=== PATIENT | male | born 1935 | race Caucasian/White ===

== ENCOUNTER 2016-12-16 09:03 | Emergency (ER) | payer MEDICARE, OTHER ==
--- NOTE | 2016-12-16 09:23 | EDM.PDOC ---
ED HPI GENERAL MEDICAL PROBLEM - General Chief Complaint: Lower Extremity Injury/Pain Stated Complaint: IN BY AMBULANCE Time Seen by Provider: 12/16/16 09:10 Source of Information: Reports: Patient History Limitations: Reports: No Limitations - History of Present Illness INITIAL COMMENTS - FREE TEXT/NARRATIVE: This 81 yo male patient was brought to the ED by [facility] due to lower back, right hip, and right lateral thigh pain. The patient reports he has had some increased leg pain over the past 2 days, but his pain was much worse today than previous. Onset: Gradual Duration: Day(s): (2), Constant, Getting Worse Location: Reports: Back, Lower Extremity, Right Quality: Reports: Dull Severity: Moderate Improves with: Reports: None Worsens with: Reports: None Context: Reports: Other Associated Symptoms: Reports: No Other Symptoms Right Leg Pain Score (Numeric/FACES): 7 - Related Data Allergies Allergy/AdvReac Type Severity Reaction Status Date / Time Penicillins Allergy Rash Verified 12/16/16 09:03 Home Meds: Home Meds Diltiazem HCl [Diltiazem 24Hr Cd] 240 mg PO DAILY 10/20/13 [History] Hydrochlorothiazide 12.5 mg PO DAILY 10/20/13 [History] Insulin Aspart [NovoLOG] 1 unit SQ QID PRN 10/20/13 [History] Insulin Glarg,Human.Rec.Analog [Lantus] 30 units SQ BEDTIME 10/20/13 [History] Potassium Chloride [Klor-Con M20] 1 tab PO DAILY 10/20/13 [History] atorvaSTATin Calcium [Atorvastatin Calcium] 1 tab PO DAILY 10/20/13 [History] Aspirin 81 mg PO DAILY 11/03/15 [History] Lisinopril 20 mg PO DAILY 11/03/15 [History] Meclizine [Antivert] 12.5 mg PO Q6H PRN #30 tablet 11/05/15 [Rx] Past Medical History HEENT History: Reports: Cataract, Impaired Vision Cardiovascular History: Reports: High Cholesterol, Hypertension Gastrointestinal History: Reports: Chronic Constipation Genitourinary History: Reports: Prostate Disorder Musculoskeletal History: Reports: Other (See Below) Other Musculoskeletal History: left wrist drop Neurological History: Reports: Neuropathy, Diabetic, Seizure, Other (See Below) Other Neuro History: West Nile Virus Encephalitis Endocrine/Metabolic History: Reports: Diabetes, Type II, Obesity/BMI 30+ Oncologic (Cancer) History: Reports: Prostate 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 ED EXAM, GENERAL - Physical Exam Exam: See Below Exam Limited By: No Limitations General Appearance: Alert, WD/WN, Moderate Distress Eye Exam: Bilateral Eye: EOMI, Normal Inspection, PERRL Ears: Normal External Exam, Normal Canal, Hearing Grossly Normal, Normal TMs Nose: Normal Inspection, Normal Mucosa, No Blood Throat/Mouth: Normal Inspection, Normal Lips, Normal Teeth, Normal Gums, Normal Oropharynx, Normal Voice, No Airway Compromise Head: Atraumatic, Normocephalic Neck: Normal Inspection, Supple, Non-Tender, Full Range of Motion Respiratory/Chest: No Respiratory Distress, Lungs Clear, Normal Breath Sounds, No Accessory Muscle Use, Chest Non-Tender Cardiovascular: Normal Peripheral Pulses, Regular Rate, Rhythm, No Edema, No Gallop, No JVD, No Murmur, No Rub GI/Abdominal: Normal Bowel Sounds, Soft, Non-Tender, No Organomegaly, No Distention, No Abnormal Bruit, No Mass (Male) Exam: Deferred Rectal (Males) Exam: Deferred Back Exam: Normal Inspection, Full Range of Motion, NT Extremities: Normal Inspection, Normal Range of Motion, Non-Tender, Normal Capillary Refill, No Pedal Edema Neurological: Alert, Oriented, CN II-XII Intact, Normal Cognition, Normal Gait, Normal Reflexes, No Motor/Sensory Deficits Psychiatric: Normal Affect, Normal Mood Skin Exam: Warm, Dry, Intact, Normal Color, No Rash Lymphatic: No Adenopathy Course - Vital Signs Last Recorded V/S: Last Vital Signs Temp 36.4 C 12/16/16 10:00 Pulse 93 12/16/16 10:00 Resp 20 12/16/16 10:00 BP 168/75 H 12/16/16 10:00 Pulse Ox 98 12/16/16 10:00 - Orders/Labs/Meds Orders: Active Orders 24 hr Category Date Time Status Hip Min 2V or 3V w Pelvis Rt [CR] Stat Exams 12/16/16 09:03 Taken Lumbar Spine 2 or 3V [CR] Urgent Exams 12/16/16 09:03 Taken Ketorolac [Toradol] Med 12/16/16 10:41 Once 30 mg IVPUSH ONETIME ONE Orphenadrine [Norflex] Med 12/16/16 10:42 Once 30 mg IM ONETIME ONE Departure - Departure Time of Disposition: 10:44 Disposition: Home, Self-Care 01 Condition: Fair Clinical Impression: Right sided sciatica - Discharge Information Instructions: Sciatica, [id number] Forms: ED Department Discharge Care Plan Goals: The patient was advised of the examination and x-ray results during the visit. The patient was given an IV dose of Toradol (30 mg) and IM dose of Norflex (30 mg) while in the ED. The patient was discharged with a script for Toradol (10 mg ) #16 to take 1 by mouth every 6 hours and Flexeril (5 mg) #10 to take 1 by mouth at bedtime as needed. If the patient continues to have symptoms or concerns, the patient should follow-up with his primary care provider or return to the emergency department. - My Orders Last 24 Hours: My Active Orders 12/16/16 09:03 Hip Min 2V or 3V w Pelvis Rt [CR] Stat Lumbar Spine 2 or 3V [CR] Urgent 12/16/16 10:41 Ketorolac [Toradol] 30 mg IVPUSH ONETIME ONE 12/16/16 10:42 Orphenadrine [Norflex] 30 mg IM ONETIME ONE - Assessment/Plan Last 24 Hours: My Active Orders 12/16/16 09:03 Hip Min 2V or 3V w Pelvis Rt [CR] Stat Lumbar Spine 2 or 3V [CR] Urgent 12/16/16 10:41 Ketorolac [Toradol] 30 mg IVPUSH ONETIME ONE 12/16/16 10:42 Orphenadrine [Norflex] 30 mg IM ONETIME ONE
[2016-12-16 10:03] VITALS: BP 168/75
[2016-12-16] MEDS ORDERED: Ketorolac 30 MG/ML SDV IVPUSH ONE (10:41)
== END 2016-12-16 11:20 | disposition home or self-care (01) ==
LOC: DL.ED 09:03
DX: M54.41 Lumbago with sciatica, right side (principal); H54.7 Unspecified visual loss; E78.00 Pure hypercholesterolemia, unspecified; I10 Essential (primary) hypertension; E11.40 Type 2 diabetes mellitus with diabetic neuropathy, unspecified; E66.9 Obesity, unspecified; Z98.890 Other specified postprocedural states; Z98.49 Cataract extraction status, unspecified eye; Z88.0 Allergy status to penicillin; Z79.899 Other long term (current) drug therapy
CPT/HCPCS: 72100; 73502; 96372; 96374; 99284; J1885; J2360

== ENCOUNTER 2016-12-17 18:15 | Observation (INO) | payer MEDICARE, OTHER ==
[2016-12-17] MEDS ORDERED: HYDROmorphone 1 MG/ML Syringe IVPUSH ONE (19:40)
[2016-12-17] MEDS ORDERED: Ondansetron 4 MG/2 ML SDV IV ONE (19:40)
[2016-12-17 20:22] LABS: CHLORIDE,CL 101 mmol/L (101-111); SODIUM,NA 142 mmol/L (135-145)
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
[2016-12-17] MEDS ORDERED: Sodium Chloride 0.9% 10 ML Syringe FLUSH PRN (21:08)
[2016-12-17] MEDS ORDERED: Acetaminophen 325 MG Tab PO PRN (21:08)
[2016-12-17] MEDS ORDERED: Ondansetron 4 MG Tab.DIS PO PRN (21:08)
[2016-12-17] MEDS ORDERED: Ketorolac 30 MG/ML SDV IM PRN (21:08)
[2016-12-17] MEDS ORDERED: Meclizine 12.5 MG Tab PO PRN (21:13)
[2016-12-17] MEDS ORDERED: Insulin Aspart 100 Units/ML 3 ML Pen SUBCUT PRN (21:13)
[2016-12-17] MEDS: Heparin Sodium 5,000 Units/ML Vial SUBCUT SCH (22:04)
[2016-12-17] MEDS: Insulin Detemir 100 Units/ML 3 ML Pen SUBCUT SCH (23:06)
[2016-12-17] MEDS: HYDROmorphone 1 MG/ML Syringe IVPUSH PRN (23:21)
[2016-12-18] MEDS ORDERED: Ketorolac 30 MG/ML SDV IVPUSH PRN (01:07)
[2016-12-18] MEDS ORDERED: Insulin Aspart 100 Units/ML 3 ML Pen SUBCUT SCH (09:00)
--- NOTE | 2016-12-18 09:02 | HP ---
CHIEF COMPLAINT: Mr. Kishan Knowles is an 81-year-old male with medical history of diabetes mellitus, dyslipidemia, and hypertension. The patient began to experience pain in the right hip area about 1 week ago. Pain initially was constant but intermittently flared up. Intensity is up to 10 on a scale of 0 to 10. It radiates down to the right knee. It is worse when he tries to ambulate. He was seen in the emergency room yesterday, treated empirically with pain medications, and sent home. He did okay for a few hours but the pain got worse when he tried to take off his stockings. Did have associated nausea and vomited once today. No fever. No chills. No cough. No wheezing. No dysuria, frequency, or micturition. REVIEW OF SYSTEMS: A 10-point review of systems was performed including constitutional, cardiac, respiratory, gastrointestinal, and genitourinary. No other pertinent findings except as noted above. PAST MEDICAL HISTORY: Dyslipidemia, hypertension, diabetes mellitus, benign prostatic hypertrophy, impaired vision. FAMILY HISTORY: Reviewed and considered noncontributory. SOCIAL HISTORY: No tobacco use. No alcohol use. The patient is single. CURRENT MEDICATIONS: Reviewed. Includes: 1. Diltiazem. 2. Lipitor. 3. Insulin. 4. Hydrochlorothiazide. 5. Aspirin. 6. Lisinopril. 7. Meclizine. OBJECTIVE: General: The patient is alert and oriented to place, time, and person. Head: Atraumatic and normocephalic. Ears, Nose, and Throat: Unremarkable. Neck: Supple. Chest: Clear to auscultation. Cardiovascular System: Regular rate and rhythm. Abdomen: Soft and nontender. Musculoskeletal: Tenderness over the right hip area on palpation. No rebound tenderness. Extremities: No pedal edema. No finger clubbing. Skin: No rash. Vital Signs: Reviewed and considered noncontributory. Blood pressure is elevated at 168/72. LABORATORY DATA: Complete blood count is normal. Basic metabolic panel is unremarkable except for glucose of 230. Urinalysis shows 250 glucose with no white cells. ASSESSMENT: 1. Right hip pain. This is likely due to bursitis. Palpation of the left as well as the right hip worsens the pain. This suggests bursitis. 2. Possible osteoarthritis of the right hip. The patient does have increased pain when he moves his right lower extremity. Could still be due to bursitis. CT scan did show significant osteoarthritis. 3. Diabetes mellitus, type 2, on insulin therapy. 4. Hypertension. Blood pressure is suboptimally controlled. 5. Dyslipidemia. PLAN: 1. Admit the patient to medical floor. 2. Intravenous Toradol and intravenous Dilaudid for pain control. 3. Antiemetic protocol. 4. The patient may end up needing to have steroid injection to the right hip area. I suspect this might be trochanteric bursitis. Chart reviewed. Discussed with emergency room physician floor covering printer assistant. [facility] /[id number] FRANCIA
[2016-12-18] MEDS: atorvaSTATin 10 MG Tab PO SCH (09:09)
[2016-12-18] MEDS: Hydrochlorothiazide 25 MG Tab PO SCH (09:09)
[2016-12-18] MEDS: Diltiazem 240 MG Cap.CD PO SCH (09:09)
[2016-12-18] MEDS: Lisinopril 20 MG Tab PO SCH (09:09)
[2016-12-18] MEDS: Aspirin 81 MG Tab.Chew PO SCH (09:09)
[2016-12-18] MEDS: Potassium Chloride 10 MEQ Tab.ER PO SCH (09:09)
[2016-12-18] MEDS: HYDROmorphone 1 MG/ML Syringe IVPUSH PRN ×2 (09:32→20:19)
--- NOTE | 2016-12-18 09:35 | PCM.PN ---
- General Info Date of Service: 12/18/16 Admission Dx/Problem (Free Text): r. sided hip pain, knee pain Subjective Update: Presented with about a week history of right-sided hip pain The pain starts in the hip and radiates down associated with pain in the knee as well. There is no redness, no falling. Pain is sharp on and off, worse with activity. Better with rest Overnight was treated with Toradol, Dilaudid Functional Status: Reports: Tolerating Diet. Denies: Pain Controlled, Ambulating - Review of Systems General: Reports: Weakness. Denies: Fever Pulmonary: Denies: Shortness of Breath Cardiovascular: Denies: Chest Pain Gastrointestinal: Denies: Abdominal Pain Genitourinary: Denies: Dysuria - Patient Data Vitals - Most Recent: Last Vital Signs Temp 36.7 C 12/18/16 07:30 Pulse 50 L 12/18/16 07:30 Resp 20 12/18/16 07:30 BP 177/86 H 12/18/16 09:09 Pulse Ox 99 12/18/16 07:30 Weight - Most Recent: 80.104 kg I&O - Last 24 Hours: Intake & Output 12/17/16 12/18/16 12/18/16 22:59 06:59 14:59 Intake Total 240 150 120 Output Total 200 Balance 240 -50 120 Lab Results Last 24 Hours: Laboratory Results - last 24 hr 12/18/16 Range/Units 07:52 POC Glucose 149 H (83-110) mg/dl Med Orders - Current: Current Medications Acetaminophen (Tylenol) 650 mg PO Q4H PRN PRN Reason: Pain (Mild 1-3)/fever Aspirin (Aspirin) 81 mg PO DAILY [facility] Last Admin: 12/18/16 09:09 Dose: 81 mg Atorvastatin Calcium (Lipitor) 10 mg PO DAILY [facility] Last Admin: 12/18/16 09:09 Dose: 10 mg Dexamethasone (Dexamethasone) 4 mg PO BID [facility] Diltiazem HCl (Cardizem Cd) 240 mg PO DAILY [facility] Last Admin: 12/18/16 09:09 Dose: 240 mg Heparin Sodium (Porcine) (Heparin Sodium) 5,000 units SUBCUT Q8HR [facility] Last Admin: 12/17/16 22:04 Dose: 5,000 units Hydrochlorothiazide (Hydrochlorothiazide) 12.5 mg PO DAILY [facility] Last Admin: 12/18/16 09:09 Dose: 12.5 mg Hydromorphone HCl (Dilaudid) 0.25 mg IVPUSH Q2H PRN PRN Reason: Pain (severe 7-10) Last Admin: 12/17/16 23:21 Dose: 0.25 mg Insulin Aspart (Novolog) 1 unit SUBCUT QID [facility] Insulin Detemir (Levemir) 30 unit SUBCUT BEDTIME [facility] Last Admin: 12/17/16 23:06 Dose: 30 units Ketorolac Tromethamine (Toradol) 15 mg IVPUSH Q6H PRN PRN Reason: Pain (moderate 4-6) Stop: 12/23/16 01:07 Lisinopril (Prinivil) 20 mg PO DAILY [facility] Last Admin: 12/18/16 09:09 Dose: 20 mg Meclizine HCl (Antivert) 12.5 mg PO Q6H PRN PRN Reason: dizzyness Ondansetron HCl (Zofran Odt) 8 mg PO Q4H PRN PRN Reason: nausea, able to take PO Potassium Chloride (Klor-Con 10) 20 meq PO WITHBREAKFAST [facility] Last Admin: 12/18/16 09:09 Dose: 20 meq Sodium Chloride (Saline Flush) 10 ml FLUSH ASDIRECTED PRN PRN Reason: Keep Vein Open Discontinued Medications Hydromorphone HCl (Dilaudid) 0.5 mg IVPUSH ONETIME ONE Stop: 12/17/16 19:41 Last Admin: 12/17/16 19:47 Dose: 0.5 mg Insulin Aspart (Novolog) 1 unit SUBCUT QID PRN PRN Reason: Blood Glucose Ketorolac Tromethamine (Toradol) 30 mg IM Q6H PRN PRN Reason: Pain (moderate 4-6) Stop: 12/18/16 01:07 Ketorolac Tromethamine (Toradol) 30 mg IVPUSH Q6H PRN PRN Reason: Pain (moderate 4-6) Stop: 12/23/16 01:07 Last Admin: 12/18/16 01:34 Dose: 30 mg Ondansetron HCl (Zofran) 4 mg IV ONETIME ONE Stop: 12/17/16 19:41 Last Admin: 12/17/16 19:47 Dose: 4 mg - Exam Quality Assessment: No: Supplemental Oxygen General: Alert, Oriented Neck: Supple Lungs: Clear to Auscultation, Normal Respiratory Effort Cardiovascular: Regular Rate, Regular Rhythm GI/Abdominal Exam: Normal Bowel Sounds, Soft, Non-Tender Back Exam: Normal Inspection Extremities: Normal Inspection, No Pedal Edema, Other (No knee swelling) Skin: Warm, Dry Neurological: No New Focal Deficit Psy/Mental Status: Alert, Normal Affect - Problem List & Annotations (1) Diabetes SNOMED Code(s): 95410612 Code(s): E11.9 - TYPE 2 DIABETES MELLITUS WITHOUT COMPLICATIONS Status: Acute Current Visit: Yes Qualifiers: Diabetes mellitus type: type 2 Diabetes mellitus complication status: without complication Diabetes mellitus termite inspector insulin use: unspecified termite inspector insulin use status Qualified Code(s): E11.9 - Type 2 diabetes mellitus without complications (2) HTN (hypertension) SNOMED Code(s): 52608024 Code(s): I10 - ESSENTIAL (PRIMARY) HYPERTENSION Status: Acute Current Visit: Yes Qualifiers: Hypertension type: essential hypertension Qualified Code(s): I10 - Essential (primary) hypertension (3) Right sided sciatica SNOMED Code(s): 66611026 Code(s): M54.31 - SCIATICA, RIGHT SIDE Status: Acute Current Visit: No - Problem List Review Problem List Initiated/Reviewed/Updated: Yes - My Orders Last 24 Hours: My Active Orders 12/18/16 09:11 Ketorolac [Toradol] 15 mg IVPUSH Q6H PRN 12/18/16 09:30 Cooling Warming Measures [RC] ASDIRECTED K Pad [Heat Therapy] [OM.PC] Routine 12/18/16 21:00 Dexamethasone 4 mg PO BID 12/18/16 Lunch Consistent Carbohydrate Diet [DIET] - Assessment Assessment:: 1. Right-sided hip pain, radiating down to the knee This might represent osteoarthritis versus sciatica No apparent right hip fracture on x-ray Will treat with physical therapy, occupational therapy. Add dexamethasone, Neurontin. Will use heat and cold therapy. 2. Hypertension Treat with hydrochlorothiazide, lisinopril, Cardizem 3. Diabetes Treat with Levemir and short-acting insulin combination. Use supplemental insulin as needed Follow blood sugars 4 times a day Follow blood sugars with the systemic steroids, blood sugars might be elevated 4. DVT prophylaxis will be with subcutaneous heparin Discussed with Dr. Martin today
[2016-12-18] MEDS: Gabapentin 100 MG Cap PO SCH ×3 (10:25→20:57)
[2016-12-18] MEDS: Lactulose Soln 10 GM/15 ML 30 ML UD Cup PO SCH ×2 (10:25→14:17)
[2016-12-18] MEDS: Heparin Sodium 5,000 Units/ML Vial SUBCUT SCH ×3 (11:04→21:46)
[2016-12-18] MEDS: Ketorolac 30 MG/ML SDV IVPUSH PRN (11:16)
[2016-12-18] MEDS: Insulin Aspart 100 Units/ML 3 ML Pen SUBCUT SCH ×2 (12:40→17:33)
[2016-12-18] MEDS: Dexamethasone 4 MG Tab PO SCH (20:57)
[2016-12-18] MEDS ORDERED: INSULIN GLARG HUMAN REC ANALOG 30 UNIT SQ SCH (21:00)
[2016-12-18] MEDS: Insulin Detemir 100 Units/ML 3 ML Pen SUBCUT SCH (21:45)
[2016-12-19] MEDS: Ketorolac 30 MG/ML SDV IVPUSH PRN (05:38)
[2016-12-19] MEDS: Heparin Sodium 5,000 Units/ML Vial SUBCUT SCH ×3 (05:41→22:17)
[2016-12-19] MEDS: Insulin Aspart 100 Units/ML 3 ML Pen SUBCUT SCH ×3 (10:16→17:10)
[2016-12-19] MEDS: Potassium Chloride 10 MEQ Tab.ER PO SCH (10:17)
[2016-12-19] MEDS: Hydrochlorothiazide 25 MG Tab PO SCH (10:18)
[2016-12-19] MEDS: Aspirin 81 MG Tab.Chew PO SCH (10:19)
[2016-12-19] MEDS: Dexamethasone 4 MG Tab PO SCH ×2 (10:20→20:58)
[2016-12-19] MEDS: Lisinopril 20 MG Tab PO SCH (10:20)
[2016-12-19] MEDS: Diltiazem 240 MG Cap.CD PO SCH (10:20)
[2016-12-19] MEDS: Gabapentin 100 MG Cap PO SCH ×3 (10:21→20:58)
[2016-12-19] MEDS: atorvaSTATin 10 MG Tab PO SCH (10:21)
[2016-12-19] MEDS ORDERED: Ibuprofen 400 MG Tab PO SCH (10:45)
--- NOTE | 2016-12-19 10:55 | PCM.PN ---
- General Info Date of Service: 12/19/16 Admission Dx/Problem (Free Text): r. sided hip pain, knee pain Subjective Update: Presented with about a week history of right-sided hip pain The pain starts in the hip and radiates down associated with pain in the knee as well. There is no redness, no falling. Pain is sharp on and off, worse with activity. Better with rest. Has improved since admission. Was working with physical therapy but that made the pain worse. Reports improvement since starting Neurontin, dexamethasone. - Review of Systems General: Denies: Fever Pulmonary: Denies: Shortness of Breath Cardiovascular: Denies: Chest Pain Gastrointestinal: Denies: Abdominal Pain Musculoskeletal: Reports: Leg Pain (right). Denies: Neck Pain Neurological: Denies: Confusion - Patient Data Vitals - Most Recent: Last Vital Signs Temp 36.9 C 12/19/16 07:00 Pulse 78 12/19/16 07:00 Resp 20 12/19/16 07:00 BP 134/62 12/19/16 10:20 Pulse Ox 98 12/19/16 07:00 Weight - Most Recent: 80.104 kg I&O - Last 24 Hours: Intake & Output 12/18/16 12/19/16 12/19/16 22:59 06:59 14:59 Intake Total 120 150 Balance 120 150 Lab Results Last 24 Hours: Laboratory Results - last 24 hr 12/18/16 12/18/16 12/18/16 Range/Units 11:12 16:49 21:00 POC Glucose 213 H 235 H 202 H (83-110) mg/dl 12/19/16 Range/Units 07:51 POC Glucose 324 H (83-110) mg/dl Med Orders - Current: Current Medications Acetaminophen (Tylenol) 650 mg PO Q4H PRN PRN Reason: Pain (Mild 1-3)/fever Aspirin (Aspirin) 81 mg PO DAILY [facility] Last Admin: 12/19/16 10:19 Dose: 81 mg Atorvastatin Calcium (Lipitor) 10 mg PO DAILY [facility] Last Admin: 12/19/16 10:21 Dose: 10 mg Dexamethasone (Dexamethasone) 4 mg PO BID [facility] Last Admin: 12/19/16 10:20 Dose: 4 mg Diltiazem HCl (Cardizem Cd) 240 mg PO DAILY [facility] Last Admin: 12/19/16 10:20 Dose: 240 mg Gabapentin (Neurontin) 200 mg PO TID [facility] Heparin Sodium (Porcine) (Heparin Sodium) 5,000 units SUBCUT Q8HR [facility] Last Admin: 12/19/16 05:41 Dose: 5,000 units Hydrochlorothiazide (Hydrochlorothiazide) 25 mg PO DAILY [facility] Hydromorphone HCl (Dilaudid) 0.25 mg IVPUSH Q2H PRN PRN Reason: Pain (severe 7-10) Last Admin: 12/18/16 20:19 Dose: 0.25 mg Ibuprofen (Motrin) 400 mg PO Q8H [facility] Insulin Aspart (Novolog) 0 unit SUBCUT TIDAC [facility] PRN Reason: Protocol Last Admin: 12/19/16 10:16 Dose: 8 units Insulin Detemir (Levemir) 30 unit SUBCUT BEDTIME [facility] Last Admin: 12/18/16 21:45 Dose: 30 units Lisinopril (Prinivil) 20 mg PO DAILY [facility] Last Admin: 12/19/16 10:20 Dose: 20 mg Meclizine HCl (Antivert) 12.5 mg PO Q6H PRN PRN Reason: dizzyness Ondansetron HCl (Zofran Odt) 8 mg PO Q4H PRN PRN Reason: nausea, able to take PO Oxycodone/Acetaminophen (Percocet 325-5 Mg) 1 tab PO Q6H PRN PRN Reason: Pain Potassium Chloride (Klor-Con 10) 20 meq PO WITHBREAKFAST [facility] Last Admin: 12/19/16 10:17 Dose: 20 meq Senna/Docusate Sodium (Senna Plus) 1 tab PO BID [facility] Last Admin: 12/19/16 10:18 Dose: 1 tab Sodium Chloride (Saline Flush) 10 ml FLUSH ASDIRECTED PRN PRN Reason: Keep Vein Open Discontinued Medications Gabapentin (Neurontin) 100 mg PO TID [facility] Last Admin: 12/19/16 10:21 Dose: 100 mg Hydrochlorothiazide (Hydrochlorothiazide) 12.5 mg PO DAILY [facility] Last Admin: 12/19/16 10:18 Dose: 12.5 mg Hydromorphone HCl (Dilaudid) 0.5 mg IVPUSH ONETIME ONE Stop: 12/17/16 19:41 Last Admin: 12/17/16 19:47 Dose: 0.5 mg Insulin Aspart (Novolog) 1 unit SUBCUT QID PRN PRN Reason: Blood Glucose Insulin Aspart (Novolog) 1 unit SUBCUT QID [facility] Last Admin: 12/18/16 09:31 Dose: 1 unit Ketorolac Tromethamine (Toradol) 30 mg IM Q6H PRN PRN Reason: Pain (moderate 4-6) Stop: 12/18/16 01:07 Ketorolac Tromethamine (Toradol) 30 mg IVPUSH Q6H PRN PRN Reason: Pain (moderate 4-6) Stop: 12/23/16 01:07 Last Admin: 12/18/16 01:34 Dose: 30 mg Ketorolac Tromethamine (Toradol) 15 mg IVPUSH Q6H PRN PRN Reason: Pain (moderate 4-6) Stop: 12/23/16 01:07 Last Admin: 12/19/16 05:38 Dose: 15 mg Lactulose (Cephulac) 20 gm PO TID [facility] Stop: 12/18/16 14:01 Last Admin: 12/18/16 14:17 Dose: 20 gm Ondansetron HCl (Zofran) 4 mg IV ONETIME ONE Stop: 12/17/16 19:41 Last Admin: 12/17/16 19:47 Dose: 4 mg - Exam General: Alert, Oriented Neck: Supple Lungs: Clear to Auscultation, Normal Respiratory Effort GI/Abdominal Exam: Normal Bowel Sounds, Soft, Non-Tender Back Exam: Normal Inspection. No: Paraspinal Tenderness Extremities: No Pedal Edema, Leg Pain Skin: Warm, Dry Neurological: No New Focal Deficit Psy/Mental Status: Alert, Normal Affect, Normal Mood - Problem List & Annotations (1) Diabetes SNOMED Code(s): 65200346 Code(s): E11.9 - TYPE 2 DIABETES MELLITUS WITHOUT COMPLICATIONS Status: Acute Current Visit: Yes Qualifiers: Diabetes mellitus type: type 2 Diabetes mellitus complication status: without complication Diabetes mellitus fpc insulin use: unspecified fpc insulin use status Qualified Code(s): E11.9 - Type 2 diabetes mellitus without complications (2) HTN (hypertension) SNOMED Code(s): 17176175 Code(s): I10 - ESSENTIAL (PRIMARY) HYPERTENSION Status: Acute Current Visit: Yes Qualifiers: Hypertension type: essential hypertension Qualified Code(s): I10 - Essential (primary) hypertension (3) Right sided sciatica SNOMED Code(s): 38916706 Code(s): M54.31 - SCIATICA, RIGHT SIDE Status: Acute Current Visit: No - Problem List Review Problem List Initiated/Reviewed/Updated: Yes - My Orders Last 24 Hours: My Active Orders 12/18/16 12:45 Insulin Aspart [NovoLOG] See Protocol SUBCUT TIDAC 12/18/16 21:00 Dexamethasone 4 mg PO BID Docusate Sodium/Sennosides [Senna Plus] 1 tab PO BID 12/18/16 Lunch Consistent Carbohydrate Diet [DIET] 12/19/16 10:44 Gabapentin [Neurontin] 200 mg PO TID 12/19/16 10:45 Ibuprofen [Motrin] 400 mg PO Q8H 12/19/16 10:49 Acetaminophen/oxyCODONE [Percocet 325-5 MG] 1 tab PO Q6H PRN 12/20/16 09:00 Hydrochlorothiazide 25 mg PO DAILY - Assessment Assessment:: 1. Right-sided hip pain, radiating down to the knee This might represent hip osteoarthritis versus sciatica No apparent right hip fracture on x-ray Will treat with physical therapy, occupational therapy. contiue dexamethasone, increase Neurontin. add scheduled motrin use prn percocet Will use heat and cold therapy. 2. Hypertension uncontrolled Treat with lisinopril, Cardizem increase hydrochlorothiazide 3. Diabetes Treat with Levemir and short-acting insulin combination. Use supplemental insulin as needed Follow blood sugars 4 times a day Follow blood sugars with the systemic steroids, blood sugars might be elevated 4. DVT prophylaxis will be with subcutaneous heparin
[2016-12-19] MEDS ORDERED: Insulin Aspart 100 Units/ML 3 ML Pen SUBCUT ONE (11:25)
[2016-12-19] MEDS: HYDROmorphone 1 MG/ML Syringe IVPUSH PRN (12:12)
[2016-12-19] MEDS: Ibuprofen 400 MG Tab PO SCH ×2 (13:57→22:18)
[2016-12-19] MEDS: Acetaminophen/oxyCODONE 325-5 MG Tab PO PRN (17:16)
[2016-12-19] MEDS: Insulin Detemir 100 Units/ML 3 ML Pen SUBCUT SCH (21:16)
[2016-12-20] MEDS: Ibuprofen 400 MG Tab PO SCH ×2 (05:23→13:59)
[2016-12-20] MEDS: Heparin Sodium 5,000 Units/ML Vial SUBCUT SCH (05:24)
[2016-12-20] MEDS: Potassium Chloride 10 MEQ Tab.ER PO SCH (08:39)
[2016-12-20] MEDS: Insulin Aspart 100 Units/ML 3 ML Pen SUBCUT SCH ×2 (08:39→12:12)
[2016-12-20] MEDS: Dexamethasone 4 MG Tab PO SCH (08:40)
[2016-12-20] MEDS: Diltiazem 240 MG Cap.CD PO SCH (08:40)
[2016-12-20] MEDS: Aspirin 81 MG Tab.Chew PO SCH (08:40)
[2016-12-20] MEDS: atorvaSTATin 10 MG Tab PO SCH (08:41)
[2016-12-20] MEDS: Gabapentin 100 MG Cap PO SCH ×2 (08:41→13:59)
[2016-12-20] MEDS: Lisinopril 20 MG Tab PO SCH (08:41)
[2016-12-20] MEDS ORDERED: Hydrochlorothiazide 25 MG Tab PO SCH (09:00)
[2016-12-20 12:10] VITALS: BP 153/79
[2016-12-20] MEDS: Acetaminophen/oxyCODONE 325-5 MG Tab PO PRN (12:11)
--- NOTE | 2016-12-20 13:48 | PCM.DCSUM1 ---
Discharge Summary - Hospital Course Free Text/Narrative:: 1. Right-sided hip pain, radiating down to the knee likely due to sciatica No apparent right hip fracture on x-ray CT of the pelvis showed spinal stenosis at L3/L4 and L4/L5 levels, no acute fracture Treated with physical therapy, occupational therapy. contiue dexamethasone, Neurontin. add scheduled motrin use prn percocet use heat and cold therapy. 2. Hypertension was uncontrolled Treat with lisinopril, Cardizem increase hydrochlorothiazide 3. Diabetes Treat with Levemir and short-acting insulin combination. follow up with PMD and out pt PT also discussed suggestions to move into assisted living - Discharge Data Discharge Date: 12/20/16 Discharge Disposition: Home, Self-Care 01 Condition: Good - Discharge Diagnosis/Problem(s) (1) Diabetes SNOMED Code(s): 36288535 ICD Code: E11.9 - TYPE 2 DIABETES MELLITUS WITHOUT COMPLICATIONS Status: Acute Current Visit: Yes Qualifiers: Diabetes mellitus type: type 2 Diabetes mellitus complication status: without complication Diabetes mellitus alf insulin use: unspecified terminal carman insulin use status Qualified Code(s): E11.9 - Type 2 diabetes mellitus without complications (2) HTN (hypertension) SNOMED Code(s): 13041208 ICD Code: I10 - ESSENTIAL (PRIMARY) HYPERTENSION Status: Acute Current Visit: Yes Qualifiers: Hypertension type: essential hypertension Qualified Code(s): I10 - Essential (primary) hypertension (3) Right sided sciatica SNOMED Code(s): 70725835 ICD Code: M54.31 - SCIATICA, RIGHT SIDE Status: Acute Current Visit: No - Patient Instructions Diet: Diabetic Diet Activity: As Tolerated - Discharge Plan Prescriptions/Med Rec: Ibuprofen [Motrin] 400 mg PO Q8HR #30 tablet Acetaminophen/oxyCODONE [Percocet 325-5 MG] 1 tab PO Q6H PRN #12 tablet PRN Reason: Pain Cyclobenzaprine [Flexeril] 5 mg PO BEDTIME PRN #30 tablet PRN Reason: Pain Dexamethasone 4 mg PO DAILY #3 tablet Gabapentin [Neurontin] 200 mg PO TID #90 cap Hydrochlorothiazide 25 mg PO DAILY #30 tablet Home Medications: Home Meds Diltiazem HCl [Diltiazem 24Hr Cd] 240 mg PO DAILY 10/20/13 [History] Insulin Aspart [NovoLOG] 1 unit SQ QID PRN 10/20/13 [History] Insulin Glarg,Human.Rec.Analog [Lantus] 30 units SQ BEDTIME 10/20/13 [History] Potassium Chloride [Klor-Con M20] 1 tab PO DAILY 10/20/13 [History] atorvaSTATin Calcium [Atorvastatin Calcium] 1 tab PO DAILY 10/20/13 [History] Aspirin 81 mg PO DAILY 11/03/15 [History] Lisinopril 20 mg PO DAILY 11/03/15 [History] Meclizine [Antivert] 12.5 mg PO Q6H PRN #30 tablet 11/05/15 [Rx] Docusate Sodium/Sennosides [Senna Plus] 1 tab PO BEDTIME 12/17/16 [History] Sennosides [Laxative Maximum Strength] 25 mg PO BEDTIME 12/17/16 [History] Acetaminophen/oxyCODONE [Percocet 325-5 MG] 1 tab PO Q6H PRN #12 tablet [Rx] Cyclobenzaprine [Flexeril] 5 mg PO BEDTIME PRN #30 tablet 12/20/16 [Rx] Dexamethasone 4 mg PO DAILY #3 tablet 12/20/16 [Rx] Gabapentin [Neurontin] 200 mg PO TID #90 cap 12/20/16 [Rx] Hydrochlorothiazide 25 mg PO DAILY #30 tablet 12/20/16 [Rx] Ibuprofen [Motrin] 400 mg PO Q8HR #30 tablet 12/20/16 [Rx] Patient Handouts: Sciatica Referrals: PCP,Unobtain [Ordering Only Provider] - (dr. Pena in 2-3 days) - General Info Date of Service: 12/20/16 Functional Status: Reports: Pain Controlled - Review of Systems General: Denies: Fever, Weakness Pulmonary: Denies: Shortness of Breath Cardiovascular: Denies: Chest Pain Musculoskeletal: Reports: Leg Pain (episodes of r. hip, thigh, knee pain but able to ambulate with walker) Neurological: Denies: Confusion - Patient Data Vitals - Most Recent: Last Vital Signs Temp 37.1 C 12/20/16 11:00 Pulse 86 12/20/16 11:00 Resp 20 12/20/16 11:00 BP 153/79 H 12/20/16 11:00 Pulse Ox 97 12/20/16 11:00 Weight - Most Recent: 80.104 kg I&O - Last 24 hours: Intake & Output 12/19/16 12/20/16 12/20/16 22:59 06:59 14:59 Output Total 350 250 Balance -350 -250 Lab Results - Last 24 hrs: Laboratory Results - last 24 hr 12/19/16 12/19/16 12/20/16 Range/Units 16:47 21:14 07:36 POC Glucose 366 H 365 H 305 H (83-110) mg/dl 12/20/16 Range/Units 10:47 POC Glucose 344 H (83-110) mg/dl Med Orders - Current: Current Medications Acetaminophen (Tylenol) 650 mg PO Q4H PRN PRN Reason: Pain (Mild 1-3)/fever Aspirin (Aspirin) 81 mg PO DAILY [facility] Last Admin: 12/20/16 08:40 Dose: 81 mg Atorvastatin Calcium (Lipitor) 10 mg PO DAILY [facility] Last Admin: 12/20/16 08:41 Dose: 10 mg Dexamethasone (Dexamethasone) 4 mg PO DAILY [facility] Diltiazem HCl (Cardizem Cd) 240 mg PO DAILY [facility] Last Admin: 12/20/16 08:40 Dose: 240 mg Gabapentin (Neurontin) 200 mg PO TID [facility] Last Admin: 12/20/16 08:41 Dose: 200 mg Heparin Sodium (Porcine) (Heparin Sodium) 5,000 units SUBCUT Q8HR [facility] Last Admin: 12/20/16 05:24 Dose: 5,000 units Hydrochlorothiazide (Hydrochlorothiazide) 25 mg PO DAILY [facility] Last Admin: 12/20/16 08:41 Dose: 25 mg Hydromorphone HCl (Dilaudid) 0.25 mg IVPUSH Q2H PRN PRN Reason: Pain (severe 7-10) Last Admin: 12/19/16 12:12 Dose: 0.25 mg Ibuprofen (Motrin) 400 mg PO Q8HR [facility] Last Admin: 12/20/16 05:23 Dose: 400 mg Insulin Aspart (Novolog) 0 unit SUBCUT TIDAC [facility] PRN Reason: Protocol Last Admin: 12/20/16 12:12 Dose: 8 units Insulin Detemir (Levemir) 30 unit SUBCUT BEDTIME [facility] Last Admin: 12/19/16 21:16 Dose: 30 units Lisinopril (Prinivil) 20 mg PO DAILY [facility] Last Admin: 12/20/16 08:41 Dose: 20 mg Meclizine HCl (Antivert) 12.5 mg PO Q6H PRN PRN Reason: dizzyness Ondansetron HCl (Zofran Odt) 8 mg PO Q4H PRN PRN Reason: nausea, able to take PO Oxycodone/Acetaminophen (Percocet 325-5 Mg) 1 tab PO Q6H PRN PRN Reason: Pain Last Admin: 12/20/16 12:11 Dose: 1 tab Potassium Chloride (Klor-Con 10) 20 meq PO WITHBREAKFAST [facility] Last Admin: 12/20/16 08:39 Dose: 20 meq Senna/Docusate Sodium (Senna Plus) 1 tab PO BID [facility] Last Admin: 12/20/16 08:42 Dose: 1 tab Sodium Chloride (Saline Flush) 10 ml FLUSH ASDIRECTED PRN PRN Reason: Keep Vein Open Discontinued Medications Dexamethasone (Dexamethasone) 4 mg PO BID [facility] Last Admin: 12/20/16 08:40 Dose: 4 mg Gabapentin (Neurontin) 100 mg PO TID [facility] Last Admin: 12/19/16 10:21 Dose: 100 mg Hydrochlorothiazide (Hydrochlorothiazide) 12.5 mg PO DAILY [facility] Last Admin: 12/19/16 10:18 Dose: 12.5 mg Hydromorphone HCl (Dilaudid) 0.5 mg IVPUSH ONETIME ONE Stop: 12/17/16 19:41 Last Admin: 12/17/16 19:47 Dose: 0.5 mg Ibuprofen (Motrin) 400 mg PO Q8H [facility] Last Admin: 12/19/16 11:26 Dose: Not Given Insulin Aspart (Novolog) 1 unit SUBCUT QID PRN PRN Reason: Blood Glucose Insulin Aspart (Novolog) 1 unit SUBCUT QID [facility] Last Admin: 12/18/16 09:31 Dose: 1 unit Insulin Aspart (Novolog) 14 unit SUBCUT ONETIME ONE Stop: 12/19/16 11:26 Last Admin: 12/19/16 12:39 Dose: 14 units Ketorolac Tromethamine (Toradol) 30 mg IM Q6H PRN PRN Reason: Pain (moderate 4-6) Stop: 12/18/16 01:07 Ketorolac Tromethamine (Toradol) 30 mg IVPUSH Q6H PRN PRN Reason: Pain (moderate 4-6) Stop: 12/23/16 01:07 Last Admin: 12/18/16 01:34 Dose: 30 mg Ketorolac Tromethamine (Toradol) 15 mg IVPUSH Q6H PRN PRN Reason: Pain (moderate 4-6) Stop: 12/23/16 01:07 Last Admin: 12/19/16 05:38 Dose: 15 mg Lactulose (Cephulac) 20 gm PO TID [facility] Stop: 12/18/16 14:01 Last Admin: 12/18/16 14:17 Dose: 20 gm Ondansetron HCl (Zofran) 4 mg IV ONETIME ONE Stop: 12/17/16 19:41 Last Admin: 12/17/16 19:47 Dose: 4 mg - Exam General: Reports: Alert, Oriented Neck: Reports: Supple Lungs: Reports: Clear to Auscultation, Normal Respiratory Effort Cardiovascular: Reports: Regular Rate, Regular Rhythm Extremities: No Pedal Edema Neurological: Reports: No New Focal Deficit, Other (contracture left UE fingers) Psy/Mental Status: Reports: Alert, Normal Affect, Normal Mood *Q Meaningful Use (DIS) - VTE *Q VTE Criteria *Q: - Stroke *Q Stroke Criteria *Q: - AMI *Q AMI Criteria *Q:
[2016-12-21] MEDS ORDERED: Dexamethasone 4 MG Tab PO SCH (09:00)
== END 2016-12-20 15:00 | disposition home or self-care (01) ==
LOC: DL.ED 18:15 → DL.MS 21:08 → UNDOADMOB 21:10
PROVIDERS: ADMIT Hospitalist; ATTEND Hospitalist
DX: M25.551 Pain in right hip (principal); I10 Essential (primary) hypertension; E11.9 Type 2 diabetes mellitus without complications; E78.5 Hyperlipidemia, unspecified; N40.0 Benign prostatic hyperplasia without lower urinary tract symptoms; M54.31 Sciatica, right side; Z79.4 Long term (current) use of insulin; Z79.899 Other long term (current) drug therapy; Z98.890 Other specified postprocedural states
CPT/HCPCS: 36415; 73700; 80053; 81001; 82962; 85025; 96372; 96374; 96375; 96376; 97162; 97165; 99284; 99285; A9270; G0378; J1170; J1644; J1815; J1885; J2405; J8540; 99217; 99225

== ENCOUNTER 2016-12-23 10:56 | Observation (INO) | payer MEDICARE, OTHER ==
[2016-12-23] MEDS ORDERED: Acetaminophen/oxyCODONE 325-5 MG Tab PO PRN (12:43)
[2016-12-23] MEDS ORDERED: Cyclobenzaprine 10 MG Tab PO PRN (12:43)
[2016-12-23] MEDS ORDERED: Ketorolac 10 MG Tab PO PRN (12:43)
[2016-12-23] MEDS ORDERED: Zolpidem 5 MG Tab PO PRN (12:46)
[2016-12-23] MEDS ORDERED: Ondansetron 4 MG Tab.DIS PO PRN (12:46)
[2016-12-23] MEDS ORDERED: Morphine 2 MG/ML Syringe IVPUSH PRN (12:46)
[2016-12-23] MEDS: Lidocaine 5% 700 MG Patch TOP SCH (14:40)
[2016-12-23] MEDS: Gabapentin 100 MG Cap PO SCH ×2 (14:41→21:01)
[2016-12-23] MEDS: Ibuprofen 400 MG Tab PO SCH ×2 (14:41→21:02)
[2016-12-23] MEDS: Heparin Sodium 5,000 Units/ML Vial SUBCUT SCH ×2 (14:43→21:03)
--- NOTE | 2016-12-23 15:46 | PCM.HP ---
H&P History of Present Illness - General Date of Service: 12/23/16 Admit Problem/Dx: Admission Diagnosis/Problem Admission Diagnosis/Problem Weakness - History of Present Illness Initial Comments - Free Text/Narative: Mr. Knowles is an 81-year-old gentleman who has been living independently. It appears that he has been requiring more and more assistance. He has had episodes of falling. He was recently hospitalized and treated for right sided schiatica, with right lower extremity hip and knee pain. The patient was discharged with pain medication. He reported that the pain has improved but continue to follow. It appears that he is unable to do his activities of daily living without assistance. History of has mild to moderate right hip pain radiating down to the knee. This is only present with certain movements. Better with rest. Has improved in the past week. - Related Data Allergies/Adverse Reactions: Allergies Allergy/AdvReac Type Severity Reaction Status Date / Time Penicillins Allergy Rash Verified 12/23/16 12:24 Home Medications: Home Meds Diltiazem HCl [Diltiazem 24Hr Cd] 240 mg PO DAILY 10/20/13 [History] Insulin Aspart [NovoLOG] 1 unit SQ QID PRN 10/20/13 [History] Insulin Glarg,Human.Rec.Analog [Lantus] 30 units SQ BEDTIME 10/20/13 [History] Potassium Chloride [Klor-Con M20] 20 meq PO BEDTIME 10/20/13 [History] Aspirin 81 mg PO BEDTIME 11/03/15 [History] Lisinopril 20 mg PO BID 11/03/15 [History] Docusate Sodium/Sennosides [Senna Plus] 1 tab PO BEDTIME 12/17/16 [History] Sennosides [Laxative Maximum Strength] 25 mg PO BEDTIME 12/17/16 [History] Acetaminophen/oxyCODONE [Percocet 325-5 MG] 1 tab PO Q6H PRN #12 tablet [Rx] Cyclobenzaprine [Flexeril] 5 mg PO BEDTIME PRN #30 tablet 12/20/16 [Rx] Dexamethasone 4 mg PO DAILY #3 tablet 12/20/16 [Rx] Gabapentin [Neurontin] 200 mg PO TID #90 cap 12/20/16 [Rx] Hydrochlorothiazide 25 mg PO DAILY #30 tablet 12/20/16 [Rx] Ibuprofen [Motrin] 400 mg PO Q8HR #30 tablet 12/20/16 [Rx] Ketorolac [Toradol] 10 mg PO Q6H PRN 12/23/16 [History] Past Medical History HEENT History: Reports: Cataract, Hard of Hearing, Impaired Vision Cardiovascular History: Reports: High Cholesterol, Hypertension Gastrointestinal History: Reports: Chronic Constipation Genitourinary History: Reports: Prostate Disorder Musculoskeletal History: Reports: Other (See Below) Other Musculoskeletal History: left wrist drop Neurological History: Reports: Neuropathy, Diabetic, Seizure, Other (See Below) Other Neuro History: West Nile Virus Encephalitis Endocrine/Metabolic History: Reports: Diabetes, Type II Oncologic (Cancer) History: Reports: Prostate 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 Dermatologic History: Reports: Other (See Below) Other Dermatologic History: patchy skin dryness - Infectious Disease History Infectious Disease History: Reports: Chicken Pox, Measles - Past Surgical History HEENT Surgical History: Reports: Adenoidectomy, Cataract Surgery, Tonsillectomy Cardiovascular Surgical History: Reports: None GI Surgical History: Reports: Colonoscopy Male Surgical History: Reports: None Endocrine Surgical History: Reports: None Neurological Surgical History: Reports: None Dermatological Surgical History: Reports: None Social & Family History - Family History Family Medical History: Noncontributory - Tobacco Use Smoking Status *Q: Never Smoker Second Hand Smoke Exposure: No - Caffeine Use Caffeine Use: Reports: Coffee, Tea - Recreational Drug Use Recreational Drug Use: No - Living Situation & Occupation Living situation: Reports: Single H&P Review of Systems - Review of Systems: Review Of Systems: See Below General: Denies: Fever Pulmonary: Denies: Shortness of Breath Cardiovascular: Denies: Chest Pain Gastrointestinal: Denies: Abdominal Pain Genitourinary: Denies: Dysuria Exam - Exam Exam: See Below - Vital Signs Vital Signs: Last Vital Signs Temp 36.4 C 12/23/16 11:24 Pulse 98 12/23/16 11:24 Resp 20 12/23/16 11:24 BP 176/87 H 12/23/16 11:24 Pulse Ox 96 12/23/16 11:24 Weight: 83.007 kg - Exam General: Alert, Oriented Neck: Supple Lungs: Clear to Auscultation, Normal Respiratory Effort Cardiovascular: Regular Rate, Regular Rhythm GI/Abdominal Exam: Normal Bowel Sounds, Soft, Non-Tender Extremities: No Pedal Edema - Patient Data Lab Results Last 24 hrs: Laboratory Results - last 24 hr 12/23/16 Range/Units 12:17 POC Glucose 299 H (83-110) mg/dl *Q Meaningful Use (ADM) - VTE *Q VTE Criteria *Q: - Stroke *Q Stroke Criteria *Q: - AMI *Q AMI Criteria *Q: - Problem List (1) Diabetes SNOMED Code(s): 62857624 ICD Code: E11.9 - TYPE 2 DIABETES MELLITUS WITHOUT COMPLICATIONS Status: Acute Current Visit: No (2) HTN (hypertension) SNOMED Code(s): 16157443 ICD Code: I10 - ESSENTIAL (PRIMARY) HYPERTENSION Status: Acute Current Visit: No Qualifiers: (3) Sciatic nerve pain SNOMED Code(s): 23922244, 329838353 ICD Code: M54.30 - SCIATICA, UNSPECIFIED SIDE Status: Acute Current Visit : No Problem List Initiated/Reviewed/Updated: Yes Orders Last 24hrs: Active Orders 24 hr Category Date Time Status Patient Status [ADT] Routine ADT 12/23/16 12:48 Active Antiembolic Devices [RC] PER UNIT ROUTINE Care 12/23/16 12:49 Active Glucose [Blood Glucose Check, Bedside] [RC] QIDACANDBED Care 12/23/16 12:45 Active Oxygen Therapy [RC] PRN Care 12/23/16 12:48 Active Up With Assistance [RC] ASDIRECTED Care 12/23/16 12:46 Active VTE/DVT Education [RC] PER UNIT ROUTINE Care 12/23/16 12:48 Active Vital Signs [RC] Q4H Care 12/23/16 12:48 Active OT Evaluation and Treatment [CONS] Routine Cons 12/23/16 12:46 Active PT Evaluation and Treatment [CONS] Routine Cons 12/23/16 12:46 Active 2 Gram Sodium Diet [DIET] Diet 12/23/16 Dinner Active BASIC METABOLIC PANEL,BMP [CHEM] AM Lab 12/24/16 05:15 Ordered CBC WITH AUTO DIFF [HEME] AM Lab 12/24/16 05:15 Ordered Acetaminophen/oxyCODONE [Percocet 325-5 MG] Med 12/23/16 12:43 Active 1 tab PO Q6H PRN Aspirin Med 12/23/16 21:00 Active 81 mg PO BEDTIME Cyclobenzaprine [Flexeril] Med 12/23/16 12:43 Active 5 mg PO TID PRN Dexamethasone Med 12/24/16 09:00 Active 4 mg PO DAILY Diltiazem [Cardizem CD] Med 12/24/16 09:00 Active 240 mg PO DAILY Docusate Sodium/Sennosides [Senna Plus] Med 12/23/16 21:00 Active 1 tab PO BEDTIME Gabapentin [Neurontin] Med 12/23/16 14:00 Active 200 mg PO TID Heparin Sodium Med 12/23/16 14:00 Active 5,000 units SUBCUT Q8HR Hydrochlorothiazide Med 12/24/16 09:00 Active 25 mg PO DAILY Ibuprofen [Motrin] Med 12/23/16 14:00 Active 400 mg PO Q8HR Insulin Aspart [NovoLOG] Med 12/23/16 17:00 Active See Protocol SUBCUT TIDAC Insulin Detemir [Levemir] Med 12/23/16 21:00 Active 30 unit SUBCUT BEDTIME Lidocaine 5% [Lidoderm 5%] Med 12/23/16 13:15 Active 700 mg TOP DAILY Lisinopril [Prinivil] Med 12/23/16 21:00 Active 20 mg PO BID Morphine Med 12/23/16 12:46 Active 1 mg IVPUSH Q2H PRN Ondansetron [Zofran ODT] Med 12/23/16 12:46 Active 4 mg PO Q6H PRN Potassium Chloride [Klor-Con 10] Med 12/23/16 21:00 Active 20 meq PO BEDTIME Remove Patch Med 12/23/16 21:00 Active 1 ea TRDERM BEDTIME Sennosides [Laxative Maximum Strength] Med 12/23/16 21:00 Pending 25 mg PO BEDTIME Zolpidem [Ambien] Med 12/23/16 12:46 Active 5 mg PO BEDTIME PRN Antiembolic Hose [OM.PC] Per Unit Routine Oth 12/23/16 12:49 Ordered Resuscitation Status Routine Resus Stat 12/23/16 12:46 Ordered Medication Orders Aspirin (Aspirin) 81 mg PO BEDTIME [facility] Cyclobenzaprine HCl (Flexeril) 5 mg PO TID PRN PRN Reason: Pain Dexamethasone (Dexamethasone) 4 mg PO DAILY [facility] Diltiazem HCl (Cardizem Cd) 240 mg PO DAILY [facility] Gabapentin (Neurontin) 200 mg PO TID [facility] Last Admin: 12/23/16 14:41 Dose: 200 mg Heparin Sodium (Porcine) (Heparin Sodium) 5,000 units SUBCUT Q8HR [facility] Last Admin: 12/23/16 14:43 Dose: 5,000 units Hydrochlorothiazide (Hydrochlorothiazide) 25 mg PO DAILY [facility] Ibuprofen (Motrin) 400 mg PO Q8HR [facility] Last Admin: 12/23/16 14:41 Dose: 400 mg Insulin Aspart (Novolog) 0 unit SUBCUT TIDAC [facility] PRN Reason: Protocol Insulin Detemir (Levemir) 30 unit SUBCUT BEDTIME [facility] Lidocaine (Lidoderm 5%) 700 mg TOP DAILY [facility] Last Admin: 12/23/16 14:40 Dose: 700 mg Lisinopril (Prinivil) 20 mg PO BID [facility] Miscellaneous Information (Remove Patch) 1 ea TRDERM BEDTIME [facility] Morphine Sulfate (Morphine) 1 mg IVPUSH Q2H PRN PRN Reason: Pain (severe 7-10) Non-Formulary Medication (Sennosides [Laxative Maximum Strength]) 25 mg PO BEDTIME [facility] Ondansetron HCl (Zofran Odt) 4 mg PO Q6H PRN PRN Reason: nausea, able to take PO Oxycodone/Acetaminophen (Percocet 325-5 Mg) 1 tab PO Q6H PRN PRN Reason: Pain Potassium Chloride (Klor-Con 10) 20 meq PO BEDTIME [facility] Senna/Docusate Sodium (Senna Plus) 1 tab PO BEDTIME [facility] Zolpidem Tartrate (Ambien) 5 mg PO BEDTIME PRN PRN Reason: Sleep Assessment/Plan Comment:: 1. Right-sided hip pain, radiating down to the knee likely due to sciatica There was No apparent right hip fracture on x-ray CT of the pelvis showed spinal stenosis at L3/L4 and L4/L5 levels, no acute fracture Continue to treat with physical therapy, occupational therapy. contiue dexamethasone, Neurontin, motrin, Flexeril use prn percocet use heat and cold therapy. 2. Hypertension Treat with lisinopril, Cardizem, hydrochlorothiazide 3. Diabetes Treat with Levemir and short-acting insulin combination. 4. Consult social work to evaluate for discharge plan likely to a jail
[2016-12-23] MEDS: Insulin Aspart 100 Units/ML 3 ML Pen SUBCUT SCH (17:13)
[2016-12-23] MEDS ORDERED: Potassium Chloride 10 MEQ Tab.ER PO SCH (21:00)
[2016-12-23] MEDS: Lisinopril 20 MG Tab PO SCH (21:00)
[2016-12-23] MEDS ORDERED: SENNOSIDES 25 MG PO SCH (21:00)
[2016-12-23] MEDS ORDERED: Insulin Detemir 100 Units/ML 3 ML Pen SUBCUT SCH (21:00)
[2016-12-23] MEDS ORDERED: Aspirin 81 MG Tab.Chew PO SCH (21:00)
[2016-12-24] MEDS: Heparin Sodium 5,000 Units/ML Vial SUBCUT SCH (05:37)
[2016-12-24] MEDS: Ibuprofen 400 MG Tab PO SCH (05:37)
[2016-12-24 06:59] LABS: CHLORIDE,CL 101 mmol/L (101-111); SODIUM,NA 140 mmol/L (135-145)
[2016-12-24 07:10] VITALS: BP 149/76
[2016-12-24] MEDS: Insulin Aspart 100 Units/ML 3 ML Pen SUBCUT SCH (07:54)
[2016-12-24] MEDS ORDERED: Potassium Chloride 10 MEQ Tab.ER PO ONE (08:23)
[2016-12-24] MEDS: Lisinopril 20 MG Tab PO SCH (08:35)
[2016-12-24] MEDS: Lidocaine 5% 700 MG Patch TOP SCH (08:35)
[2016-12-24] MEDS: Gabapentin 100 MG Cap PO SCH (08:36)
[2016-12-24] MEDS ORDERED: Dexamethasone 4 MG Tab PO SCH (09:00)
[2016-12-24] MEDS ORDERED: Diltiazem 240 MG Cap.CD PO SCH (09:00)
[2016-12-24] MEDS ORDERED: Hydrochlorothiazide 25 MG Tab PO SCH (09:00)
--- NOTE | 2016-12-24 09:02 | PCM.DCSUM1 ---
Discharge Summary - Hospital Course Free Text/Narrative:: Mr. Knowles is an 81-year-old gentleman who has been living independently. It appears that he has been requiring more and more assistance. He has had episodes of falling. He was recently hospitalized and treated for right sided sciatica, with right lower extremity hip and knee pain. The patient was readmitted after he was noted that he can not do ADLS independently. 1. Right-sided hip pain, radiating down to the knee likely due to sciatica There was No apparent right hip fracture on x-ray CT of the pelvis showed spinal stenosis at L3/L4 and L4/L5 levels, no acute fracture Continue to treat with physical therapy, occupational therapy. continue Neurontin, motrin, Flexeril use prn percocet use heat and cold therapy. 2. Hypertension Treat with lisinopril, Cardizem, hydrochlorothiazide 3. Diabetes Treat with Levemir and short-acting insulin combination. - Discharge Data Discharge Date: 12/24/16 Discharge Disposition: Home, Self-Care 01 Condition: Good - Discharge Diagnosis/Problem(s) (1) Diabetes SNOMED Code(s): 19229069 ICD Code: E11.9 - TYPE 2 DIABETES MELLITUS WITHOUT COMPLICATIONS Status: Acute Current Visit: No (2) HTN (hypertension) SNOMED Code(s): 13867250 ICD Code: I10 - ESSENTIAL (PRIMARY) HYPERTENSION Status: Acute Current Visit: No Qualifiers: (3) Sciatic nerve pain SNOMED Code(s): 85282582, 852200425 ICD Code: M54.30 - SCIATICA, UNSPECIFIED SIDE Status: Acute Current Visit : No Qualifiers: Laterality: right Qualified Code(s): M54.31 - Sciatica, right side - Patient Summary/Data Consults: Consultations 12/23/16 12:46 OT Evaluation and Treatment [CONS] Routine PT Evaluation and Treatment [CONS] Routine - Patient Instructions Diet: Diabetic Diet Activity: As Tolerated - Discharge Plan Prescriptions/Med Rec: Acetaminophen/oxyCODONE [Percocet 325-5 MG] 1 tab PO Q6H PRN #12 tablet PRN Reason: Pain Cyclobenzaprine [Flexeril] 5 mg PO TID PRN #30 tablet PRN Reason: hip pain Insulin Aspart [NovoLOG] See Protocol SUBCUT TIDAC #1 pen Lidocaine 5% [Lidoderm 5%] 700 mg TOP DAILY #6 patch Home Medications: Home Meds Diltiazem HCl [Diltiazem 24Hr Cd] 240 mg PO DAILY 10/20/13 [History] Insulin Glarg,Human.Rec.Analog [Lantus] 30 units SQ BEDTIME 10/20/13 [History] Potassium Chloride [Klor-Con M20] 20 meq PO BEDTIME 10/20/13 [History] Aspirin 81 mg PO BEDTIME 11/03/15 [History] Lisinopril 20 mg PO BID 11/03/15 [History] Docusate Sodium/Sennosides [Senna Plus] 1 tab PO BEDTIME 12/17/16 [History] Sennosides [Laxative Maximum Strength] 25 mg PO BEDTIME 12/17/16 [History] Gabapentin [Neurontin] 200 mg PO TID #90 cap 12/20/16 [Rx] Hydrochlorothiazide 25 mg PO DAILY #30 tablet 12/20/16 [Rx] Ibuprofen [Motrin] 400 mg PO Q8HR #30 tablet 12/20/16 [Rx] Acetaminophen/oxyCODONE [Percocet 325-5 MG] 1 tab PO Q6H PRN #12 tablet [Rx] Cyclobenzaprine [Flexeril] 5 mg PO TID PRN #30 tablet 12/24/16 [Rx] Insulin Aspart [NovoLOG] See Protocol SUBCUT TIDAC #1 pen 12/24/16 [Rx] Lidocaine 5% [Lidoderm 5%] 700 mg TOP DAILY #6 patch 12/24/16 [Rx] Referrals: Jerrod Pena MD [Physician] - - Discharge Summary/Plan Comment DC Time >30 min.: Yes (doing referrals, [place] admissio forms) - General Info Date of Service: 12/24/16 Admission Dx/Problem (Free Text: Admission Diagnosis/Problem Admission Diagnosis/Problem Weakness Subjective Update: pain is controlled had low BS this morning no sob, no cp - Review of Systems General: Denies: Fever Pulmonary: Denies: Shortness of Breath Cardiovascular: Denies: Chest Pain Gastrointestinal: Denies: Abdominal Pain Genitourinary: Denies: Dysuria - Patient Data Vitals - Most Recent: Last Vital Signs Temp 36.6 C 12/24/16 07:00 Pulse 80 12/24/16 07:00 Resp 20 12/24/16 07:00 BP 149/76 H 12/24/16 08:35 Pulse Ox 99 12/24/16 07:00 Weight - Most Recent: 83.007 kg I&O - Last 24 hours: Intake & Output 12/23/16 12/24/16 12/24/16 22:59 06:59 14:59 Intake Total 380 200 Output Total 400 200 300 Balance -20 0 -300 Lab Results - Last 24 hrs: Laboratory Results - last 24 hr 12/23/16 12/23/16 12/23/16 Range/Units 12:17 17:04 20:59 WBC (5.0-10.0) 10^3/uL RBC (4.6-6.2) 10^6/uL Hgb (14.0-18.0) g/dL Hct (40.0-54.0) % MCV (80-100) fL MCH (27.0-34.0) pg MCHC (33.0-35.0) g/dL Plt Count (150-450) 10^3/uL Neut % (Auto) (42.2-75.2) % Lymph % (Auto) (20.5-50.1) % [place] % (Auto) (2-8) % Eos % (Auto) (1.0-3.0) % Baso % (Auto) (0.0-1.0) % Sodium (135-145) mmol/L Potassium (3.6-5.0) mmol/L Chloride (101-111) mmol/L Carbon Dioxide (21.0-31.0) mmol/L Anion Gap BUN (7-18) mg/dL Creatinine (0.6-1.3) mg/dL Est Cr Clr Drug Dosing mL/min Estimated GFR (MDRD) Glucose (74-105) mg/dL POC Glucose 299 H 357 H 314 H (83-110) mg/dl Calcium (8.4-10.2) mg/dl 12/24/16 12/24/16 12/24/16 Range/Units 06:09 06:09 07:35 WBC 8.2 (5.0-10.0) 10^3/uL RBC 5.22 (4.6-6.2) 10^6/uL Hgb 14.9 (14.0-18.0) g/dL Hct 43.8 (40.0-54.0) % MCV 83.9 (80-100) fL MCH 28.5 (27.0-34.0) pg MCHC 34.0 (33.0-35.0) g/dL Plt Count 175 (150-450) 10^3/uL Neut % (Auto) 60.6 (42.2-75.2) % Lymph % (Auto) 25.8 (20.5-50.1) % [place] % (Auto) 10.9 H (2-8) % Eos % (Auto) 2.7 (1.0-3.0) % Baso % (Auto) 0.0 (0.0-1.0) % Sodium 140 (135-145) mmol/L Potassium 3.3 L (3.6-5.0) mmol/L Chloride 101 (101-111) mmol/L Carbon Dioxide 31.0 (21.0-31.0) mmol/L Anion Gap 11.3 BUN 21 H (7-18) mg/dL Creatinine 0.7 (0.6-1.3) mg/dL Est Cr Clr Drug Dosing 77.36 mL/min Estimated GFR (MDRD) > 60 Glucose 65 L (74-105) mg/dL POC Glucose 47 L* (83-110) mg/dl Calcium 8.5 (8.4-10.2) mg/dl 12/24/17 Range/Units 08:31 WBC (5.0-10.0) 10^3/uL RBC (4.6-6.2) 10^6/uL Hgb (14.0-18.0) g/dL Hct (40.0-54.0) % MCV (80-100) fL MCH (27.0-34.0) pg MCHC (33.0-35.0) g/dL Plt Count (150-450) 10^3/uL Neut % (Auto) (42.2-75.2) % Lymph % (Auto) (20.5-50.1) % [place] % (Auto) (2-8) % Eos % (Auto) (1.0-3.0) % Baso % (Auto) (0.0-1.0) % Sodium (135-145) mmol/L Potassium (3.6-5.0) mmol/L Chloride (101-111) mmol/L Carbon Dioxide (21.0-31.0) mmol/L Anion Gap BUN (7-18) mg/dL Creatinine (0.6-1.3) mg/dL Est Cr Clr Drug Dosing mL/min Estimated GFR (MDRD) Glucose (74-105) mg/dL POC Glucose 149 H (83-110) mg/dl Calcium (8.4-10.2) mg/dl Med Orders - Current: Current Medications Aspirin (Aspirin) 81 mg PO BEDTIME [facility] Last Admin: 12/23/16 21:00 Dose: 81 mg Cyclobenzaprine HCl (Flexeril) 5 mg PO TID PRN PRN Reason: Pain Last Admin: 12/24/16 05:37 Dose: 5 mg Dexamethasone (Dexamethasone) 4 mg PO DAILY [facility] Last Admin: 12/24/16 08:36 Dose: 4 mg Diltiazem HCl (Cardizem Cd) 240 mg PO DAILY [facility] Last Admin: 12/24/16 08:36 Dose: 240 mg Gabapentin (Neurontin) 200 mg PO TID [facility] Last Admin: 12/24/16 08:36 Dose: 200 mg Heparin Sodium (Porcine) (Heparin Sodium) 5,000 units SUBCUT Q8HR [facility] Last Admin: 12/24/16 05:37 Dose: 5,000 units Hydrochlorothiazide (Hydrochlorothiazide) 25 mg PO DAILY [facility] Last Admin: 12/24/16 08:36 Dose: 25 mg Ibuprofen (Motrin) 400 mg PO Q8HR [facility] Last Admin: 12/24/16 05:37 Dose: 400 mg Insulin Aspart (Novolog) 0 unit SUBCUT TIDAC [facility] PRN Reason: Protocol Last Admin: 12/24/16 07:54 Dose: Not Given Insulin Detemir (Levemir) 30 unit SUBCUT BEDTIME [facility] Last Admin: 12/23/16 21:01 Dose: 30 units Lidocaine (Lidoderm 5%) 700 mg TOP DAILY [facility] Last Admin: 12/24/16 08:35 Dose: 700 mg Lisinopril (Prinivil) 20 mg PO BID [facility] Last Admin: 12/24/16 08:35 Dose: 20 mg Miscellaneous Information (Remove Patch) 1 ea TRDERM BEDTIME [facility] Last Admin: 12/23/16 21:02 Dose: Not Given Morphine Sulfate (Morphine) 1 mg IVPUSH Q2H PRN PRN Reason: Pain (severe 7-10) Non-Formulary Medication (Sennosides [Laxative Maximum Strength]) 25 mg PO BEDTIME [facility] Ondansetron HCl (Zofran Odt) 4 mg PO Q6H PRN PRN Reason: nausea, able to take PO Oxycodone/Acetaminophen (Percocet 325-5 Mg) 1 tab PO Q6H PRN PRN Reason: Pain Last Admin: 12/23/16 19:32 Dose: 1 tab Potassium Chloride (Klor-Con 10) 20 meq PO BEDTIME [facility] Last Admin: 12/23/16 21:00 Dose: 20 meq Senna/Docusate Sodium (Senna Plus) 1 tab PO BEDTIME [facility] Last Admin: 12/23/16 21:00 Dose: 1 tab Zolpidem Tartrate (Ambien) 5 mg PO BEDTIME PRN PRN Reason: Sleep Discontinued Medications Ketorolac Tromethamine (Toradol) 10 mg PO Q6H PRN PRN Reason: Pain Stop: 12/28/16 12:44 Potassium Chloride (Klor-Con 10) 40 meq PO ONETIME ONE Stop: 12/24/16 08:24 Last Admin: 12/24/16 08:35 Dose: 40 meq - Exam General: Reports: Alert, Oriented Neck: Reports: Supple Lungs: Reports: Clear to Auscultation Cardiovascular: Reports: Regular Rhythm GI/Abdominal Exam: Normal Bowel Sounds, Soft, Non-Tender Extremities: No Pedal Edema Skin: Reports: Warm, Dry, Intact Neurological: Reports: No New Focal Deficit Psy/Mental Status: Reports: Alert, Normal Affect, Normal Mood *Q Meaningful Use (DIS) - VTE *Q VTE Criteria *Q: - Stroke *Q Stroke Criteria *Q: - AMI *Q AMI Criteria *Q:
== END 2016-12-24 09:20 | disposition home or self-care (01) ==
LOC: DL.MS 11:05 → UNDOADMOB 11:05 → DL.MS 12:48
PROVIDERS: ADMIT Internal Medicine; ATTEND Internal Medicine
DX: M54.31 Sciatica, right side (principal); I10 Essential (primary) hypertension; E11.40 Type 2 diabetes mellitus with diabetic neuropathy, unspecified; E78.00 Pure hypercholesterolemia, unspecified; Z79.82 Long term (current) use of aspirin; Z79.4 Long term (current) use of insulin; Z79.899 Other long term (current) drug therapy; Z88.0 Allergy status to penicillin; Z98.890 Other specified postprocedural states
CPT/HCPCS: 36415; 80048; 82962; 85025; A9270; J1644; J1815; J8540; 96372; 99217; 99220; G0378; G0379

== ENCOUNTER 2017-03-17 01:38 | Emergency (ER) | payer MEDICARE, OTHER ==
[2017-03-17] MEDS ORDERED: 50% Dextrose in Water 50 ML Syringe IVPUSH ONE (01:40)
[2017-03-17] MEDS ORDERED: Diltiazem 25 MG/5 ML SDV IVPUSH ONE (01:58)
[2017-03-17] MEDS ORDERED: Ondansetron 4 MG/2 ML SDV ONE (02:06)
[2017-03-17 02:15] LABS: CHLORIDE,CL 104 mmol/L (101-111); SODIUM,NA 143 mmol/L (135-145)
[2017-03-17] MEDS ORDERED: Potassium Chloride 10 MEQ in Premix Bag 1 BAG IV ONE (02:19)
[2017-03-17] MEDS ORDERED: Sodium Chloride 0.9% 1,000 ML IV ONE (02:19)
[2017-03-17] MEDS ORDERED: Diltiazem 100 MG in Sodium Chloride 0.9% 100 ML IV SCH (03:00)
[2017-03-17 03:17] VITALS: BP 132/84
--- NOTE | 2017-03-17 03:23 | EDM.PDOC ---
ED HPI GENERAL MEDICAL PROBLEM - General Chief Complaint: Diabetic Complaint Stated Complaint: AMBULANCE Time Seen by Provider: 03/17/17 01:40 Source of Information: Reports: EMS, RN (Sudheer Fay) History Limitations: Reports: No Limitations - History of Present Illness INITIAL COMMENTS - FREE TEXT/NARRATIVE: ED via [facility] , patient is resident at [facility]. Found lying facedown on floor very sweaty, Glucose checked and 37, Glucagon given and EMS called. On arrival to ED glucose 45. Snoring respirations awakens to verbal acknowledges then drifts back to sleep. D50 with improvement. - Related Data Allergies Allergy/AdvReac Type Severity Reaction Status Date / Time Penicillins Allergy Rash Verified 03/17/17 02:57 Home Meds: Home Meds Diltiazem HCl [Diltiazem 24Hr Cd] 240 mg PO DAILY 10/20/13 [History] Insulin Glarg,Human.Rec.Analog [Lantus] 30 units SQ BEDTIME 10/20/13 [History] Potassium Chloride [Klor-Con M20] 20 meq PO BEDTIME 10/20/13 [History] Aspirin 81 mg PO BEDTIME 11/03/15 [History] Lisinopril 20 mg PO BID 11/03/15 [History] Docusate Sodium/Sennosides [Senna Plus] 1 tab PO BEDTIME 12/17/16 [History] Sennosides [Laxative Maximum Strength] 25 mg PO BEDTIME 12/17/16 [History] Gabapentin [Neurontin] 200 mg PO TID #90 cap 12/20/16 [Rx] Hydrochlorothiazide 25 mg PO DAILY #30 tablet 12/20/16 [Rx] Ibuprofen [Motrin] 400 mg PO Q8HR #30 tablet 12/20/16 [Rx] Acetaminophen/oxyCODONE [Percocet 325-5 MG] 1 tab PO Q6H PRN #12 tablet [Rx] Cyclobenzaprine [Flexeril] 5 mg PO TID PRN #30 tablet 12/24/16 [Rx] Insulin Aspart [NovoLOG] See Protocol SUBCUT TIDAC #1 pen 12/24/16 [Rx] Lidocaine 5% [Lidoderm 5%] 700 mg TOP DAILY #6 patch 12/24/16 [Rx] Past Medical History HEENT History: Reports: Cataract, Hard of Hearing, Impaired Vision Cardiovascular History: Reports: High Cholesterol, Hypertension Gastrointestinal History: Reports: Chronic Constipation Genitourinary History: Reports: Prostate Disorder Musculoskeletal History: Reports: Other (See Below) Other Musculoskeletal History: left wrist drop Neurological History: Reports: Neuropathy, Diabetic, Seizure, Other (See Below) Other Neuro History: West Nile Virus Encephalitis Psychiatric History: Reports: Other (See Below) Other Psychiatric History: dementia Endocrine/Metabolic History: Reports: Diabetes, Type II Oncologic (Cancer) History: Reports: Prostate 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 Dermatologic History: Reports: Other (See Below) Other Dermatologic History: patchy skin dryness - Infectious Disease History Infectious Disease History: Reports: Chicken Pox, Measles - Past Surgical History HEENT Surgical History: Reports: Adenoidectomy, Cataract Surgery, Tonsillectomy Cardiovascular Surgical History: Reports: None GI Surgical History: Reports: Colonoscopy Male Surgical History: Reports: None Endocrine Surgical History: Reports: None Neurological Surgical History: Reports: None Dermatological Surgical History: Reports: None Social & Family History - Family History Family Medical History: Noncontributory - Tobacco Use Smoking Status *Q: Never Smoker Second Hand Smoke Exposure: No - Caffeine Use Caffeine Use: Reports: None - Recreational Drug Use Recreational Drug Use: No - Living Situation & Occupation Living situation: Reports: Single ED ROS GENERAL - Review of Systems Review Of Systems: Unable To Obtain ED EXAM GENERAL NO PERIP PULSE - Physical Exam Exam: See Below Exam Limited By: No Limitations General Appearance: Obtunded Eye Exam: Bilateral Eye: EOMI, PERRL (2mm) Ears: Normal External Exam, Normal TMs Nose: Normal Inspection Throat/Mouth: Normal Inspection Head: Normocephalic, Other (abrasion to right cheek) Neck: Normal Inspection, Full Range of Motion Respiratory/Chest: No Respiratory Distress, Lungs Clear Cardiovascular: Tachycardia, Irregularly Irregular. No: Regular Rate, Rhythm, No Edema (1+) GI/Abdominal: Normal Bowel Sounds, Soft Back Exam: Normal Inspection Extremities: Normal Inspection, Normal Range of Motion Neurological: Disoriented, Slow to Respond, Memory Loss Recent Events Skin Exam: Warm, Dry, Wound/Incision (abrasions to bilateral knees and left cheek) EKG INTERPRETATION Rhythm: A-Fib Course - Vital Signs Last Recorded V/S: Last Vital Signs Temp 95.6 F 03/17/17 03:20 Pulse 127 H 03/17/17 03:20 Resp 18 11/21/17 03:20 BP 132/84 03/17/17 03:20 Pulse Ox 98 03/17/17 03:20 - Orders/Labs/Meds Orders: Active Orders 24 hr Category Date Time Status EKG 12 Lead [EKG Documentation Completion] [] URGENT Care 03/17/17 01:49 Active Glucose [Blood Glucose Check, Bedside] [] ONETIME Care 03/17/17 01:48 Active Glucose [Blood Glucose Check, Bedside] [] ONETIME Care 03/17/17 03:29 Active Labs: Laboratory Tests 03/17/17 03/17/17 03/17/17 Range/Units 01:42 01:43 01:43 WBC 12.6 H (5.0-10.0) 10^3/uL RBC 4.84 (4.6-6.2) 10^6/uL Hgb 14.1 (14.0-18.0) g/dL Hct 41.7 (40.0-54.0) % MCV 86.2 (80-100) fL MCH 29.1 (27.0-34.0) pg MCHC 33.8 (33.0-35.0) g/dL Plt Count 279 D (150-450) 10^3/uL Neut % (Auto) 53.9 (42.2-75.2) % Lymph % (Auto) 33.1 (20.5-50.1) % Faulk % (Auto) 9.7 H (2-8) % Eos % (Auto) 3.1 H (1.0-3.0) % Baso % (Auto) 0.2 (0.0-1.0) % PT 10.3 (9.0-12.0) SEC INR 1.0 (0.9-1.2) Sodium (135-145) mmol/L Potassium (3.6-5.0) mmol/L Chloride (101-111) mmol/L Carbon Dioxide (21.0-31.0) mmol/L Anion Gap BUN (7-18) mg/dL Creatinine (0.6-1.3) mg/dL Est Cr Clr Drug Dosing Estimated GFR (MDRD) BUN/Creatinine Ratio Glucose (74-105) mg/dL POC Glucose 45 L* (83-110) mg/dl Calcium (8.4-10.2) mg/dl Total Bilirubin (0.2-1.0) mg/dL AST (10-42) IU/L ALT (10-60) IU/L Alkaline Phosphatase (42-121) IU/L Troponin I (0.00-0.02) ng/ml Total Protein (6.7-8.2) g/dl Albumin (3.2-5.5) g/dl Globulin Albumin/Globulin Ratio 03/17/17 03/17/17 03/17/17 Range/Units 01:43 01:43 02:16 WBC (5.0-10.0) 10^3/uL RBC (4.6-6.2) 10^6/uL Hgb (14.0-18.0) g/dL Hct (40.0-54.0) % MCV (80-100) fL MCH (27.0-34.0) pg MCHC (33.0-35.0) g/dL Plt Count (150-450) 10^3/uL Neut % (Auto) (42.2-75.2) % Lymph % (Auto) (20.5-50.1) % Faulk % (Auto) (2-8) % Eos % (Auto) (1.0-3.0) % Baso % (Auto) (0.0-1.0) % PT (9.0-12.0) SEC INR (0.9-1.2) Sodium 143 (135-145) mmol/L Potassium 2.9 L (3.6-5.0) mmol/L Chloride 104 (101-111) mmol/L Carbon Dioxide 28.0 (21.0-31.0) mmol/L Anion Gap 13.9 BUN 20 H (7-18) mg/dL Creatinine 0.8 (0.6-1.3) mg/dL Est Cr Clr Drug Dosing TNP Estimated GFR (MDRD) > 60 BUN/Creatinine Ratio 25.00 Glucose 50 L (74-105) mg/dL POC Glucose 171 H (83-110) mg/dl Calcium 9.1 (8.4-10.2) mg/dl Total Bilirubin 0.3 (0.2-1.0) mg/dL AST 23 (10-42) IU/L ALT 16 (10-60) IU/L Alkaline Phosphatase 105 (42-121) IU/L Troponin I < 0.02 (0.00-0.02) ng/ml Total Protein 7.5 (6.7-8.2) g/dl Albumin 4.1 (3.2-5.5) g/dl Globulin 3.4 Albumin/Globulin Ratio 1.21 11//17 Range/Units 03:31 WBC (5.0-10.0) 10^3/uL RBC (4.6-6.2) 10^6/uL Hgb (14.0-18.0) g/dL Hct (40.0-54.0) % MCV (80-100) fL MCH (27.0-34.0) pg MCHC (33.0-35.0) g/dL Plt Count (150-450) 10^3/uL Neut % (Auto) (42.2-75.2) % Lymph % (Auto) (20.5-50.1) % Faulk % (Auto) (2-8) % Eos % (Auto) (1.0-3.0) % Baso % (Auto) (0.0-1.0) % PT (9.0-12.0) SEC INR (0.9-1.2) Sodium (135-145) mmol/L Potassium (3.6-5.0) mmol/L Chloride (101-111) mmol/L Carbon Dioxide (21.0-31.0) mmol/L Anion Gap BUN (7-18) mg/dL Creatinine (0.6-1.3) mg/dL Est Cr Clr Drug Dosing Estimated GFR (MDRD) BUN/Creatinine Ratio Glucose (74-105) mg/dL POC Glucose 155 H (83-110) mg/dl Calcium (8.4-10.2) mg/dl Total Bilirubin (0.2-1.0) mg/dL AST (10-42) IU/L ALT (10-60) IU/L Alkaline Phosphatase (42-121) IU/L Troponin I (0.00-0.02) ng/ml Total Protein (6.7-8.2) g/dl Albumin (3.2-5.5) g/dl Globulin Albumin/Globulin Ratio Meds: Medications Discontinued Medications Generic Name Dose Route Start Last Admin Trade Name Freq PRN Reason Stop Dose Admin Dextrose/Water 50 ml 03/17/17 01:40 03/17/17 01:45 Dextrose 50% In Water IVPUSH 03/17/17 01:41 50 ml ONETIME ONE Administration Diltiazem HCl 10 mg 03/17/17 01:58 03/17/17 02:20 Diltiazem IVPUSH 03/17/17 01:59 10 mg ONETIME ONE Administration Potassium Chloride 10 meq/ 100 mls @ 100 mls/hr 03/17/17 02:19 03/17/17 02:32 Premix IV 03/17/17 03:18 100 mls/hr ONETIME ONE Administration Sodium Chloride 1,000 mls @ 250 mls/hr 03/17/17 02:19 03/17/17 01:47 Normal Saline IV 03/17/17 06:18 250 mls/hr .BOLUS ONE Administration Diltiazem HCl 100 mg/ Sodium 100 mls @ 5 mls/hr 03/17/17 03:00 03/17/17 03:27 Chloride IV 10 mg/hr TITRATE JAVON 10 mls/hr Protocol Titration 5 MG/HR Ondansetron HCl Confirm 03/17/17 02:06 03/17/17 02:05 Zofran Administered 03/17/17 02:07 4 mg Dose Administration 4 mg .ROUTE .[facility] - Radiology Interpretation Free Text/Narrative:: Head CT no acute change. - Re-Assessments/Exams Free Text/Narrative Re-Assessment/Exam: 03/17/17 03:23 Patient more alert, taking with staff, able to recognize where he is at, No recall to events after eating evening snack. Monitor A-fib, improved rate control. Attempted to contact roger Hoffman. No answer. TC consult Dr. Ariela Curtis , accepting of patient for further evaluation. 03/17/17 03:28 Pt expresses desire for full code status. No prior advance directive on file. Departure - Departure Time of Disposition: 03:26 Disposition: DC/Tfer to Acute Hospital 02 Condition: Undetermined Clinical Impression: Hypoglycemia, History of West Nile virus infection, Right sided sciatica, Hypokalemia, Atrial fibrillation with RVR Diabetes Qualifiers: Diabetes mellitus type: type 2 Diabetes mellitus complication status: with unspecified complications Diabetes mellitus exterminator helper termite insulin use: without mcfp use Qualified Code(s): E11.8 - Type 2 diabetes mellitus with unspecified complications - Discharge Information Referrals: PCP,Unobtain [Primary Care Provider] - Forms: ED Department Discharge - My Orders Last 24 Hours: My Active Orders 03/17/17 01:48 Glucose [Blood Glucose Check, Bedside] [] ONETIME 03/17/17 01:49 EKG 12 Lead [EKG Documentation Completion] [RC] URGENT 03/17/17 03:29 Glucose [Blood Glucose Check, Bedside] [RC] ONETIME - Assessment/Plan Last 24 Hours: My Active Orders 03/17/17 01:48 Glucose [Blood Glucose Check, Bedside] [RC] ONETIME 03/17/17 01:49 EKG 12 Lead [EKG Documentation Completion] [RC] URGENT 03/17/17 03:29 Glucose [Blood Glucose Check, Bedside] [] ONETIME
--- NOTE | 2017-03-18 10:08 | EKG ---
03/17/2017- MARKOS GUTIÉRREZ - EKG, per my reading, shows atrial fibrillation with rapid ventricular rate at around 110. [facility] /[id number]
== END 2017-03-17 03:50 ==
LOC: DL.ED 01:38
DX: E11.649 Type 2 diabetes mellitus with hypoglycemia without coma (principal); S80.211A Abrasion, right knee, initial encounter; S00.81XA Abrasion of other part of head, initial encounter; S80.212A Abrasion, left knee, initial encounter; I48.91 Unspecified atrial fibrillation; M54.31 Sciatica, right side; E87.6 Hypokalemia; I10 Essential (primary) hypertension; E78.00 Pure hypercholesterolemia, unspecified; E11.40 Type 2 diabetes mellitus with diabetic neuropathy, unspecified; Z79.4 Long term (current) use of insulin; Z79.82 Long term (current) use of aspirin; Z79.899 Other long term (current) drug therapy; Z88.0 Allergy status to penicillin; X58.XXXA Exposure to other specified factors, initial encounter
CPT/HCPCS: 36415; 70450; 80053; 82962; 84484; 85025; 85610; 93005; 93010; 96361; 96365; 96375; 99285; J2405; J3480; J3490; J7030; J7050; J7060

== ENCOUNTER 2018-09-02 20:03 | Inpatient (IN) | payer MEDICARE, OTHER ==
[~2018-09-02 20:03] MED LIST: Ondansetron 4 MG/2 ML SDV IV ONE
--- NOTE | 2018-09-02 20:04 | EDM.PDOC ---
ED HPI GENERAL MEDICAL PROBLEM - General Chief Complaint: Neuro Symptoms/Deficits Stated Complaint: CALL IN Time Seen by Provider: 09/02/18 19:52 Source of Information: Reports: Patient History Limitations: Reports: No Limitations - History of Present Illness INITIAL COMMENTS - FREE TEXT/NARRATIVE: This 82 yo male patient reports to the ED with several episodes of syncope and near syncope. The patient reports his symptoms started yesterday with difficulties getting out of his chair due to "going out". The patient reports he started to feel nauseated yesterday. The nausea and fainting spells have continued throughout today. The patient reports that he did pass out prior to coming to the ED. The patient reports he pushed his life alert button and the neighbor came to get him up. The neighbor brought him to the ED. The patient reports his daughter is on her way to [facility]. Onset Date: 09/01/18 Duration: Constant, Getting Worse Location: Reports: Generalized Quality: Reports: Other Severity: Moderate Improves with: Reports: Rest Worsens with: Reports: Movement Context: Reports: Other Associated Symptoms: Reports: Nausea/Vomiting, Syncope - Related Data Allergies Allergy/AdvReac Type Severity Reaction Status Date / Time Penicillins Allergy Rash Verified 03/17/17 02:57 Home Meds: Home Meds Diltiazem HCl [Diltiazem 24Hr Cd] 240 mg PO DAILY 10/20/13 [History] Insulin Glarg,Human.Rec.Analog [Lantus] 30 units SQ BEDTIME 10/20/13 [History] Potassium Chloride [Klor-Con M20] 20 meq PO BEDTIME 10/20/13 [History] Aspirin 81 mg PO BEDTIME 11/03/15 [History] Lisinopril 20 mg PO BID 11/03/15 [History] Docusate Sodium/Sennosides [Senna Plus] 1 tab PO BEDTIME 12/17/16 [History] Sennosides [Laxative Maximum Strength] 25 mg PO BEDTIME 12/17/16 [History] Gabapentin [Neurontin] 200 mg PO TID #90 cap 12/20/16 [Rx] Hydrochlorothiazide 25 mg PO DAILY #30 tablet 12/20/16 [Rx] Ibuprofen [Motrin] 400 mg PO Q8HR #30 tablet 12/20/16 [Rx] Acetaminophen/oxyCODONE [Percocet 325-5 MG] 1 tab PO Q6H PRN #12 tablet [Rx] Cyclobenzaprine [Flexeril] 5 mg PO TID PRN #30 tablet 12/24/16 [Rx] Insulin Aspart [NovoLOG] See Protocol SUBCUT TIDAC #1 pen 12/24/16 [Rx] Lidocaine 5% [Lidoderm 5%] 700 mg TOP DAILY #6 patch 12/24/16 [Rx] Past Medical History HEENT History: Reports: Cataract, Hard of Hearing, Impaired Vision Cardiovascular History: Reports: High Cholesterol, Hypertension Gastrointestinal History: Reports: Chronic Constipation Genitourinary History: Reports: Prostate Disorder Musculoskeletal History: Reports: Other (See Below) Other Musculoskeletal History: left wrist drop Neurological History: Reports: Neuropathy, Diabetic, Seizure, Other (See Below) Other Neuro History: West Nile Virus Encephalitis Endocrine/Metabolic History: Reports: Diabetes, Type II Oncologic (Cancer) History: Reports: Prostate 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 Dermatologic History: Reports: Other (See Below) Other Dermatologic History: patchy skin dryness - Infectious Disease History Infectious Disease History: Reports: Chicken Pox, Measles - Past Surgical History HEENT Surgical History: Reports: Adenoidectomy, Cataract Surgery, Tonsillectomy Cardiovascular Surgical History: Reports: None GI Surgical History: Reports: Colonoscopy Male Surgical History: Reports: None Endocrine Surgical History: Reports: None Neurological Surgical History: Reports: None Dermatological Surgical History: Reports: None Social & Family History - Family History Family Medical History: Noncontributory - Caffeine Use Caffeine Use: Reports: Coffee, Tea - Living Situation & Occupation Living situation: Reports: Single ED ROS GENERAL - Review of Systems Review Of Systems: ROS reveals no pertinent complaints other than HPI. ED EXAM, GENERAL - Physical Exam Exam: See Below Exam Limited By: No Limitations General Appearance: Alert, WD/WN, Moderate Distress Eye Exam: Bilateral Eye: EOMI, Normal Inspection, PERRL Ears: Normal External Exam, Normal Canal, Hearing Grossly Normal, Normal TMs Nose: Normal Inspection, Normal Mucosa, No Blood Throat/Mouth: Normal Inspection, Normal Lips, Normal Teeth, Normal Gums, Normal Oropharynx, Normal Voice, No Airway Compromise Head: Atraumatic, Normocephalic Neck: Normal Inspection, Supple, Non-Tender, Full Range of Motion Respiratory/Chest: No Respiratory Distress, Lungs Clear, Normal Breath Sounds, No Accessory Muscle Use, Chest Non-Tender Cardiovascular: Normal Peripheral Pulses, Regular Rate, Rhythm, No Gallop, No JVD, No Murmur, No Rub GI/Abdominal: Normal Bowel Sounds, Soft, Non-Tender, No Organomegaly, No Distention, No Abnormal Bruit, No Mass (Male) Exam: Deferred Rectal (Males) Exam: Deferred Back Exam: Normal Inspection, Full Range of Motion, NT Extremities: Normal Range of Motion, Normal Capillary Refill, Pedal Edema ( bilateral (patient reports this is normal for him)) Neurological: Alert, Oriented, CN II-XII Intact, Normal Cognition, Normal Gait, Normal Reflexes, No Motor/Sensory Deficits Psychiatric: Normal Affect, Normal Mood Skin Exam: Warm, Dry, Intact, Normal Color, No Rash Lymphatic: No Adenopathy Course - Vital Signs Last Recorded V/S: Last Vital Signs Temp 37.2 C 09/02/18 19:56 Pulse 70 09/02/18 21:33 Resp 14 09/02/18 21:33 BP 152/68 H 09/02/18 21:33 Pulse Ox 97 09/02/18 21:33 - Orders/Labs/Meds Orders: Active Orders 24 hr Category Date Time Status EKG Documentation Completion [RC] URGENT Care 09/02/18 19:48 Ordered Glucose [Blood Glucose Check, Bedside] [RC] ONETIME Care 09/02/18 19:48 Ordered Labs: Laboratory Tests 09/02/18 09/02/18 09/02/18 Range/Units 19:49 19:53 19:53 WBC (5.0-10.0) 10^3/uL RBC (4.6-6.2) 10^6/uL Hgb (14.0-18.0) g/dL Hct (40.0-54.0) % MCV (80-100) fL MCH (27.0-34.0) pg MCHC (33.0-35.0) g/dL Plt Count (150-450) 10^3/uL Neut % (Auto) (42.2-75.2) % Lymph % (Auto) (20.5-50.1) % Mclennan % (Auto) (2-8) % Eos % (Auto) (1.0-3.0) % Baso % (Auto) (0.0-1.0) % Sodium 138 (135-145) mmol/L Potassium 3.4 L (3.6-5.0) mmol/L Chloride 102 (101-111) mmol/L Carbon Dioxide 25.0 (21.0-31.0) mmol/L Anion Gap 14.4 BUN 18 (7-18) mg/dL Creatinine 0.8 (0.6-1.3) mg/dL Est Cr Clr Drug Dosing TNP Estimated GFR (MDRD) > 60 BUN/Creatinine Ratio 22.50 Glucose 193 H (74-105) mg/dL POC Glucose 178 H (83-110) mg/dl Calcium 8.9 (8.4-10.2) mg/dl Total Bilirubin 0.7 (0.2-1.0) mg/dL AST 25 (10-42) IU/L ALT 16 (10-60) IU/L Alkaline Phosphatase 109 (42-121) IU/L Troponin I 0.01 (0.00-0.08) ng/mL B-Natriuretic Peptide 88 (0-100) pg/ml Total Protein 7.4 (6.7-8.2) g/dl Albumin 4.2 (3.2-5.5) g/dl Globulin 3.2 Albumin/Globulin Ratio 1.31 Urine Color (YELLOW) Urine Appearance (CLEAR) Urine pH (5.0-9.0) Ur Specific [place] (1.005-1.030) Urine Protein (NEGATIVE) Urine Glucose (UA) (NEGATIVE) Urine Ketones (NEGATIVE) Urine Occult Blood (NEGATIVE) Urine Nitrite (NEGATIVE) Urine Bilirubin (NEGATIVE) Urine Urobilinogen (0.2-1.0) mg/dL Ur Leukocyte Esterase (NEGATIVE) Urine RBC /HPF Urine WBC (0-5/HPF) /HPF Ur Epithelial Cells /HPF Amorphous Sediment (0/HPF) /HPF Urine Bacteria (0-FEW/HPF) /HPF Urine Mucus /LPF 09/02/18 09/02/18 Range/Units 19:53 20:19 WBC 8.8 (5.0-10.0) 10^3/uL RBC 5.27 (4.6-6.2) 10^6/uL Hgb 15.3 (14.0-18.0) g/dL Hct 44.6 (40.0-54.0) % MCV 84.6 (80-100) fL MCH 29.0 (27.0-34.0) pg MCHC 34.3 (33.0-35.0) g/dL Plt Count 281 (150-450) 10^3/uL Neut % (Auto) 63.3 (42.2-75.2) % Lymph % (Auto) 26.1 (20.5-50.1) % Mclennan % (Auto) 9.3 H (2-8) % Eos % (Auto) 1.1 (1.0-3.0) % Baso % (Auto) 0.2 (0.0-1.0) % Sodium (135-145) mmol/L Potassium (3.6-5.0) mmol/L Chloride (101-111) mmol/L Carbon Dioxide (21.0-31.0) mmol/L Anion Gap BUN (7-18) mg/dL Creatinine (0.6-1.3) mg/dL Est Cr Clr Drug Dosing Estimated GFR (MDRD) BUN/Creatinine Ratio Glucose (74-105) mg/dL POC Glucose (83-110) mg/dl Calcium (8.4-10.2) mg/dl Total Bilirubin (0.2-1.0) mg/dL AST (10-42) IU/L ALT (10-60) IU/L Alkaline Phosphatase (42-121) IU/L Troponin I (0.00-0.08) ng/mL B-Natriuretic Peptide (0-100) pg/ml Total Protein (6.7-8.2) g/dl Albumin (3.2-5.5) g/dl Globulin Albumin/Globulin Ratio Urine Color Yellow (YELLOW) Urine Appearance Clear (CLEAR) Urine pH 6.5 (5.0-9.0) Ur Specific [place] 1.020 (1.005-1.030) Urine Protein 30 H (NEGATIVE) Urine Glucose (UA) 500 H (NEGATIVE) Urine Ketones Negative (NEGATIVE) Urine Occult Blood Negative (NEGATIVE) Urine Nitrite Negative (NEGATIVE) Urine Bilirubin Negative (NEGATIVE) Urine Urobilinogen 0.2 (0.2-1.0) mg/dL Ur Leukocyte Esterase Negative (NEGATIVE) Urine RBC 0-5 /HPF Urine WBC 0-5 (0-5/HPF) /HPF Ur Epithelial Cells Rare /HPF Amorphous Sediment Rare (0/HPF) /HPF Urine Bacteria Rare (0-FEW/HPF) /HPF Urine Mucus Moderate H /LPF Meds: Medications Discontinued Medications Generic Name Dose Route Start Last Admin Trade Name Ralph PRN Reason Stop Dose Admin Meclizine HCl 12.5 mg 09/02/18 20:47 09/02/18 20:57 Antivert PO 09/02/18 20:48 12.5 mg ONETIME ONE Administration Ondansetron HCl 4 mg 09/02/18 20:00 09/02/18 20:10 Zofran IV 09/02/18 20:01 4 mg ONETIME ONE Administration Departure - Departure Time of Disposition: 21:41 Disposition: Admitted As Inpatient 64 Condition: Fair Clinical Impression: Vertigo - Discharge Information *PRESCRIPTION DRUG MONITORING PROGRAM REVIEWED*: Not Applicable *COPY OF PRESCRIPTION DRUG MONITORING REPORT IN PATIENT FABIOLA: Not Applicable Care Plan Goals: Discussed the history, examination, CT, x-ray, EKG and lab results with Dr. Juarez. Dr. Juarez accepted the patient for continued evaluation and further management as an inpatient at [facility]. - My Orders Last 24 Hours: My Active Orders 09/02/18 19:48 EKG Documentation Completion [RC] URGENT Glucose [Blood Glucose Check, Bedside] [RC] ONETIME - Assessment/Plan Last 24 Hours: My Active Orders 09/02/18 19:48 EKG Documentation Completion [RC] URGENT Glucose [Blood Glucose Check, Bedside] [RC] ONETIME
[2018-09-02 20:19] LABS: ANION GAP 14.4; CHLORIDE,CL 102 mmol/L (101-111); SODIUM,NA 138 mmol/L (135-145)
[2018-09-02] MEDS ORDERED: Meclizine 12.5 MG Tab PO ONE (20:47)
[2018-09-02] MEDS ORDERED: Sodium Chloride 0.9% 10 ML Syringe FLUSH PRN (21:56)
[2018-09-02] MEDS ORDERED: Acetaminophen 325 MG Tab PO PRN (21:56)
[2018-09-02] MEDS ORDERED: Zolpidem 5 MG Tab PO PRN (21:56)
[2018-09-02] MEDS ORDERED: Docusate Sodium 100 MG Cap PO SCH (22:00)
--- NOTE | 2018-09-02 22:05 | PCM.HP ---
H&P History of Present Illness - General Date of Service: 09/02/18 Admit Problem/Dx: Admission Diagnosis/Problem Admission Diagnosis/Problem Unsteady gait Source of Information: Patient - History of Present Illness Initial Comments - Free Text/Narative: 82-year-old gentleman who has been living independently. The patient has a history of paroxysmal atrial fibrillation, prior stroke with left-sided weakness, West Nile encephalitis, diabetes. The patient is not on anticoagulation for paroxysmal atrial fibrillation because of the frequent falling. The patient normally has a left hemiplegia. The patient has been experiencing increased episode of unsteadiness for about 2 days prior to this admission. His balance is worse with activity, had multiple episodes when he almost fell. It appears that there is no syncopal episode but more unsteadiness and fall. He denies associated chest pain, no palpitation, no headache. No fever. He has been experiencing increased leg swelling. He had associated nausea. No vomiting. - Related Data Allergies/Adverse Reactions: Allergies Allergy/AdvReac Type Severity Reaction Status Date / Time Penicillins Allergy Rash Verified 03/17/17 02:57 Home Medications: Home Meds Diltiazem HCl [Diltiazem 24Hr Cd] 240 mg PO DAILY 10/20/13 [History] Insulin Glarg,Human.Rec.Analog [Lantus] 30 units SQ BEDTIME 10/20/13 [History] Potassium Chloride [Klor-Con M20] 20 meq PO BEDTIME 10/20/13 [History] Aspirin 81 mg PO BEDTIME 11/03/15 [History] Lisinopril 20 mg PO BID 11/03/15 [History] Docusate Sodium/Sennosides [Senna Plus] 1 tab PO BEDTIME 12/17/16 [History] Sennosides [Laxative Maximum Strength] 25 mg PO BEDTIME 12/17/16 [History] Gabapentin [Neurontin] 200 mg PO TID #90 cap 12/20/16 [Rx] Hydrochlorothiazide 25 mg PO DAILY #30 tablet 12/20/16 [Rx] Ibuprofen [Motrin] 400 mg PO Q8HR #30 tablet 12/20/16 [Rx] Acetaminophen/oxyCODONE [Percocet 325-5 MG] 1 tab PO Q6H PRN #12 tablet [Rx] Cyclobenzaprine [Flexeril] 5 mg PO TID PRN #30 tablet 12/24/16 [Rx] Insulin Aspart [NovoLOG] See Protocol SUBCUT TIDAC #1 pen 12/24/16 [Rx] Lidocaine 5% [Lidoderm 5%] 700 mg TOP DAILY #6 patch 12/24/16 [Rx] Past Medical History HEENT History: Reports: Cataract, Hard of Hearing, Impaired Vision Cardiovascular History: Reports: High Cholesterol, Hypertension Gastrointestinal History: Reports: Chronic Constipation Genitourinary History: Reports: Prostate Disorder Musculoskeletal History: Reports: Other (See Below) Other Musculoskeletal History: left wrist drop Neurological History: Reports: Neuropathy, Diabetic, Seizure, Other (See Below) Other Neuro History: West Nile Virus Encephalitis Endocrine/Metabolic History: Reports: Diabetes, Type II Oncologic (Cancer) History: Reports: Prostate 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 Dermatologic History: Reports: Other (See Below) Other Dermatologic History: patchy skin dryness - Infectious Disease History Infectious Disease History: Reports: Chicken Pox, Measles - Past Surgical History HEENT Surgical History: Reports: Adenoidectomy, Cataract Surgery, Tonsillectomy Cardiovascular Surgical History: Reports: None GI Surgical History: Reports: Colonoscopy Male Surgical History: Reports: None Endocrine Surgical History: Reports: None Neurological Surgical History: Reports: None Dermatological Surgical History: Reports: None Social & Family History - Family History Family Medical History: Noncontributory - Tobacco Use Smoking Status *Q: Never Smoker - Caffeine Use Caffeine Use: Reports: Coffee, Tea - Recreational Drug Use Recreational Drug Use: No - Living Situation & Occupation Living situation: Reports: Single H&P Review of Systems - Review of Systems: Review Of Systems: See Below General: Denies: Fever, Chills Pulmonary: Denies: Shortness of Breath, Cough Cardiovascular: Reports: Edema. Denies: Chest Pain Gastrointestinal: Denies: Abdominal Pain Genitourinary: Denies: Dysuria Psychiatric: Denies: Confusion Neurological: Reports: Change in Speech (More slurred speech than usual according to family member.), Gait Disturbance Exam - Exam Exam: See Below - Vital Signs Vital Signs: Last Vital Signs Temp 37.2 C 09/02/18 19:56 Pulse 70 09/02/18 21:33 Resp 14 09/02/18 21:33 BP 152/68 H 09/02/18 21:33 Pulse Ox 97 09/02/18 21:33 - Exam General: Alert, Oriented Neck: Supple Lungs: Clear to Auscultation, Normal Respiratory Effort Cardiovascular: Regular Rate, Regular Rhythm GI/Abdominal Exam: Normal Bowel Sounds, Soft, Non-Tender Extremities: Pedal Edema (Bilateral 2+) Skin: Warm, Dry Neuro Extensive - Mental Status: Alert, Oriented x3, Normal Mood/Affect, Normal Cognition Neuro Extensive - Motor, Sensory, Reflexes: Abnormal Gait, Facial palsy (L), Hemeplagia (L) Psychiatric: Alert, Normal Affect, Normal Mood - Patient Data Lab Results Last 24 hrs: Laboratory Results - last 24 hr 09/02/18 09/02/18 09/02/18 Range/Units 19:49 19:53 19:53 WBC (5.0-10.0) 10^3/uL RBC (4.6-6.2) 10^6/uL Hgb (14.0-18.0) g/dL Hct (40.0-54.0) % MCV (80-100) fL MCH (27.0-34.0) pg MCHC (33.0-35.0) g/dL Plt Count (150-450) 10^3/uL Neut % (Auto) (42.2-75.2) % Lymph % (Auto) (20.5-50.1) % [place] % (Auto) (2-8) % Eos % (Auto) (1.0-3.0) % Baso % (Auto) (0.0-1.0) % Sodium 138 (135-145) mmol/L Potassium 3.4 L (3.6-5.0) mmol/L Chloride 102 (101-111) mmol/L Carbon Dioxide 25.0 (21.0-31.0) mmol/L Anion Gap 14.4 BUN 18 (7-18) mg/dL Creatinine 0.8 (0.6-1.3) mg/dL Est Cr Clr Drug Dosing TNP Estimated GFR (MDRD) > 60 BUN/Creatinine Ratio 22.50 Glucose 193 H (74-105) mg/dL POC Glucose 178 H (83-110) mg/dl Calcium 8.9 (8.4-10.2) mg/dl Total Bilirubin 0.7 (0.2-1.0) mg/dL AST 25 (10-42) IU/L ALT 16 (10-60) IU/L Alkaline Phosphatase 109 (42-121) IU/L Troponin I 0.01 (0.00-0.08) ng/mL B-Natriuretic Peptide 88 (0-100) pg/ml Total Protein 7.4 (6.7-8.2) g/dl Albumin 4.2 (3.2-5.5) g/dl Globulin 3.2 Albumin/Globulin Ratio 1.31 Urine Color (YELLOW) Urine Appearance (CLEAR) Urine pH (5.0-9.0) Ur Specific Romeo (1.005-1.030) Urine Protein (NEGATIVE) Urine Glucose (UA) (NEGATIVE) Urine Ketones (NEGATIVE) Urine Occult Blood (NEGATIVE) Urine Nitrite (NEGATIVE) Urine Bilirubin (NEGATIVE) Urine Urobilinogen (0.2-1.0) mg/dL Ur Leukocyte Esterase (NEGATIVE) Urine RBC /HPF Urine WBC (0-5/HPF) /HPF Ur Epithelial Cells /HPF Amorphous Sediment (0/HPF) /HPF Urine Bacteria (0-FEW/HPF) /HPF Urine Mucus /LPF 09/02/18 09/02/18 Range/Units 19:53 20:19 WBC 8.8 (5.0-10.0) 10^3/uL RBC 5.27 (4.6-6.2) 10^6/uL Hgb 15.3 (14.0-18.0) g/dL Hct 44.6 (40.0-54.0) % MCV 84.6 (80-100) fL MCH 29.0 (27.0-34.0) pg MCHC 34.3 (33.0-35.0) g/dL Plt Count 281 (150-450) 10^3/uL Neut % (Auto) 63.3 (42.2-75.2) % Lymph % (Auto) 26.1 (20.5-50.1) % [place] % (Auto) 9.3 H (2-8) % Eos % (Auto) 1.1 (1.0-3.0) % Baso % (Auto) 0.2 (0.0-1.0) % Sodium (135-145) mmol/L Potassium (3.6-5.0) mmol/L Chloride (101-111) mmol/L Carbon Dioxide (21.0-31.0) mmol/L Anion Gap BUN (7-18) mg/dL Creatinine (0.6-1.3) mg/dL Est Cr Clr Drug Dosing Estimated GFR (MDRD) BUN/Creatinine Ratio Glucose (74-105) mg/dL POC Glucose (83-110) mg/dl Calcium (8.4-10.2) mg/dl Total Bilirubin (0.2-1.0) mg/dL AST (10-42) IU/L ALT (10-60) IU/L Alkaline Phosphatase (42-121) IU/L Troponin I (0.00-0.08) ng/mL B-Natriuretic Peptide (0-100) pg/ml Total Protein (6.7-8.2) g/dl Albumin (3.2-5.5) g/dl Globulin Albumin/Globulin Ratio Urine Color Yellow (YELLOW) Urine Appearance Clear (CLEAR) Urine pH 6.5 (5.0-9.0) Ur Specific Romeo 1.020 (1.005-1.030) Urine Protein 30 H (NEGATIVE) Urine Glucose (UA) 500 H (NEGATIVE) Urine Ketones Negative (NEGATIVE) Urine Occult Blood Negative (NEGATIVE) Urine Nitrite Negative (NEGATIVE) Urine Bilirubin Negative (NEGATIVE) Urine Urobilinogen 0.2 (0.2-1.0) mg/dL Ur Leukocyte Esterase Negative (NEGATIVE) Urine RBC 0-5 /HPF Urine WBC 0-5 (0-5/HPF) /HPF Ur Epithelial Cells Rare /HPF Amorphous Sediment Rare (0/HPF) /HPF Urine Bacteria Rare (0-FEW/HPF) /HPF Urine Mucus Moderate H /LPF Result Diagrams: 09/02/18 19:53 09/02/18 19:53 Imaging Impressions Last 24 hrs: CT head negative per reading Chest x-ray negative per reading EKG per my reading shows sinus rhythm - Problem List (1) Diabetes SNOMED Code(s): 08582798 ICD Code: E11.9 - TYPE 2 DIABETES MELLITUS WITHOUT COMPLICATIONS Status: Acute Current Visit: No Qualifiers: Diabetes mellitus type: type 2 Diabetes mellitus termite control service representative insulin use: without termite control service representative use Diabetes mellitus complication status: with unspecified complications Qualified Code(s): E11.8 - Type 2 diabetes mellitus with unspecified complications (2) Dizziness SNOMED Code(s): 585920248, 580434660 ICD Code: R42 - DIZZINESS AND GIDDINESS Status: Acute Current Visit: No (3) HTN (hypertension) SNOMED Code(s): 25769422 ICD Code: I10 - ESSENTIAL (PRIMARY) HYPERTENSION Status: Acute Current Visit: No Qualifiers: (4) Vertigo SNOMED Code(s): 219483521 ICD Code: R42 - DIZZINESS AND GIDDINESS Status: Acute Priority: Medium Current Visit: No Problem List Initiated/Reviewed/Updated: Yes Orders Last 24hrs: Active Orders 24 hr Category Date Time Status Patient Status [ADT] Routine ADT 09/02/18 21:56 Ordered Antiembolic Devices [RC] PER UNIT ROUTINE Care 09/02/18 21:58 Ordered Blood Glucose Check, Bedside [RC] QIDACANDBED Care 09/02/18 21:56 Ordered EKG Documentation Completion [RC] URGENT Care 09/02/18 19:48 Active Glucose [Blood Glucose Check, Bedside] [RC] ONETIME Care 09/02/18 19:48 Active Oxygen Therapy [RC] PRN Care 09/02/18 21:56 Ordered Peripheral IV Care [RC] . DIRECTED Care 09/02/18 21:58 Ordered Telemetry Monitoring [Cardiac Monitoring] [RC] . Care 09/02/18 21:47 Ordered DIRECTED Up With Assistance [RC] ASDIRECTED Care 09/02/18 21:56 Ordered VTE/DVT Education [RC] PER UNIT ROUTINE Care 09/02/18 21:56 Ordered Vital Signs [RC] Q4H Care 09/02/18 21:56 Ordered OT Evaluation and Treatment [CONS] Routine Cons 09/02/18 21:48 Ordered PT Evaluation and Treatment [CONS] Routine Cons 09/02/18 21:48 Ordered Consistent Carbohydrate Diet [DIET] Diet 09/02/18 Breakfast Ordered Brain w wo Cont [MR] Routine Exams 09/02/18 21:46 Ordered BASIC METABOLIC PANEL,BMP [CHEM] AM Lab 09/03/18 05:15 Ordered CBC WITH AUTO DIFF [HEME] AM Lab 09/03/18 05:15 Ordered Acetaminophen [Tylenol] Med 09/02/18 21:56 Ordered 650 mg PO Q4H PRN Diltiazem HCl [Diltiazem 24Hr Cd] Med 09/03/18 09:00 Ordered 240 mg PO DAILY Docusate Sodium [Colace] Med 09/02/18 22:00 Ordered 100 mg PO .EVENING Furosemide [Lasix] Med 09/03/18 09:00 Ordered 20 mg PO DAILY Heparin Sodium Med 09/02/18 22:00 Ordered 5,000 units SUBCUT Q8HR Insulin Aspart [NovoLOG] Med 09/03/18 08:00 Ordered 4 unit SUBCUT TIDAC Insulin Glarg,Human.Rec.Analog [LantUS] Med 09/03/18 21:00 Ordered 30 unit SUBCUT BEDTIME Insulin Lispro [HumaLOG] Med 09/03/18 07:00 Ordered See Protocol SUBCUT ACBED Lisinopril [Prinivil] Med 09/03/18 09:00 Ordered 20 mg PO BID Meclizine [Antivert] Med 09/03/18 09:00 Ordered 12.5 mg PO TID Potassium Chloride [Klor-Con M20] Med 09/03/18 21:00 Ordered 20 meq PO BEDTIME Sodium Chloride 0.9% [Saline Flush] Med 09/02/18 21:56 Ordered 10 ml FLUSH ASDIRECTED PRN Zolpidem [Ambien] Med 09/02/18 21:56 Ordered 5 mg PO BEDTIME PRN Antiembolic Hose [OM.PC] Per Unit Routine Oth 09/02/18 21:57 Ordered Peripheral IV Insertion Adult [OM.PC] Routine Oth 09/02/18 21:56 Ordered Saline Lock Insert [OM.PC] Routine Oth 09/02/18 21:56 Ordered Resuscitation Status Routine Resus Stat 09/02/18 21:56 Ordered Medication Orders Acetaminophen (Tylenol) 650 mg PO Q4H PRN PRN Reason: Pain (Mild 1-3)/fever Docusate Sodium (Colace) 100 mg PO .EVENING JAVON Furosemide (Lasix) 20 mg PO DAILY JAVON Heparin Sodium (Porcine) (Heparin Sodium) 5,000 units SUBCUT Q8HR JAVON Insulin Glargine (Lantus) 30 unit SUBCUT BEDTIME JAVON Insulin Human Lispro (Humalog) 0 unit SUBCUT ACBED JAVON; Protocol Lisinopril (Prinivil) 20 mg PO BID JAVON Meclizine HCl (Antivert) 12.5 mg PO TID JAVON Non-Formulary Medication (Diltiazem Hcl [Diltiazem 24hr Cd]) 240 mg PO DAILY JAVON Non-Formulary Medication (Insulin Aspart [Novolog]) 4 unit SUBCUT TIDAC JAVON Non-Formulary Medication (Potassium Chloride [Klor-Con M20]) 20 meq PO BEDTIME JAVON Sodium Chloride (Saline Flush) 10 ml FLUSH ASDIRECTED PRN PRN Reason: Keep Vein Open Zolpidem Tartrate (Ambien) 5 mg PO BEDTIME PRN PRN Reason: Sleep Assessment/Plan Comment:: 82-year-old with a history of diabetes, hypertension, dyslipidemia, paroxysmal atrial fibrillation not on anticoagulation due to problem with balance. 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 Has a history of frequent episodes of imbalance and falling. The current episode might represent an acute stroke. Earlier significant nystagmus was described by the ER nursing staff that I could not reproduce now. This might represent a peripheral vertigo. Will obtain MRI of the brain. For the history of prior stroke and possible acute stroke I will increase the patient's aspirin from baby aspirin to full dose. Add Lipitor Given the frequent falling episodes and trauma risk I will not anticoagulate the patient with a history of A. fib. Unless a new stroke is proven on MRI and telemetry monitoring shows A. fib episode. We'll start meclizine Physical and occupational therapy Control diabetes, hypertension Hypertension, atrial fibrillation, paroxysmal Continue Cardizem Continue lisinopril With the significant swelling I will change the hydrochlorothiazide to Lasix Follow electrolytes and replace them as needed Will need follow-up echocardiogram Diabetes Treat with Lantus, meal time Humalog Use supplemental insulin as needed DVT prophylaxis with subcutaneous heparin
[2018-09-02] MEDS ORDERED: Potassium Chloride 10 MEQ Tab.ER PO SCH (22:15)
[2018-09-02] MEDS: Heparin Sodium 5,000 Units/ML Vial SUBCUT SCH (22:41)
[2018-09-03] MEDS: Heparin Sodium 5,000 Units/ML Vial SUBCUT SCH ×3 (05:32→21:05)
[2018-09-03 06:44] LABS: ANION GAP 14.4; CHLORIDE,CL 102 mmol/L (101-111); SODIUM,NA 138 mmol/L (135-145)
[2018-09-03] MEDS ORDERED: Aspirin 325 MG Tab PO SCH (08:00)
[2018-09-03] MEDS ORDERED: Diltiazem 120 MG Cap.CD PO SCH (09:00)
[2018-09-03] MEDS ORDERED: Lisinopril 20 MG Tab PO SCH (09:00)
[2018-09-03] MEDS: Insulin Lispro 100 Units/ML 3 ML Vial SUBCUT SCH ×7 (09:58→21:08)
[2018-09-03] MEDS: Meclizine 12.5 MG Tab PO SCH ×3 (10:00→21:06)
[2018-09-03] MEDS: Furosemide 20 MG Tab PO SCH (10:02)
[2018-09-03] MEDS ORDERED: DILTIAZEM PO SCH (10:44)
[2018-09-03] MEDS ORDERED: DILTIAZEM 240 MG PO SCH (10:46)
[2018-09-03] MEDS ORDERED: Docusate Sodium 100 MG Cap **OWN MED PO SCH (10:52)
--- NOTE | 2018-09-03 11:10 | PCM.PN ---
- General Info Date of Service: 09/03/18 Admission Dx/Problem (Free Text): Admission Diagnosis/Problem Admission Diagnosis/Problem Unsteady gait Subjective Update: Remained stable overnight. Episodes of confusion. Still unsteady gait with complains of vertigo. Remained in normal sinus rhythm overnight No associated headache. No complains of chest pain, palpitation, shortness of breath. Functional Status: Reports: Pain Controlled, Tolerating Diet - Review of Systems General: Reports: Weakness. Denies: Fever Pulmonary: Denies: Shortness of Breath Cardiovascular: Denies: Chest Pain Gastrointestinal: Denies: Abdominal Pain Neurological: Reports: Confusion, Dizziness, Difficulty Walking, Gait Disturbance Psychiatric: Reports: Confusion - Patient Data Vitals - Most Recent: Last Vital Signs Temp 36.6 C 09/03/18 08:21 Pulse 79 09/03/18 10:00 Resp 20 09/03/18 08:21 BP 161/83 H 09/03/18 10:01 Pulse Ox 98 09/03/18 08:21 Weight - Most Recent: 87.09 kg Lab Results Last 24 Hours: Laboratory Results - last 24 hr 09/02/18 09/02/18 09/02/18 Range/Units 19:49 19:53 19:53 WBC (5.0-10.0) 10^3/uL RBC (4.6-6.2) 10^6/uL Hgb (14.0-18.0) g/dL Hct (40.0-54.0) % MCV (80-100) fL MCH (27.0-34.0) pg MCHC (33.0-35.0) g/dL Plt Count (150-450) 10^3/uL Neut % (Auto) (42.2-75.2) % Lymph % (Auto) (20.5-50.1) % Carson % (Auto) (2-8) % Eos % (Auto) (1.0-3.0) % Baso % (Auto) (0.0-1.0) % Sodium 138 (135-145) mmol/L Potassium 3.4 L (3.6-5.0) mmol/L Chloride 102 (101-111) mmol/L Carbon Dioxide 25.0 (21.0-31.0) mmol/L Anion Gap 14.4 BUN 18 (7-18) mg/dL Creatinine 0.8 (0.6-1.3) mg/dL Est Cr Clr Drug Dosing TNP Estimated GFR (MDRD) > 60 BUN/Creatinine Ratio 22.50 Glucose 193 H (74-105) mg/dL POC Glucose 178 H (83-110) mg/dl Calcium 8.9 (8.4-10.2) mg/dl Total Bilirubin 0.7 (0.2-1.0) mg/dL AST 25 (10-42) IU/L ALT 16 (10-60) IU/L Alkaline Phosphatase 109 (42-121) IU/L Troponin I 0.01 (0.00-0.08) ng/mL B-Natriuretic Peptide 88 (0-100) pg/ml Total Protein 7.4 (6.7-8.2) g/dl Albumin 4.2 (3.2-5.5) g/dl Globulin 3.2 Albumin/Globulin Ratio 1.31 Urine Color (YELLOW) Urine Appearance (CLEAR) Urine pH (5.0-9.0) Ur Specific [place] (1.005-1.030) Urine Protein (NEGATIVE) Urine Glucose (UA) (NEGATIVE) Urine Ketones (NEGATIVE) Urine Occult Blood (NEGATIVE) Urine Nitrite (NEGATIVE) Urine Bilirubin (NEGATIVE) Urine Urobilinogen (0.2-1.0) mg/dL Ur Leukocyte Esterase (NEGATIVE) Urine RBC /HPF Urine WBC (0-5/HPF) /HPF Ur Epithelial Cells /HPF Amorphous Sediment (0/HPF) /HPF Urine Bacteria (0-FEW/HPF) /HPF Urine Mucus /LPF 09/02/18 09/02/18 09/02/18 Range/Units 19:53 20:19 22:50 WBC 8.8 (5.0-10.0) 10^3/uL RBC 5.27 (4.6-6.2) 10^6/uL Hgb 15.3 (14.0-18.0) g/dL Hct 44.6 (40.0-54.0) % MCV 84.6 (80-100) fL MCH 29.0 (27.0-34.0) pg MCHC 34.3 (33.0-35.0) g/dL Plt Count 281 (150-450) 10^3/uL Neut % (Auto) 63.3 (42.2-75.2) % Lymph % (Auto) 26.1 (20.5-50.1) % Carson % (Auto) 9.3 H (2-8) % Eos % (Auto) 1.1 (1.0-3.0) % Baso % (Auto) 0.2 (0.0-1.0) % Sodium (135-145) mmol/L Potassium (3.6-5.0) mmol/L Chloride (101-111) mmol/L Carbon Dioxide (21.0-31.0) mmol/L Anion Gap BUN (7-18) mg/dL Creatinine (0.6-1.3) mg/dL Est Cr Clr Drug Dosing Estimated GFR (MDRD) BUN/Creatinine Ratio Glucose (74-105) mg/dL POC Glucose 144 H (83-110) mg/dl Calcium (8.4-10.2) mg/dl Total Bilirubin (0.2-1.0) mg/dL AST (10-42) IU/L ALT (10-60) IU/L Alkaline Phosphatase (42-121) IU/L Troponin I (0.00-0.08) ng/mL B-Natriuretic Peptide (0-100) pg/ml Total Protein (6.7-8.2) g/dl Albumin (3.2-5.5) g/dl Globulin Albumin/Globulin Ratio Urine Color Yellow (YELLOW) Urine Appearance Clear (CLEAR) Urine pH 6.5 (5.0-9.0) Ur Specific [place] 1.020 (1.005-1.030) Urine Protein 30 H (NEGATIVE) Urine Glucose (UA) 500 H (NEGATIVE) Urine Ketones Negative (NEGATIVE) Urine Occult Blood Negative (NEGATIVE) Urine Nitrite Negative (NEGATIVE) Urine Bilirubin Negative (NEGATIVE) Urine Urobilinogen 0.2 (0.2-1.0) mg/dL Ur Leukocyte Esterase Negative (NEGATIVE) Urine RBC 0-5 /HPF Urine WBC 0-5 (0-5/HPF) /HPF Ur Epithelial Cells Rare /HPF Amorphous Sediment Rare (0/HPF) /HPF Urine Bacteria Rare (0-FEW/HPF) /HPF Urine Mucus Moderate H /LPF 09/03/18 09/03/18 09/03/18 Range/Units 05:30 05:30 07:50 WBC 7.7 (5.0-10.0) 10^3/uL RBC 4.69 (4.6-6.2) 10^6/uL Hgb 13.4 L D (14.0-18.0) g/dL Hct 39.5 L (40.0-54.0) % MCV 84.2 (80-100) fL MCH 28.6 (27.0-34.0) pg MCHC 33.9 (33.0-35.0) g/dL Plt Count 236 (150-450) 10^3/uL Neut % (Auto) 71.8 (42.2-75.2) % Lymph % (Auto) 18.9 L (20.5-50.1) % Carson % (Auto) 8.3 H (2-8) % Eos % (Auto) 0.7 L (1.0-3.0) % Baso % (Auto) 0.3 (0.0-1.0) % Sodium 138 (135-145) mmol/L Potassium 3.4 L (3.6-5.0) mmol/L Chloride 102 (101-111) mmol/L Carbon Dioxide 25.0 (21.0-31.0) mmol/L Anion Gap 14.4 BUN 17 (7-18) mg/dL Creatinine 0.7 (0.6-1.3) mg/dL Est Cr Clr Drug Dosing 73.44 Estimated GFR (MDRD) > 60 BUN/Creatinine Ratio Glucose 273 H (74-105) mg/dL POC Glucose 203 H (83-110) mg/dl Calcium 8.3 L (8.4-10.2) mg/dl Total Bilirubin (0.2-1.0) mg/dL AST (10-42) IU/L ALT (10-60) IU/L Alkaline Phosphatase (42-121) IU/L Troponin I (0.00-0.08) ng/mL B-Natriuretic Peptide (0-100) pg/ml Total Protein (6.7-8.2) g/dl Albumin (3.2-5.5) g/dl Globulin Albumin/Globulin Ratio Urine Color (YELLOW) Urine Appearance (CLEAR) Urine pH (5.0-9.0) Ur Specific [place] (1.005-1.030) Urine Protein (NEGATIVE) Urine Glucose (UA) (NEGATIVE) Urine Ketones (NEGATIVE) Urine Occult Blood (NEGATIVE) Urine Nitrite (NEGATIVE) Urine Bilirubin (NEGATIVE) Urine Urobilinogen (0.2-1.0) mg/dL Ur Leukocyte Esterase (NEGATIVE) Urine RBC /HPF Urine WBC (0-5/HPF) /HPF Ur Epithelial Cells /HPF Amorphous Sediment (0/HPF) /HPF Urine Bacteria (0-FEW/HPF) /HPF Urine Mucus /LPF Med Orders - Current: Current Medications Acetaminophen (Tylenol) 650 mg PO Q4H PRN PRN Reason: Pain (Mild 1-3)/fever Atorvastatin Calcium (Lipitor) 20 mg PO BEDTIME [facility] Clopidogrel Bisulfate (Plavix) 75 mg PO DAILY [facility] Furosemide (Lasix) 20 mg PO DAILY [facility] Last Admin: 09/03/18 10:02 Dose: 20 mg Heparin Sodium (Porcine) (Heparin Sodium) 5,000 units SUBCUT Q8HR [facility] Last Admin: 09/03/18 05:32 Dose: 5,000 units Insulin Glargine (Lantus) 30 unit SUBCUT BEDTIME [facility] Insulin Human Lispro (Humalog) 4 unit SUBCUT TIDAC [facility] Last Admin: 09/03/18 09:59 Dose: 4 units Insulin Human Lispro (Humalog) 0 unit SUBCUT ACBED [facility]; Protocol Last Admin: 09/03/18 09:58 Dose: 2 units Meclizine HCl (Antivert) 12.5 mg PO TID [facility] Last Admin: 09/03/18 10:00 Dose: 12.5 mg Diltiazem 240 Mg Cap (.Er Own Med) 1 each PO DAILY [facility] Potassium Chloride 20 Meq Tab.Er Own Med 1 each PO BEDTIME [facility] Lisinopril 20 Mg Tab (Own Med) 1 each PO BID [facility] Docusate Sodium 100 (Mg Cap Own Med) 1 each PO BEDTIME [facility] Potassium Chloride (Klor-Con 10) 40 meq PO ONETIME ONE Stop: 09/03/18 10:54 Sodium Chloride (Saline Flush) 10 ml FLUSH ASDIRECTED PRN PRN Reason: Keep Vein Open Zolpidem Tartrate (Ambien) 5 mg PO BEDTIME PRN PRN Reason: Sleep Discontinued Medications Aspirin (Aspirin) 325 mg PO WITHBREAKFAST [facility] Last Admin: 09/03/18 10:00 Dose: 325 mg Diltiazem HCl (Cardizem Cd) 240 mg PO DAILY [facility] Last Admin: 09/03/18 10:00 Dose: 240 mg Docusate Sodium (Colace) 100 mg PO BEDTIME [facility] Last Admin: 09/02/18 22:41 Dose: Not Given Lisinopril (Prinivil) 20 mg PO BID [facility] Last Admin: 09/03/18 10:01 Dose: 20 mg Meclizine HCl (Antivert) 12.5 mg PO ONETIME ONE Stop: 09/02/18 20:48 Last Admin: 09/02/18 20:57 Dose: 12.5 mg Ondansetron HCl (Zofran) 4 mg IV ONETIME ONE Stop: 09/02/18 20:01 Last Admin: 09/02/18 20:10 Dose: 4 mg Diltiazem 1240 Mg (Cap.Cd) 240 each PO DAILY [facility] Potassium Chloride (Klor-Con 10) 20 meq PO BEDTIME [facility] Last Admin: 09/02/18 22:41 Dose: Not Given - Exam General: Alert, Oriented Neck: Supple Lungs: Clear to Auscultation, Normal Respiratory Effort Cardiovascular: Regular Rate, Regular Rhythm GI/Abdominal Exam: Normal Bowel Sounds, Soft, Non-Tender Extremities: Pedal Edema (2+ b/l) Neurological: Other (Left facial droop, chronic left upper extremity weakness and spasticity) - Problem List & Annotations (1) Diabetes SNOMED Code(s): 50736854 Code(s): E11.9 - TYPE 2 DIABETES MELLITUS WITHOUT COMPLICATIONS Status: Acute Current Visit: No Qualifiers: Diabetes mellitus type: type 2 Diabetes mellitus half-way insulin use: without oil heaterman use Diabetes mellitus complication status: with unspecified complications Qualified Code(s): E11.8 - Type 2 diabetes mellitus with unspecified complications (2) Dizziness SNOMED Code(s): 402191655, 096391607 Code(s): R42 - DIZZINESS AND GIDDINESS Status: Acute Current Visit: No (3) HTN (hypertension) SNOMED Code(s): 16702816 Code(s): I10 - ESSENTIAL (PRIMARY) HYPERTENSION Status: Acute Current Visit: No Qualifiers: (4) Vertigo SNOMED Code(s): 674386471 Code(s): R42 - DIZZINESS AND GIDDINESS Status: Acute Priority: Medium Current Visit: No (5) Acute ischemic stroke SNOMED Code(s): 485492916, 160276079 Code(s): I63.9 - CEREBRAL INFARCTION, UNSPECIFIED Status: Acute Current Visit: Yes - Problem List Review Problem List Initiated/Reviewed/Updated: Yes - My Orders Last 24 Hours: My Active Orders 09/02/18 21:47 Telemetry Monitoring [Cardiac Monitoring] [RC] 08,20 09/02/18 21:48 OT Evaluation and Treatment [CONS] Routine PT Evaluation and Treatment [CONS] Routine 09/02/18 21:56 Patient Status [ADT] Routine Blood Glucose Check, Bedside [RC] QIDACANDBED Oxygen Therapy [RC] PRN Up With Assistance [RC] ASDIRECTED VTE/DVT Education [RC] PER UNIT ROUTINE Vital Signs [RC] Q4H Acetaminophen [Tylenol] 650 mg PO Q4H PRN Sodium Chloride 0.9% [Saline Flush] 10 ml FLUSH ASDIRECTED PRN Zolpidem [Ambien] 5 mg PO BEDTIME PRN Peripheral IV Insertion Adult [OM.PC] Routine Saline Lock Insert [OM.PC] Routine Resuscitation Status Routine 09/02/18 21:57 Antiembolic Hose [OM.PC] Per Unit Routine 09/02/18 21:58 Antiembolic Devices [RC] PER UNIT ROUTINE Peripheral IV Care [RC] . DIRECTED 09/02/18 22:00 Heparin Sodium 5,000 units SUBCUT Q8HR 09/03/18 07:00 Insulin Lispro [HumaLOG] See Protocol SUBCUT ACBED 09/03/18 08:00 Insulin Lispro [HumaLOG] 4 unit SUBCUT TIDAC 09/03/18 08:20 Brain wo Cont [MR] Routine 09/03/18 09:00 Furosemide [Lasix] 20 mg PO DAILY Meclizine [Antivert] 12.5 mg PO TID 09/03/18 10:46 Patient's Own Medication [Ptom] 1 each PO DAILY 09/03/18 10:52 Patient's Own Medication [Ptom] 1 each PO BEDTIME 09/03/18 10:53 Potassium Chloride [Klor-Con 10] 40 meq PO ONETIME ONE 09/03/18 11:00 Clopidogrel [Plavix] 75 mg PO DAILY 09/03/18 21:00 Insulin Glarg,Human.Rec.Analog [LantUS] 30 unit SUBCUT BEDTIME Patient's Own Medication [Ptom] 1 each PO BEDTIME Patient's Own Medication [Ptom] 1 each PO BID atorvaSTATin [Lipitor] 20 mg PO BEDTIME 09/04/18 05:15 BASIC METABOLIC PANEL,BMP [CHEM] AM - Plan Plan:: 82-year-old with a history of diabetes, hypertension, dyslipidemia, paroxysmal atrial fibrillation not on anticoagulation due to problem with balance. 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 Has a history of frequent episodes of imbalance and falling. Acute ischemic stroke Presented with unsteadiness, vertigo. Noted left facial droop. Was not TPA candidate due to onset, severity MRI confirmed acute right pontine lacunar infarction 4 mm The patient has a history of atrial fibrillation but remained in sinus rhythm overnight. I agreed that due to frequent falling he is not a candidate for full dose anticoagulation. I will switch from aspirin to Plavix Started Lipitor Physical and occupational therapy Control diabetes, hypertension Will need follow-up echocardiogram and neurology follow-up Hypertension, atrial fibrillation, paroxysmal Continue Cardizem Continue lisinopril With the significant swelling I have changed the hydrochlorothiazide to Lasix Replace hypokalemia Diabetes Treat with Lantus, meal time Humalog Use supplemental insulin as needed Episodes of confusion, likely dementia The patient has previously been in a fci but left against advice DVT prophylaxis with subcutaneous heparin Discussed with closest relative Yasmin [phone]
[2018-09-03] MEDS ORDERED: Potassium Chloride 20 MEQ Tab.ER **OWN MED PO ONE (11:15)
[2018-09-03] MEDS: Clopidogrel 75 MG Tab PO SCH (12:19)
[2018-09-03] MEDS ORDERED: Lisinopril 20 MG Tab **OWN MED PO SCH (21:00)
[2018-09-03] MEDS ORDERED: Potassium Chloride 20 MEQ Tab.ER **OWN MED PO SCH (21:00)
[2018-09-03] MEDS: Docusate Sodium 100 MG Cap PO SCH (21:06)
[2018-09-03] MEDS: Potassium Chloride 10 MEQ Tab.ER PO SCH (21:06)
[2018-09-03] MEDS: atorvaSTATin 20 MG Tab PO SCH (21:07)
[2018-09-03] MEDS: Insulin Glarg,Human.Rec.Analog 100 UNIT/ML ML SUBCUT SCH (21:07)
[2018-09-03] MEDS: Lisinopril 20 MG Tab PO SCH (21:07)
[2018-09-04] MEDS: Heparin Sodium 5,000 Units/ML Vial SUBCUT SCH ×3 (05:37→21:12)
[2018-09-04 07:09] LABS: ANION GAP 13.4; CHLORIDE,CL 107 mmol/L (101-111); SODIUM,NA 141 mmol/L (135-145)
[2018-09-04] MEDS: Insulin Lispro 100 Units/ML 3 ML Vial SUBCUT SCH ×7 (08:39→20:00)
[2018-09-04] MEDS: Furosemide 20 MG Tab PO SCH (08:46)
[2018-09-04] MEDS: Clopidogrel 75 MG Tab PO SCH (08:46)
[2018-09-04] MEDS: Diltiazem 240 MG Cap.ER PO SCH (08:46)
[2018-09-04] MEDS: Lisinopril 20 MG Tab PO SCH ×2 (08:47→20:01)
[2018-09-04] MEDS: Meclizine 12.5 MG Tab PO SCH ×3 (08:47→20:03)
[2018-09-04] MEDS ORDERED: Potassium Chloride 10 MEQ Tab.ER PO ONE (11:04)
--- NOTE | 2018-09-04 11:09 | PCM.PN ---
- General Info Date of Service: 09/04/18 Admission Dx/Problem (Free Text): Admission Diagnosis/Problem Admission Diagnosis/Problem Unsteady gait Subjective Update: Remained stable overnight. Episodes of confusion. Still unsteady gait but has less complains of vertigo. No associated headache. No complains of chest pain, palpitation, shortness of breath. He does not want to consider going to assisted living or fci. Functional Status: Reports: Tolerating Diet - Review of Systems General: Denies: Fever Pulmonary: Denies: Shortness of Breath Cardiovascular: Denies: Chest Pain Gastrointestinal: Denies: Abdominal Pain - Patient Data Vitals - Most Recent: Last Vital Signs Temp 37.1 C 09/04/18 08:13 Pulse 84 09/04/18 08:13 Resp 20 09/04/18 08:13 BP 129/92 H 09/04/18 08:47 Pulse Ox 98 09/04/18 08:13 Weight - Most Recent: 87.09 kg I&O - Last 24 Hours: Intake & Output 09/03/18 09/04/18 09/04/18 22:59 06:59 14:59 Intake Total 30 Output Total 265 Balance 30 -265 Lab Results Last 24 Hours: Laboratory Results - last 24 hr 09/03/18 09/03/18 09/03/18 Range/Units 11:53 16:57 20:11 Sodium (135-145) mmol/L Potassium (3.6-5.0) mmol/L Chloride (101-111) mmol/L Carbon Dioxide (21.0-31.0) mmol/L Anion Gap BUN (7-18) mg/dL Creatinine (0.6-1.3) mg/dL Est Cr Clr Drug Dosing mL/min Estimated GFR (MDRD) Glucose (74-105) mg/dL POC Glucose 255 H 227 H 329 H (83-110) mg/dl Calcium (8.4-10.2) mg/dl 09/04/18 09/04/18 Range/Units 06:08 07:37 Sodium 141 (135-145) mmol/L Potassium 3.4 L (3.6-5.0) mmol/L Chloride 107 (101-111) mmol/L Carbon Dioxide 24.0 (21.0-31.0) mmol/L Anion Gap 13.4 BUN 19 H (7-18) mg/dL Creatinine 0.7 (0.6-1.3) mg/dL Est Cr Clr Drug Dosing 73.44 mL/min Estimated GFR (MDRD) > 60 Glucose 191 H (74-105) mg/dL POC Glucose 162 H (83-110) mg/dl Calcium 8.1 L (8.4-10.2) mg/dl Med Orders - Current: Current Medications Acetaminophen (Tylenol) 650 mg PO Q4H PRN PRN Reason: Pain (Mild 1-3)/fever Atorvastatin Calcium (Lipitor) 20 mg PO BEDTIME [facility] Last Admin: 09/03/18 21:07 Dose: 20 mg Clopidogrel Bisulfate (Plavix) 75 mg PO DAILY [facility] Last Admin: 09/04/18 08:46 Dose: 75 mg Diltiazem HCl (Dilacor Xr) 240 mg PO DAILY [facility] Last Admin: 09/04/18 08:46 Dose: 240 mg Docusate Sodium (Colace) 100 mg PO BEDTIME [facility] Last Admin: 09/03/18 21:06 Dose: 100 mg Furosemide (Lasix) 20 mg PO DAILY [facility] Last Admin: 09/04/18 08:46 Dose: 20 mg Heparin Sodium (Porcine) (Heparin Sodium) 5,000 units SUBCUT Q8HR [facility] Last Admin: 09/04/18 05:37 Dose: 5,000 units Insulin Glargine (Lantus) 30 unit SUBCUT BEDTIME [facility] Last Admin: 09/03/18 21:07 Dose: 30 units Insulin Human Lispro (Humalog) 4 unit SUBCUT TIDAC [facility] Last Admin: 09/04/18 08:39 Dose: 4 units Insulin Human Lispro (Humalog) 0 unit SUBCUT ACBED [facility]; Protocol Last Admin: 09/04/18 08:39 Dose: 1 units Lisinopril (Prinivil) 20 mg PO BID [facility] Last Admin: 09/04/18 08:47 Dose: 20 mg Meclizine HCl (Antivert) 12.5 mg PO TID [facility] Last Admin: 09/04/18 08:47 Dose: 12.5 mg Potassium Chloride (Klor-Con 10) 20 meq PO BEDTIME [facility] Last Admin: 09/03/18 21:06 Dose: 20 meq Potassium Chloride (Klor-Con 10) 40 meq PO ONETIME ONE Stop: 09/04/18 11:05 Sodium Chloride (Saline Flush) 10 ml FLUSH ASDIRECTED PRN PRN Reason: Keep Vein Open Zolpidem Tartrate (Ambien) 5 mg PO BEDTIME PRN PRN Reason: Sleep Discontinued Medications Aspirin (Aspirin) 325 mg PO WITHBREAKFAST [facility] Last Admin: 09/03/18 10:00 Dose: 325 mg Diltiazem HCl (Cardizem Cd) 240 mg PO DAILY [facility] Last Admin: 09/03/18 10:00 Dose: 240 mg Docusate Sodium (Colace) 100 mg PO BEDTIME [facility] Last Admin: 09/02/18 22:41 Dose: Not Given Lisinopril (Prinivil) 20 mg PO BID [facility] Last Admin: 09/03/18 10:01 Dose: 20 mg Meclizine HCl (Antivert) 12.5 mg PO ONETIME ONE Stop: 09/02/18 20:48 Last Admin: 09/02/18 20:57 Dose: 12.5 mg Ondansetron HCl (Zofran) 4 mg IV ONETIME ONE Stop: 09/02/18 20:01 Last Admin: 09/02/18 20:10 Dose: 4 mg Diltiazem 1240 Mg (Cap.Cd) 240 each PO DAILY [facility] Diltiazem 240 Mg Cap (.Er Own Med) 1 each PO DAILY [facility] Potassium Chloride 20 Meq Tab.Er Own Med 1 each PO BEDTIME [facility] Lisinopril 20 Mg Tab (Own Med) 1 each PO BID [facility] Docusate Sodium 100 (Mg Cap Own Med) 1 each PO BEDTIME [facility] Potassium Chloride 20 Meq Tab.Er Own Med 2 each PO ONETIME ONE Stop: 09/03/18 11:16 Last Admin: 09/03/18 11:14 Dose: 2 each Potassium Chloride (Klor-Con 10) 20 meq PO BEDTIME [facility] Last Admin: 09/02/18 22:41 Dose: Not Given - Exam General: Alert, Oriented (With episodic confusion) Lungs: Clear to Auscultation, Normal Respiratory Effort Cardiovascular: Regular Rate, Regular Rhythm GI/Abdominal Exam: Normal Bowel Sounds, Soft, Non-Tender Extremities: No Pedal Edema Skin: Warm, Dry Neurological: Other (Left facial droop, left upper extremity spastic paresis) Psy/Mental Status: Alert, Normal Affect, Normal Mood - Problem List & Annotations (1) Diabetes SNOMED Code(s): 13556396 Code(s): E11.9 - TYPE 2 DIABETES MELLITUS WITHOUT COMPLICATIONS Status: Acute Current Visit: No Qualifiers: Diabetes mellitus type: type 2 Diabetes mellitus bed bug exterminator insulin use: without nursing home use Diabetes mellitus complication status: with unspecified complications Qualified Code(s): E11.8 - Type 2 diabetes mellitus with unspecified complications (2) Dizziness SNOMED Code(s): 854793910, 592234098 Code(s): R42 - DIZZINESS AND GIDDINESS Status: Acute Current Visit: No (3) HTN (hypertension) SNOMED Code(s): 68762897 Code(s): I10 - ESSENTIAL (PRIMARY) HYPERTENSION Status: Acute Current Visit: No Qualifiers: (4) Vertigo SNOMED Code(s): 754419876 Code(s): R42 - DIZZINESS AND GIDDINESS Status: Acute Priority: Medium Current Visit: No (5) Acute ischemic stroke SNOMED Code(s): 112225869, 773526871 Code(s): I63.9 - CEREBRAL INFARCTION, UNSPECIFIED Status: Acute Current Visit: Yes - Problem List Review Problem List Initiated/Reviewed/Updated: Yes - My Orders Last 24 Hours: My Active Orders 09/03/18 11:00 Clopidogrel [Plavix] 75 mg PO DAILY 09/03/18 11:20 Admission Status [Patient Status] [ADT] Routine 09/03/18 21:00 Docusate Sodium [Colace] 100 mg PO BEDTIME Insulin Glarg,Human.Rec.Analog [LantUS] 30 unit SUBCUT BEDTIME Lisinopril [Prinivil] 20 mg PO BID Potassium Chloride [Klor-Con 10] 20 meq PO BEDTIME atorvaSTATin [Lipitor] 20 mg PO BEDTIME 09/04/18 09:00 Diltiazem [Dilacor XR] 240 mg PO DAILY 09/04/18 11:04 Potassium Chloride [Klor-Con 10] 40 meq PO ONETIME ONE 09/05/18 05:15 BASIC METABOLIC PANEL,BMP [CHEM] AM - Plan Plan:: 82-year-old with a history of diabetes, hypertension, dyslipidemia, paroxysmal atrial fibrillation not on anticoagulation due to problem with balance. 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 Has a history of frequent episodes of imbalance and falling. Acute ischemic stroke Presented with unsteadiness, vertigo. Noted left facial droop. Was not TPA candidate due to onset, severity MRI confirmed acute right pontine lacunar infarction 4 mm The patient has a history of atrial fibrillation but remained in sinus rhythm overnight. I agree that due to frequent falling he is not a candidate for full dose anticoagulation. I have switched from aspirin to Plavix Started Lipitor cont Physical and occupational therapy Control diabetes, hypertension Will need follow-up echocardiogram and neurology follow-up Hypertension, atrial fibrillation, paroxysmal Continue Cardizem Continue lisinopril With the significant swelling I have changed the hydrochlorothiazide to Lasix Replace hypokalemia and recheck in the morning Diabetes Treat with Lantus, meal time Humalog Use supplemental insulin as needed Episodes of confusion, likely dementia The patient has previously been in a fci but left against advice Concern for appropriate decision making. Recommended to memory and decision making capability evaluation. DVT prophylaxis with subcutaneous heparin Discussed with closest relative Yasmin
[2018-09-04] MEDS: Docusate Sodium 100 MG Cap PO SCH (20:00)
[2018-09-04] MEDS: Insulin Glarg,Human.Rec.Analog 100 UNIT/ML ML SUBCUT SCH (20:00)
[2018-09-04] MEDS: Potassium Chloride 10 MEQ Tab.ER PO SCH (20:00)
[2018-09-04] MEDS: atorvaSTATin 20 MG Tab PO SCH (20:01)
[2018-09-04] MEDS: Polyethylene Glycol 3350 Powder 17 GM Packet PO SCH (20:03)
[2018-09-05] MEDS: Heparin Sodium 5,000 Units/ML Vial SUBCUT SCH ×3 (06:02→23:00)
[2018-09-05 07:06] LABS: ANION GAP 12.7; CHLORIDE,CL 108 mmol/L (101-111); SODIUM,NA 142 mmol/L (135-145)
[2018-09-05] MEDS: Insulin Lispro 100 Units/ML 3 ML Vial SUBCUT SCH ×7 (09:15→22:28)
[2018-09-05] MEDS: Furosemide 20 MG Tab PO SCH (09:18)
[2018-09-05] MEDS: Clopidogrel 75 MG Tab PO SCH (09:18)
[2018-09-05] MEDS: Lisinopril 20 MG Tab PO SCH ×2 (09:18→22:38)
[2018-09-05] MEDS: Meclizine 12.5 MG Tab PO SCH ×3 (09:18→22:40)
[2018-09-05] MEDS: Diltiazem 240 MG Cap.ER PO SCH (09:18)
--- NOTE | 2018-09-05 12:28 | PCM.PN ---
- General Info Date of Service: 09/05/18 Admission Dx/Problem (Free Text): Admission Diagnosis/Problem Admission Diagnosis/Problem Unsteady gait Subjective Update: Remained stable overnight. Still unsteady gait but has no complains of vertigo. No associated headache. No complains of chest pain, palpitation, shortness of breath. - Review of Systems General: Reports: Weakness. Denies: Fever Pulmonary: Denies: Shortness of Breath Cardiovascular: Denies: Chest Pain Gastrointestinal: Denies: Abdominal Pain Genitourinary: Denies: Dysuria - Patient Data Vitals - Most Recent: Last Vital Signs Temp 36.9 C 09/05/18 07:55 Pulse 69 09/05/18 07:55 Resp 20 09/05/18 07:55 BP 164/80 H 09/05/18 09:18 Pulse Ox 99 09/05/18 07:55 Weight - Most Recent: 87.09 kg I&O - Last 24 Hours: Intake & Output 09/04/18 09/05/18 09/05/18 22:59 06:59 14:59 Intake Total 300 200 Output Total 245 200 Balance 300 -245 0 Lab Results Last 24 Hours: Laboratory Results - last 24 hr 09/04/18 09/04/18 09/05/18 Range/Units 16:51 19:57 06:06 Sodium 142 (135-145) mmol/L Potassium 3.7 (3.6-5.0) mmol/L Chloride 108 (101-111) mmol/L Carbon Dioxide 25.0 (21.0-31.0) mmol/L Anion Gap 12.7 BUN 18 (7-18) mg/dL Creatinine 0.6 (0.6-1.3) mg/dL Est Cr Clr Drug Dosing 85.69 mL/min Estimated GFR (MDRD) > 60 Glucose 123 H (74-105) mg/dL POC Glucose 312 H 331 H (83-110) mg/dl Calcium 8.2 L (8.4-10.2) mg/dl 09/05/18 09/05/18 Range/Units 07:48 11:21 Sodium (135-145) mmol/L Potassium (3.6-5.0) mmol/L Chloride (101-111) mmol/L Carbon Dioxide (21.0-31.0) mmol/L Anion Gap BUN (7-18) mg/dL Creatinine (0.6-1.3) mg/dL Est Cr Clr Drug Dosing mL/min Estimated GFR (MDRD) Glucose (74-105) mg/dL POC Glucose 79 L 211 H (83-110) mg/dl Calcium (8.4-10.2) mg/dl Med Orders - Current: Current Medications Acetaminophen (Tylenol) 650 mg PO Q4H PRN PRN Reason: Pain (Mild 1-3)/fever Last Admin: 09/04/18 20:03 Dose: 650 mg Atorvastatin Calcium (Lipitor) 20 mg PO BEDTIME [facility] Last Admin: 09/04/18 20:01 Dose: 20 mg Clopidogrel Bisulfate (Plavix) 75 mg PO DAILY [facility] Last Admin: 09/05/18 09:18 Dose: 75 mg Diltiazem HCl (Dilacor Xr) 240 mg PO DAILY [facility] Last Admin: 09/05/18 09:18 Dose: 240 mg Docusate Sodium (Colace) 100 mg PO BEDTIME [facility] Last Admin: 09/04/18 20:00 Dose: 100 mg Furosemide (Lasix) 20 mg PO DAILY [facility] Last Admin: 09/05/18 09:18 Dose: 20 mg Heparin Sodium (Porcine) (Heparin Sodium) 5,000 units SUBCUT Q8HR [facility] Last Admin: 09/05/18 06:02 Dose: 5,000 units Insulin Glargine (Lantus) 30 unit SUBCUT BEDTIME [facility] Last Admin: 09/04/18 20:00 Dose: 30 units Insulin Human Lispro (Humalog) 4 unit SUBCUT TIDAC [facility] Last Admin: 09/05/18 09:16 Dose: 4 units Insulin Human Lispro (Humalog) 0 unit SUBCUT ACBED [facility]; Protocol Last Admin: 09/05/18 09:15 Dose: Not Given Labetalol HCl (Normodyne) 100 mg PO BID [facility] Lisinopril (Prinivil) 20 mg PO BID [facility] Last Admin: 09/05/18 09:18 Dose: 20 mg Meclizine HCl (Antivert) 12.5 mg PO TID [facility] Last Admin: 09/05/18 09:18 Dose: 12.5 mg Polyethylene Glycol (Miralax) 17 gm PO BEDTIME [facility] Last Admin: 09/04/18 20:03 Dose: 17 gm Potassium Chloride (Klor-Con 10) 20 meq PO BEDTIME [facility] Last Admin: 09/04/18 20:00 Dose: 20 meq Sodium Chloride (Saline Flush) 10 ml FLUSH ASDIRECTED PRN PRN Reason: Keep Vein Open Zolpidem Tartrate (Ambien) 5 mg PO BEDTIME PRN PRN Reason: Sleep Last Admin: 09/04/18 20:01 Dose: 5 mg Discontinued Medications Aspirin (Aspirin) 325 mg PO WITHBREAKFAST [facility] Last Admin: 09/03/18 10:00 Dose: 325 mg Diltiazem HCl (Cardizem Cd) 240 mg PO DAILY [facility] Last Admin: 09/03/18 10:00 Dose: 240 mg Docusate Sodium (Colace) 100 mg PO BEDTIME [facility] Last Admin: 09/02/18 22:41 Dose: Not Given Lisinopril (Prinivil) 20 mg PO BID [facility] Last Admin: 09/03/18 10:01 Dose: 20 mg Meclizine HCl (Antivert) 12.5 mg PO ONETIME ONE Stop: 09/02/18 20:48 Last Admin: 09/02/18 20:57 Dose: 12.5 mg Ondansetron HCl (Zofran) 4 mg IV ONETIME ONE Stop: 09/02/18 20:01 Last Admin: 09/02/18 20:10 Dose: 4 mg Diltiazem 1240 Mg (Cap.Cd) 240 each PO DAILY [facility] Diltiazem 240 Mg Cap (.Er Own Med) 1 each PO DAILY [facility] Potassium Chloride 20 Meq Tab.Er Own Med 1 each PO BEDTIME [facility] Lisinopril 20 Mg Tab (Own Med) 1 each PO BID [facility] Docusate Sodium 100 (Mg Cap Own Med) 1 each PO BEDTIME [facility] Potassium Chloride 20 Meq Tab.Er Own Med 2 each PO ONETIME ONE Stop: 09/03/18 11:16 Last Admin: 09/03/18 11:14 Dose: 2 each Potassium Chloride (Klor-Con 10) 20 meq PO BEDTIME [facility] Last Admin: 09/02/18 22:41 Dose: Not Given Potassium Chloride (Klor-Con 10) 40 meq PO ONETIME ONE Stop: 09/04/18 11:05 Last Admin: 09/04/18 12:16 Dose: 40 meq - Exam General: Alert, Oriented Neck: Supple Lungs: Clear to Auscultation, Normal Respiratory Effort Cardiovascular: Regular Rate, Regular Rhythm GI/Abdominal Exam: Normal Bowel Sounds, Soft, Non-Tender Extremities: Pedal Edema Neurological: Other (Left facial droop, left upper extremity spasticity) - Problem List & Annotations (1) Diabetes SNOMED Code(s): 57229377 Code(s): E11.9 - TYPE 2 DIABETES MELLITUS WITHOUT COMPLICATIONS Status: Acute Current Visit: No Qualifiers: Diabetes mellitus type: type 2 Diabetes mellitus fci insulin use: without joint terminal attack controller use Diabetes mellitus complication status: with unspecified complications Qualified Code(s): E11.8 - Type 2 diabetes mellitus with unspecified complications (2) Dizziness SNOMED Code(s): 450211023, 001769235 Code(s): R42 - DIZZINESS AND GIDDINESS Status: Acute Current Visit: No (3) HTN (hypertension) SNOMED Code(s): 84704492 Code(s): I10 - ESSENTIAL (PRIMARY) HYPERTENSION Status: Acute Current Visit: No Qualifiers: (4) Vertigo SNOMED Code(s): 964871107 Code(s): R42 - DIZZINESS AND GIDDINESS Status: Acute Priority: Medium Current Visit: No (5) Acute ischemic stroke SNOMED Code(s): 347549683, 556828066 Code(s): I63.9 - CEREBRAL INFARCTION, UNSPECIFIED Status: Acute Current Visit: Yes - Problem List Review Problem List Initiated/Reviewed/Updated: Yes - My Orders Last 24 Hours: My Active Orders 09/04/18 21:00 Polyethylene Glycol 3350 [MiraLAX] 17 gm PO BEDTIME 09/05/18 12:30 Labetalol [Normodyne] 100 mg PO BID - Plan Plan:: 82-year-old with a history of diabetes, hypertension, dyslipidemia, paroxysmal atrial fibrillation not on anticoagulation due to problem with balance. 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 Has a history of frequent episodes of imbalance and falling. Acute ischemic stroke Presented with unsteadiness, vertigo. Noted left facial droop. Was not TPA candidate due to time of onset, severity MRI confirmed acute right pontine lacunar infarction 4 mm The patient has a history of atrial fibrillation but remained in sinus rhythm overnight. I agree that due to frequent falling he is not a candidate for full dose anticoagulation. I have switched from aspirin to Plavix Started Lipitor cont Physical and occupational therapy Control diabetes, hypertension Will need follow-up echocardiogram and neurology follow-up Hypertension, history of paroxysmal atrial fibrillation now appears in sinus rhythm Blood pressure is uncontrolled Continue Cardizem Continue lisinopril Add labetalol With the significant swelling I have changed the hydrochlorothiazide to Lasix Replace hypokalemia and recheck in the morning Diabetes Treat with Lantus, meal time Humalog Use supplemental insulin as needed Episodes of confusion, likely dementia The patient has previously been in a correction but left against advice Concern for appropriate decision making. Recommended to memory and decision making capability evaluation. DVT prophylaxis with subcutaneous heparin
[2018-09-05] MEDS: Labetalol 100 MG Tab PO SCH ×2 (12:41→22:39)
[2018-09-05] MEDS: Insulin Glarg,Human.Rec.Analog 100 UNIT/ML ML SUBCUT SCH (22:31)
[2018-09-05] MEDS: Polyethylene Glycol 3350 Powder 17 GM Packet PO SCH (22:35)
[2018-09-05] MEDS: Potassium Chloride 10 MEQ Tab.ER PO SCH (22:35)
[2018-09-05] MEDS: Docusate Sodium 100 MG Cap PO SCH (22:35)
[2018-09-05] MEDS: atorvaSTATin 20 MG Tab PO SCH (22:36)
[2018-09-06] MEDS: Heparin Sodium 5,000 Units/ML Vial SUBCUT SCH ×4 (06:16→21:30)
[2018-09-06] MEDS: Insulin Lispro 100 Units/ML 3 ML Vial SUBCUT SCH ×7 (08:29→20:56)
[2018-09-06] MEDS: Meclizine 12.5 MG Tab PO SCH ×3 (08:30→20:43)
[2018-09-06] MEDS: Clopidogrel 75 MG Tab PO SCH (08:30)
[2018-09-06] MEDS: Lisinopril 20 MG Tab PO SCH ×2 (08:31→20:43)
[2018-09-06] MEDS: Labetalol 100 MG Tab PO SCH ×2 (08:31→20:42)
[2018-09-06] MEDS: Diltiazem 240 MG Cap.ER PO SCH (08:31)
[2018-09-06] MEDS: Furosemide 20 MG Tab PO SCH (08:32)
--- NOTE | 2018-09-06 10:17 | PCM.PN ---
- General Info Date of Service: 09/06/18 Subjective Update: Remained stable. continued to have unsteady gait with weakness. No associated headache. No complains of chest pain, palpitation, shortness of breath. no swallowing difficulties - Review of Systems General: Reports: Weakness. Denies: Fever Pulmonary: Denies: Shortness of Breath Cardiovascular: Denies: Chest Pain Neurological: Reports: Confusion - Patient Data Vitals - Most Recent: Last Vital Signs Temp 36.9 C 09/06/18 08:20 Pulse 71 09/06/18 08:31 Resp 20 09/06/18 08:20 BP 154/70 H 09/06/18 08:31 Pulse Ox 99 09/06/18 08:20 Weight - Most Recent: 87.09 kg I&O - Last 24 Hours: Intake & Output 09/05/18 09/06/18 09/06/18 22:59 06:59 14:59 Intake Total 590 600 Output Total 200 75 Balance 390 525 Lab Results Last 24 Hours: Laboratory Results - last 24 hr 09/05/18 09/05/18 09/05/18 Range/Units 11:21 16:43 21:37 POC Glucose 211 H 256 H 275 H (83-110) mg/dl 09/06/18 Range/Units 08:00 POC Glucose 225 H (83-110) mg/dl Med Orders - Current: Current Medications Acetaminophen (Tylenol) 650 mg PO Q4H PRN PRN Reason: Pain (Mild 1-3)/fever Last Admin: 09/04/18 20:03 Dose: 650 mg Atorvastatin Calcium (Lipitor) 20 mg PO BEDTIME [facility] Last Admin: 09/05/18 22:36 Dose: 20 mg Clopidogrel Bisulfate (Plavix) 75 mg PO DAILY [facility] Last Admin: 09/06/18 08:30 Dose: 75 mg Diltiazem HCl (Dilacor Xr) 240 mg PO DAILY [facility] Last Admin: 09/06/18 08:31 Dose: 240 mg Docusate Sodium (Colace) 100 mg PO BEDTIME [facility] Last Admin: 09/05/18 22:35 Dose: 100 mg Furosemide (Lasix) 20 mg PO DAILY [facility] Last Admin: 09/06/18 08:32 Dose: 20 mg Heparin Sodium (Porcine) (Heparin Sodium) 5,000 units SUBCUT Q8HR [facility] Last Admin: 09/06/18 06:16 Dose: 5,000 units Insulin Glargine (Lantus) 30 unit SUBCUT BEDTIME [facility] Last Admin: 09/05/18 22:31 Dose: 30 units Insulin Human Lispro (Humalog) 4 unit SUBCUT TIDAC [facility] Last Admin: 09/06/18 08:29 Dose: 4 units Insulin Human Lispro (Humalog) 0 unit SUBCUT ACBED [facility]; Protocol Last Admin: 09/06/18 08:29 Dose: 2 units Labetalol HCl (Normodyne) 100 mg PO BID [facility] Last Admin: 09/06/18 08:31 Dose: 100 mg Lisinopril (Prinivil) 20 mg PO BID [facility] Last Admin: 09/06/18 08:31 Dose: 20 mg Meclizine HCl (Antivert) 12.5 mg PO TID [facility] Last Admin: 09/06/18 08:30 Dose: 12.5 mg Polyethylene Glycol (Miralax) 17 gm PO BEDTIME [facility] Last Admin: 09/05/18 22:35 Dose: 17 gm Potassium Chloride (Klor-Con 10) 20 meq PO BEDTIME [facility] Last Admin: 09/05/18 22:35 Dose: 20 meq Sodium Chloride (Saline Flush) 10 ml FLUSH ASDIRECTED PRN PRN Reason: Keep Vein Open Last Admin: 09/05/18 22:10 Dose: 10 ml Discontinued Medications Aspirin (Aspirin) 325 mg PO WITHBREAKFAST [facility] Last Admin: 09/03/18 10:00 Dose: 325 mg Diltiazem HCl (Cardizem Cd) 240 mg PO DAILY [facility] Last Admin: 09/03/18 10:00 Dose: 240 mg Docusate Sodium (Colace) 100 mg PO BEDTIME [facility] Last Admin: 09/02/18 22:41 Dose: Not Given Lisinopril (Prinivil) 20 mg PO BID [facility] Last Admin: 09/03/18 10:01 Dose: 20 mg Meclizine HCl (Antivert) 12.5 mg PO ONETIME ONE Stop: 09/02/18 20:48 Last Admin: 09/02/18 20:57 Dose: 12.5 mg Ondansetron HCl (Zofran) 4 mg IV ONETIME ONE Stop: 09/02/18 20:01 Last Admin: 09/02/18 20:10 Dose: 4 mg Diltiazem 1240 Mg (Cap.Cd) 240 each PO DAILY [facility] Diltiazem 240 Mg Cap (.Er Own Med) 1 each PO DAILY [facility] Potassium Chloride 20 Meq Tab.Er Own Med 1 each PO BEDTIME [facility] Lisinopril 20 Mg Tab (Own Med) 1 each PO BID [facility] Docusate Sodium 100 (Mg Cap Own Med) 1 each PO BEDTIME [facility] Potassium Chloride 20 Meq Tab.Er Own Med 2 each PO ONETIME ONE Stop: 09/03/18 11:16 Last Admin: 09/03/18 11:14 Dose: 2 each Potassium Chloride (Klor-Con 10) 20 meq PO BEDTIME [facility] Last Admin: 09/02/18 22:41 Dose: Not Given Potassium Chloride (Klor-Con 10) 40 meq PO ONETIME ONE Stop: 09/04/18 11:05 Last Admin: 09/04/18 12:16 Dose: 40 meq Zolpidem Tartrate (Ambien) 5 mg PO BEDTIME PRN PRN Reason: Sleep Last Admin: 09/04/18 20:01 Dose: 5 mg - Exam General: Alert, Oriented Neck: Supple Lungs: Clear to Auscultation, Normal Respiratory Effort Cardiovascular: Regular Rate, Regular Rhythm GI/Abdominal Exam: Normal Bowel Sounds, Soft, Non-Tender Extremities: Pedal Edema (trace) Neurological: Other (left facial droop, left UE stiffness) Psy/Mental Status: Alert, Normal Affect - Problem List & Annotations (1) Diabetes SNOMED Code(s): 84192115 Code(s): E11.9 - TYPE 2 DIABETES MELLITUS WITHOUT COMPLICATIONS Status: Acute Current Visit: No Qualifiers: Diabetes mellitus type: type 2 Diabetes mellitus longterm insulin use: without exterminator termite use Diabetes mellitus complication status: with unspecified complications Qualified Code(s): E11.8 - Type 2 diabetes mellitus with unspecified complications (2) Dizziness SNOMED Code(s): 958552049, 175886500 Code(s): R42 - DIZZINESS AND GIDDINESS Status: Acute Current Visit: No (3) HTN (hypertension) SNOMED Code(s): 51759813 Code(s): I10 - ESSENTIAL (PRIMARY) HYPERTENSION Status: Acute Current Visit: No Qualifiers: (4) Vertigo SNOMED Code(s): 409524079 Code(s): R42 - DIZZINESS AND GIDDINESS Status: Acute Priority: Medium Current Visit: No (5) Acute ischemic stroke SNOMED Code(s): 262644167, 725172104 Code(s): I63.9 - CEREBRAL INFARCTION, UNSPECIFIED Status: Acute Current Visit: Yes - Problem List Review Problem List Initiated/Reviewed/Updated: Yes - My Orders Last 24 Hours: My Active Orders 09/05/18 12:30 Labetalol [Normodyne] 100 mg PO BID - Plan Plan:: 82-year-old with a history of diabetes, hypertension, dyslipidemia, paroxysmal atrial fibrillation not on anticoagulation due to problem with balance. 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 Has a history of frequent episodes of imbalance and falling. Acute ischemic stroke Presented with unsteadiness, vertigo. Noted left facial droop. Was not TPA candidate due to time of onset, severity MRI confirmed acute right pontine lacunar infarction 4 mm The patient has a history of atrial fibrillation but remained in sinus rhythm overnight. I agree that due to frequent falling he is not a candidate for full dose anticoagulation. I have switched from aspirin to Plavix Started Lipitor cont Physical and occupational therapy Control diabetes, hypertension Will need follow-up echocardiogram and neurology follow-up discussed discharge plans - possible to [place] Hypertension, history of paroxysmal atrial fibrillation now appears in sinus rhythm Blood pressure is uncontrolled Continue Cardizem Continue lisinopril increase labetalol With the swelling I have changed the hydrochlorothiazide to Lasix swelling improved Diabetes Treat with Lantus, meal time Humalog Use supplemental insulin as needed Episodes of confusion, likely dementia The patient has previously been in a longterm but left against advice Concern for appropriate decision making. Recommended to memory and decision making capability evaluation. DVT prophylaxis with subcutaneous heparin
[2018-09-06] MEDS: Polyethylene Glycol 3350 Powder 17 GM Packet PO SCH (20:40)
[2018-09-06] MEDS: Potassium Chloride 10 MEQ Tab.ER PO SCH (20:42)
[2018-09-06] MEDS: atorvaSTATin 20 MG Tab PO SCH (20:43)
[2018-09-06] MEDS: Docusate Sodium 100 MG Cap PO SCH (20:43)
[2018-09-06] MEDS: Insulin Glarg,Human.Rec.Analog 100 UNIT/ML ML SUBCUT SCH (20:54)
[2018-09-07] MEDS: Heparin Sodium 5,000 Units/ML Vial SUBCUT SCH ×3 (05:59→23:42)
[2018-09-07 07:06] LABS: ANION GAP 13.9; CHLORIDE,CL 108 mmol/L (101-111); SODIUM,NA 141 mmol/L (135-145)
[2018-09-07] MEDS: Labetalol 100 MG Tab PO SCH ×2 (08:55→21:35)
[2018-09-07] MEDS: Meclizine 12.5 MG Tab PO SCH (08:56)
[2018-09-07] MEDS: Furosemide 20 MG Tab PO SCH (08:57)
[2018-09-07] MEDS: Diltiazem 240 MG Cap.ER PO SCH (08:57)
[2018-09-07] MEDS: Clopidogrel 75 MG Tab PO SCH (08:57)
[2018-09-07] MEDS: Lisinopril 20 MG Tab PO SCH ×2 (08:57→21:35)
[2018-09-07] MEDS: Insulin Lispro 100 Units/ML 3 ML Vial SUBCUT SCH ×7 (08:59→21:30)
--- NOTE | 2018-09-07 13:33 | PCM.PN ---
- General Info Date of Service: 09/07/18 Admission Dx/Problem (Free Text): Admission Diagnosis/Problem Admission Diagnosis/Problem Unsteady gait Subjective Update: continued to have unsteady gait with weakness. needs 1-2 person assistance to get up No associated headache. No complains of chest pain, palpitation, shortness of breath. no swallowing difficulties - Review of Systems General: Reports: Weakness. Denies: Fever Pulmonary: Denies: Shortness of Breath Cardiovascular: Denies: Chest Pain, Edema Genitourinary: Denies: Dysuria Neurological: Reports: Confusion - Patient Data Vitals - Most Recent: Last Vital Signs Temp 36.8 C 09/07/18 12:00 Pulse 78 09/07/18 12:00 Resp 20 09/07/18 12:00 BP 148/71 H 09/07/18 12:00 Pulse Ox 98 09/07/18 12:00 Weight - Most Recent: 87.09 kg I&O - Last 24 Hours: Intake & Output 09/06/18 09/07/18 09/07/18 22:59 06:59 14:59 Intake Total 220 350 Output Total 500 Balance 220 -150 Lab Results Last 24 Hours: Laboratory Results - last 24 hr 09/06/18 09/06/18 09/07/18 Range/Units 16:13 20:52 06:05 Sodium 141 (135-145) mmol/L Potassium 3.9 (3.6-5.0) mmol/L Chloride 108 (101-111) mmol/L Carbon Dioxide 23.0 (21.0-31.0) mmol/L Anion Gap 13.9 BUN 22 H (7-18) mg/dL Creatinine 0.7 (0.6-1.3) mg/dL Est Cr Clr Drug Dosing 73.44 mL/min Estimated GFR (MDRD) > 60 Glucose 265 H (74-105) mg/dL POC Glucose 301 H 293 H (83-110) mg/dl Calcium 8.3 L (8.4-10.2) mg/dl 09/07/18 09/07/18 Range/Units 07:51 11:20 Sodium (135-145) mmol/L Potassium (3.6-5.0) mmol/L Chloride (101-111) mmol/L Carbon Dioxide (21.0-31.0) mmol/L Anion Gap BUN (7-18) mg/dL Creatinine (0.6-1.3) mg/dL Est Cr Clr Drug Dosing mL/min Estimated GFR (MDRD) Glucose (74-105) mg/dL POC Glucose 223 H 276 H (83-110) mg/dl Calcium (8.4-10.2) mg/dl Med Orders - Current: Current Medications Acetaminophen (Tylenol) 650 mg PO Q4H PRN PRN Reason: Pain (Mild 1-3)/fever Last Admin: 09/04/18 20:03 Dose: 650 mg Atorvastatin Calcium (Lipitor) 20 mg PO BEDTIME [facility] Last Admin: 09/06/18 20:43 Dose: 20 mg Clopidogrel Bisulfate (Plavix) 75 mg PO DAILY [facility] Last Admin: 09/07/18 08:57 Dose: 75 mg Diltiazem HCl (Dilacor Xr) 240 mg PO DAILY [facility] Last Admin: 09/07/18 08:57 Dose: 240 mg Docusate Sodium (Colace) 100 mg PO BEDTIME [facility] Last Admin: 09/06/18 20:43 Dose: 100 mg Furosemide (Lasix) 20 mg PO DAILY [facility] Last Admin: 09/07/18 08:57 Dose: 20 mg Heparin Sodium (Porcine) (Heparin Sodium) 5,000 units SUBCUT Q8HR [facility] Last Admin: 09/07/18 05:59 Dose: 5,000 units Insulin Human Lispro (Humalog) 4 unit SUBCUT TIDAC [facility] Last Admin: 09/07/18 12:35 Dose: 4 units Insulin Human Lispro (Humalog) 0 unit SUBCUT ACBED [facility]; Protocol Last Admin: 09/07/18 12:36 Dose: 3 units Labetalol HCl (Normodyne) 200 mg PO BID [facility] Last Admin: 09/07/18 08:55 Dose: 200 mg Lisinopril (Prinivil) 20 mg PO BID [facility] Last Admin: 09/07/18 08:57 Dose: 20 mg Polyethylene Glycol (Miralax) 17 gm PO BEDTIME [facility] Last Admin: 09/06/18 20:40 Dose: 17 gm Potassium Chloride (Klor-Con 10) 20 meq PO BEDTIME [facility] Last Admin: 09/06/18 20:42 Dose: 20 meq Sodium Chloride (Saline Flush) 10 ml FLUSH ASDIRECTED PRN PRN Reason: Keep Vein Open Last Admin: 09/05/18 22:10 Dose: 10 ml Discontinued Medications Aspirin (Aspirin) 325 mg PO WITHBREAKFAST [facility] Last Admin: 09/03/18 10:00 Dose: 325 mg Diltiazem HCl (Cardizem Cd) 240 mg PO DAILY [facility] Last Admin: 09/03/18 10:00 Dose: 240 mg Docusate Sodium (Colace) 100 mg PO BEDTIME [facility] Last Admin: 09/02/18 22:41 Dose: Not Given Insulin Glargine (Lantus) 30 unit SUBCUT BEDTIME [facility] Last Admin: 09/06/18 20:54 Dose: 30 units Labetalol HCl (Normodyne) 100 mg PO BID [facility] Last Admin: 09/06/18 08:31 Dose: 100 mg Lisinopril (Prinivil) 20 mg PO BID [facility] Last Admin: 09/03/18 10:01 Dose: 20 mg Meclizine HCl (Antivert) 12.5 mg PO ONETIME ONE Stop: 09/02/18 20:48 Last Admin: 09/02/18 20:57 Dose: 12.5 mg Meclizine HCl (Antivert) 12.5 mg PO TID [facility] Last Admin: 09/07/18 08:56 Dose: 12.5 mg Ondansetron HCl (Zofran) 4 mg IV ONETIME ONE Stop: 09/02/18 20:01 Last Admin: 09/02/18 20:10 Dose: 4 mg Diltiazem 1240 Mg (Cap.Cd) 240 each PO DAILY [facility] Diltiazem 240 Mg Cap (.Er Own Med) 1 each PO DAILY [facility] Potassium Chloride 20 Meq Tab.Er Own Med 1 each PO BEDTIME [facility] Lisinopril 20 Mg Tab (Own Med) 1 each PO BID [facility] Docusate Sodium 100 (Mg Cap Own Med) 1 each PO BEDTIME [facility] Potassium Chloride 20 Meq Tab.Er Own Med 2 each PO ONETIME ONE Stop: 09/03/18 11:16 Last Admin: 09/03/18 11:14 Dose: 2 each Potassium Chloride (Klor-Con 10) 20 meq PO BEDTIME [facility] Last Admin: 09/02/18 22:41 Dose: Not Given Potassium Chloride (Klor-Con 10) 40 meq PO ONETIME ONE Stop: 09/04/18 11:05 Last Admin: 09/04/18 12:16 Dose: 40 meq Zolpidem Tartrate (Ambien) 5 mg PO BEDTIME PRN PRN Reason: Sleep Last Admin: 09/04/18 20:01 Dose: 5 mg - Exam General: Alert, Oriented Neck: Supple Lungs: Clear to Auscultation, Normal Respiratory Effort Cardiovascular: Regular Rate, Regular Rhythm Extremities: No Pedal Edema Skin: Warm, Dry Neurological: Other (left facial droop, left UE weakness,) Psy/Mental Status: Alert - Problem List & Annotations (1) Diabetes SNOMED Code(s): 47374596 Code(s): E11.9 - TYPE 2 DIABETES MELLITUS WITHOUT COMPLICATIONS Status: Acute Current Visit: No Qualifiers: Diabetes mellitus type: type 2 Diabetes mellitus terminal carman insulin use: without usp use Diabetes mellitus complication status: with unspecified complications Qualified Code(s): E11.8 - Type 2 diabetes mellitus with unspecified complications (2) Dizziness SNOMED Code(s): 102674411, 034456753 Code(s): R42 - DIZZINESS AND GIDDINESS Status: Acute Current Visit: No (3) HTN (hypertension) SNOMED Code(s): 40319782 Code(s): I10 - ESSENTIAL (PRIMARY) HYPERTENSION Status: Acute Current Visit: No Qualifiers: (4) Vertigo SNOMED Code(s): 341203939 Code(s): R42 - DIZZINESS AND GIDDINESS Status: Acute Priority: Medium Current Visit: No (5) Acute ischemic stroke SNOMED Code(s): 200189971, 857027877 Code(s): I63.9 - CEREBRAL INFARCTION, UNSPECIFIED Status: Acute Current Visit: Yes - Problem List Review Problem List Initiated/Reviewed/Updated: Yes - My Orders Last 24 Hours: My Active Orders 09/06/18 21:00 Labetalol [Normodyne] 200 mg PO BID 09/07/18 21:00 Insulin Glarg,Human.Rec.Analog [LantUS] 35 unit SUBCUT BEDTIME - Plan Plan:: 82-year-old with a history of diabetes, hypertension, dyslipidemia, paroxysmal atrial fibrillation not on anticoagulation due to problem with balance. 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 Has a history of frequent episodes of imbalance and falling. Acute ischemic stroke Presented with unsteadiness, vertigo. Noted left facial droop. Was not TPA candidate due to time of onset, severity MRI confirmed acute right pontine lacunar infarction 4 mm The patient has a history of atrial fibrillation but remained in sinus rhythm overnight. I agree that due to frequent falling he is not a candidate for full dose anticoagulation. I have switched from aspirin to Plavix Started Lipitor cont Physical and occupational therapy stop meclizine Control diabetes, hypertension Will need follow-up echocardiogram and neurology follow-up plan for discharge to [place] Hypertension, history of paroxysmal atrial fibrillation now appears in sinus rhythm Blood pressure is uncontrolled Continue Cardizem Continue lisinopril increased labetalol With the swelling I have changed the hydrochlorothiazide to Lasix swelling improved renal fx. remained stable Diabetes uncontrolled increase Lantus, cont meal time Humalog Use supplemental insulin as needed Episodes of confusion, likely dementia The patient has previously been in a long-term but left against advice Concern for appropriate decision making. Recommended to memory and decision making capability evaluation. DVT prophylaxis with subcutaneous heparin
--- NOTE | 2018-09-07 14:07 | PCM.DCSUM1 ---
Discharge Summary - Hospital Course Free Text/Narrative:: 82-year-old with a history of diabetes, hypertension, dyslipidemia, paroxysmal atrial fibrillation not on anticoagulation due to problem with balance. 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 Has a history of frequent episodes of imbalance and falling. Acute ischemic stroke Presented with unsteadiness, vertigo. Noted left facial droop. Was not TPA candidate due to time of onset, severity MRI confirmed acute right pontine lacunar infarction 4 mm The patient has a history of atrial fibrillation but remained in sinus rhythm. has not been on anticoagulation in the past. I agree that due to frequent falling he is not a candidate for full dose anticoagulation. - This can be reevaluated if he remains in [place] supervised. I have switched from aspirin to Plavix Started Lipitor cont Physical and occupational therapy in [place] Control diabetes, hypertension consider echocardiogram, carotid us and neurology follow-up as out pt Hypertension, history of paroxysmal atrial fibrillation now appears in sinus rhythm Blood pressure is uncontrolled Continue Cardizem Continue lisinopril started labetalol With the LE swelling I have changed the hydrochlorothiazide to Lasix swelling improved renal fx. remained stable Diabetes treat with Lantus, cont meal time Humalog Use supplemental insulin as needed Episodes of confusion, likely dementia Concern for appropriate decision making. Recommended to memory and decision making capability evaluation as out pt. Diagnosis: Stroke: Yes Modified Eddy Scale: Mod.Sev.Disability ;Unable to Walk/Attend Bodily Needs W/ O Assistance Modified Eddy Scale Score: 4 - Discharge Data Discharge Date: 09/08/18 Discharge Disposition: DC/Tfer to SNF 03 Condition: Good - Discharge Diagnosis/Problem(s) (1) Diabetes SNOMED Code(s): 00463950 ICD Code: E11.9 - TYPE 2 DIABETES MELLITUS WITHOUT COMPLICATIONS Status: Acute Current Visit: No Qualifiers: Diabetes mellitus type: type 2 Diabetes mellitus residential insulin use: without residential use Diabetes mellitus complication status: with unspecified complications Qualified Code(s): E11.8 - Type 2 diabetes mellitus with unspecified complications (2) Dizziness SNOMED Code(s): 321350226, 052834078 ICD Code: R42 - DIZZINESS AND GIDDINESS Status: Acute Current Visit: No (3) HTN (hypertension) SNOMED Code(s): 26135705 ICD Code: I10 - ESSENTIAL (PRIMARY) HYPERTENSION Status: Acute Current Visit: No Qualifiers: (4) Vertigo SNOMED Code(s): 724710113 ICD Code: R42 - DIZZINESS AND GIDDINESS Status: Acute Priority: Medium Current Visit: No (5) Acute ischemic stroke SNOMED Code(s): 525545880, 077083480 ICD Code: I63.9 - CEREBRAL INFARCTION, UNSPECIFIED Status: Acute Current Visit: Yes (6) CVA (cerebral vascular accident) SNOMED Code(s): 546245357 ICD Code: I63.9 - CEREBRAL INFARCTION, UNSPECIFIED Status: Acute Current Visit: Yes - Patient Summary/Data Consults: Consultations 09/02/18 21:48 OT Evaluation and Treatment [CONS] Routine PT Evaluation and Treatment [CONS] Routine - Patient Instructions Diet: Usual Diet as Tolerated Activity: As Tolerated - Discharge Plan *PRESCRIPTION DRUG MONITORING PROGRAM REVIEWED*: Not Applicable *COPY OF PRESCRIPTION DRUG MONITORING REPORT IN PATIENT FABIOLA: Not Applicable Prescriptions/Med Rec: atorvaSTATin [Lipitor] 20 mg PO BEDTIME #30 tablet Clopidogrel [Plavix] 75 mg PO DAILY #30 tablet Labetalol [Normodyne] 200 mg PO BID #60 tablet Home Medications: Home Meds Diltiazem HCl [Diltiazem 24Hr Cd] 240 mg PO DAILY 10/20/13 [History] Insulin Glarg,Human.Rec.Analog [Lantus] 26 units SQ BEDTIME 10/20/13 [History] Potassium Chloride [Klor-Con M20] 20 meq PO BEDTIME 10/20/13 [History] Lisinopril 20 mg PO BID 11/03/15 [History] Docusate Sodium/Sennosides [Senna Plus] 1 tab PO BEDTIME 12/17/16 [History] Sennosides [Laxative Maximum Strength] 25 mg PO BEDTIME 12/17/16 [History] Ibuprofen [Motrin] 400 mg PO Q8HR #30 tablet 12/20/16 [Rx] Insulin Aspart [NovoLOG] See Protocol SUBCUT TIDAC #1 pen 12/24/16 [Rx] Insulin Lispro [Humalog] 4 units SQ ACBREAKFAST 09/02/18 [History] Insulin Lispro [Humalog] 10 units SQ ACDINNER 09/02/18 [History] Insulin Lispro [Humalog] 12 units SQ ACLUNCH 09/02/18 [History] Acetaminophen [Tylenol] 650 mg PO Q4H PRN tablet 09/07/18 [Rx] Clopidogrel [Plavix] 75 mg PO DAILY #30 tablet 09/07/18 [Rx] Labetalol [Normodyne] 200 mg PO BID #60 tablet 09/07/18 [Rx] atorvaSTATin [Lipitor] 20 mg PO BEDTIME #30 tablet 09/07/18 [Rx] Oxygen Therapy Mode: Room Air - Discharge Summary/Plan Comment DC Time >30 min.: Yes (DC referral documents) - General Info Date of Service: 09/08/18 Subjective Update: remained stable overnight Functional Status: Reports: Pain Controlled, Tolerating Diet - Review of Systems General: Reports: Weakness. Denies: Fever Pulmonary: Denies: Shortness of Breath Cardiovascular: Denies: Chest Pain Gastrointestinal: Denies: Abdominal Pain Genitourinary: Denies: Dysuria Neurological: Reports: Confusion Psychiatric: Denies: Hallucinations - Patient Data Vitals - Most Recent: Last Vital Signs Temp 36.8 C 09/07/18 12:00 Pulse 78 09/07/18 12:00 Resp 20 09/07/18 12:00 BP 148/71 H 09/07/18 12:00 Pulse Ox 98 09/07/18 12:00 Weight - Most Recent: 87.09 kg I&O - Last 24 hours: Intake & Output 09/06/18 09/07/18 09/07/18 22:59 06:59 14:59 Intake Total 220 350 Output Total 500 Balance 220 -150 Lab Results - Last 24 hrs: Laboratory Results - last 24 hr 09/06/18 09/06/18 09/07/18 Range/Units 16:13 20:52 06:05 Sodium 141 (135-145) mmol/L Potassium 3.9 (3.6-5.0) mmol/L Chloride 108 (101-111) mmol/L Carbon Dioxide 23.0 (21.0-31.0) mmol/L Anion Gap 13.9 BUN 22 H (7-18) mg/dL Creatinine 0.7 (0.6-1.3) mg/dL Est Cr Clr Drug Dosing 73.44 mL/min Estimated GFR (MDRD) > 60 Glucose 265 H (74-105) mg/dL POC Glucose 301 H 293 H (83-110) mg/dl Calcium 8.3 L (8.4-10.2) mg/dl 09/07/18 09/07/18 Range/Units 07:51 11:20 Sodium (135-145) mmol/L Potassium (3.6-5.0) mmol/L Chloride (101-111) mmol/L Carbon Dioxide (21.0-31.0) mmol/L Anion Gap BUN (7-18) mg/dL Creatinine (0.6-1.3) mg/dL Est Cr Clr Drug Dosing mL/min Estimated GFR (MDRD) Glucose (74-105) mg/dL POC Glucose 223 H 276 H (83-110) mg/dl Calcium (8.4-10.2) mg/dl Med Orders - Current: Current Medications Acetaminophen (Tylenol) 650 mg PO Q4H PRN PRN Reason: Pain (Mild 1-3)/fever Last Admin: 09/04/18 20:03 Dose: 650 mg Atorvastatin Calcium (Lipitor) 20 mg PO BEDTIME [facility] Last Admin: 09/06/18 20:43 Dose: 20 mg Clopidogrel Bisulfate (Plavix) 75 mg PO DAILY [facility] Last Admin: 09/07/18 08:57 Dose: 75 mg Diltiazem HCl (Dilacor Xr) 240 mg PO DAILY [facility] Last Admin: 09/07/18 08:57 Dose: 240 mg Docusate Sodium (Colace) 100 mg PO BEDTIME [facility] Last Admin: 09/06/18 20:43 Dose: 100 mg Furosemide (Lasix) 20 mg PO DAILY [facility] Last Admin: 09/07/18 08:57 Dose: 20 mg Heparin Sodium (Porcine) (Heparin Sodium) 5,000 units SUBCUT Q8HR [facility] Last Admin: 09/07/18 05:59 Dose: 5,000 units Insulin Glargine (Lantus) 35 unit SUBCUT BEDTIME [facility] Insulin Human Lispro (Humalog) 4 unit SUBCUT TIDAC [facility] Last Admin: 09/07/18 12:35 Dose: 4 units Insulin Human Lispro (Humalog) 0 unit SUBCUT ACBED [facility]; Protocol Last Admin: 09/07/18 12:36 Dose: 3 units Labetalol HCl (Normodyne) 200 mg PO BID [facility] Last Admin: 09/07/18 08:55 Dose: 200 mg Lisinopril (Prinivil) 20 mg PO BID [facility] Last Admin: 09/07/18 08:57 Dose: 20 mg Polyethylene Glycol (Miralax) 17 gm PO BEDTIME [facility] Last Admin: 09/06/18 20:40 Dose: 17 gm Potassium Chloride (Klor-Con 10) 20 meq PO BEDTIME [facility] Last Admin: 09/06/18 20:42 Dose: 20 meq Sodium Chloride (Saline Flush) 10 ml FLUSH ASDIRECTED PRN PRN Reason: Keep Vein Open Last Admin: 09/05/18 22:10 Dose: 10 ml Discontinued Medications Aspirin (Aspirin) 325 mg PO WITHBREAKFAST [facility] Last Admin: 09/03/18 10:00 Dose: 325 mg Diltiazem HCl (Cardizem Cd) 240 mg PO DAILY [facility] Last Admin: 09/03/18 10:00 Dose: 240 mg Docusate Sodium (Colace) 100 mg PO BEDTIME [facility] Last Admin: 09/02/18 22:41 Dose: Not Given Insulin Glargine (Lantus) 30 unit SUBCUT BEDTIME [facility] Last Admin: 09/06/18 20:54 Dose: 30 units Labetalol HCl (Normodyne) 100 mg PO BID [facility] Last Admin: 09/06/18 08:31 Dose: 100 mg Lisinopril (Prinivil) 20 mg PO BID [facility] Last Admin: 09/03/18 10:01 Dose: 20 mg Meclizine HCl (Antivert) 12.5 mg PO ONETIME ONE Stop: 09/02/18 20:48 Last Admin: 09/02/18 20:57 Dose: 12.5 mg Meclizine HCl (Antivert) 12.5 mg PO TID [facility] Last Admin: 09/07/18 08:56 Dose: 12.5 mg Ondansetron HCl (Zofran) 4 mg IV ONETIME ONE Stop: 09/02/18 20:01 Last Admin: 09/02/18 20:10 Dose: 4 mg Diltiazem 1240 Mg (Cap.Cd) 240 each PO DAILY [facility] Diltiazem 240 Mg Cap (.Er Own Med) 1 each PO DAILY [facility] Potassium Chloride 20 Meq Tab.Er Own Med 1 each PO BEDTIME [facility] Lisinopril 20 Mg Tab (Own Med) 1 each PO BID [facility] Docusate Sodium 100 (Mg Cap Own Med) 1 each PO BEDTIME [facility] Potassium Chloride 20 Meq Tab.Er Own Med 2 each PO ONETIME ONE Stop: 09/03/18 11:16 Last Admin: 09/03/18 11:14 Dose: 2 each Potassium Chloride (Klor-Con 10) 20 meq PO BEDTIME [facility] Last Admin: 09/02/18 22:41 Dose: Not Given Potassium Chloride (Klor-Con 10) 40 meq PO ONETIME ONE Stop: 09/04/18 11:05 Last Admin: 09/04/18 12:16 Dose: 40 meq Zolpidem Tartrate (Ambien) 5 mg PO BEDTIME PRN PRN Reason: Sleep Last Admin: 09/04/18 20:01 Dose: 5 mg - Exam General: Reports: Alert Neck: Reports: Supple Lungs: Reports: Clear to Auscultation, Normal Respiratory Effort Cardiovascular: Reports: Regular Rate, Regular Rhythm GI/Abdominal Exam: Normal Bowel Sounds, Soft, Non-Tender Extremities: No Pedal Edema Skin: Reports: Warm Neurological: Reports: Other (left facial droop, left hemiparesis). Denies: Normal Gait, Normal Speech
[2018-09-07] MEDS ORDERED: Insulin Glarg,Human.Rec.Analog 100 UNIT/ML ML SUBCUT SCH (21:00)
[2018-09-07] MEDS: atorvaSTATin 20 MG Tab PO SCH (21:34)
[2018-09-07] MEDS: Potassium Chloride 10 MEQ Tab.ER PO SCH (21:34)
[2018-09-07] MEDS: Polyethylene Glycol 3350 Powder 17 GM Packet PO SCH (21:35)
[2018-09-07] MEDS: Docusate Sodium 100 MG Cap PO SCH (21:35)
[2018-09-08] MEDS: Heparin Sodium 5,000 Units/ML Vial SUBCUT SCH (05:23)
[2018-09-08 07:20] LABS: CHLORIDE,CL 107 mmol/L (101-111); SODIUM,NA 140 mmol/L (135-145)
[2018-09-08] MEDS: Insulin Lispro 100 Units/ML 3 ML Vial SUBCUT SCH ×2 (08:42→08:43)
[2018-09-08] MEDS: Labetalol 100 MG Tab PO SCH (08:45)
[2018-09-08] MEDS: Furosemide 20 MG Tab PO SCH (08:45)
[2018-09-08] MEDS: Diltiazem 240 MG Cap.ER PO SCH (08:45)
[2018-09-08] MEDS: Lisinopril 20 MG Tab PO SCH (08:45)
[2018-09-08] MEDS: Clopidogrel 75 MG Tab PO SCH (08:45)
[2018-09-08 08:48] VITALS: BP 142/66
== END 2018-09-08 10:05 | DRG 65 ==
LOC: DL.ED 20:03 → DL.MS 21:44 → UNDOADMOB 21:44 → DL.MS 21:56 → OBSVTOIN 09-03 11:20 → DL.MS 09-03 11:25
PROVIDERS: ADMIT Internal Medicine; ATTEND Internal Medicine
DX: I63.9 Cerebral infarction, unspecified (principal); I69.354 Hemiplegia and hemiparesis following cerebral infarction affecting left non-dominant side; I10 Essential (primary) hypertension; E78.5 Hyperlipidemia, unspecified; I48.0 Paroxysmal atrial fibrillation; I69.392 Facial weakness following cerebral infarction; R29.6 Repeated falls; F03.90 Unspecified dementia, unspecified severity, without behavioral disturbance, psychotic disturbance, mood disturbance, and anxiety; H91.90 Unspecified hearing loss, unspecified ear; H54.7 Unspecified visual loss; K59.09 Other constipation; E11.42 Type 2 diabetes mellitus with diabetic polyneuropathy; E87.6 Hypokalemia; Z79.82 Long term (current) use of aspirin; Z79.02 Long term (current) use of antithrombotics/antiplatelets; Z79.4 Long term (current) use of insulin; Z88.0 Allergy status to penicillin; Z98.49 Cataract extraction status, unspecified eye
CPT/HCPCS: 36415; 70450; 70551; 71045; 80048; 80053; 81001; 82962; 83880; 84484; 85025; 93005; 96372; 96374; 97162-GP; 97166-GO; 97530-GO; 99285-25; A9270-GY; G0378; J1644; J1815; J1815-GY; J2405

== ENCOUNTER 2018-12-29 19:32 | Emergency (ER) | payer MEDICARE, OTHER ==
[2018-12-29] MEDS ORDERED: Ondansetron 4 MG/2 ML SDV ONE (19:34)
[2018-12-29] MEDS ORDERED: Sodium Chloride 0.9% 1,000 ML IV ONE (19:42)
[2018-12-29 20:05] LABS: ALLEN TEST PERFORMED; BASE EXCESS ARTERIAL -1 mmol/L ((-2)-(+3)); BICARBONATE,ARTERIAL 24.6 mmol/L (22-26); O2 DELIVERY DEVICE NON REBR MASK; O2 SATURATION ARTERIAL 94 % (95-100); PCO2 ARTERIAL 49 mmHg (35-45); PO2 ARTERIAL 78 mmHg (70-100)
[2018-12-29 20:07] LABS: CHLORIDE,CL 103 mmol/L (101-111); SODIUM,NA 142 mmol/L (135-145)
[2018-12-29] MEDS ORDERED: Levofloxacin/Dextrose 5%-Water 500 MG in Premix Bag 1 BAG IV ONE (20:21)
--- NOTE | 2018-12-29 20:40 | EDM.PDOC ---
"ED HPI GENERAL MEDICAL PROBLEM - General Chief Complaint: Diabetic Complaint Stated Complaint: AMBULANCE, HYPOGLYCEMIC Time Seen by Provider: 12/29/18 19:35 Source of Information: Reports: Patient History Limitations: Reports: No Limitations - History of Present Illness INITIAL COMMENTS - FREE TEXT/NARRATIVE: ED via [facility] from [facility] with hypo glycemia, Glucagon by ME and D50 x1 enroute by EMS. Insulin before supper, ate partial, unresponsive after and emesis. 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 Patient opens eyes to verbal, slow response. Onset: Today - Related Data Allergies Allergy/AdvReac Type Severity Reaction Status Date / Time Penicillins Allergy Rash Verified 03/17/17 02:57 Home Meds: Home Meds Diltiazem HCl [Diltiazem 24Hr Cd] 240 mg PO DAILY 10/20/13 [History] Insulin Glarg,Human.Rec.Analog [Lantus] 26 units SQ BEDTIME 10/20/13 [History] Potassium Chloride [Klor-Con M20] 20 meq PO BEDTIME 10/20/13 [History] Lisinopril 20 mg PO BID 11/03/15 [History] Docusate Sodium/Sennosides [Senna Plus] 1 tab PO BEDTIME 12/17/16 [History] Sennosides [Laxative Maximum Strength] 25 mg PO BEDTIME 12/17/16 [History] Ibuprofen [Motrin] 400 mg PO Q8HR #30 tablet 12/20/16 [Rx] Insulin Aspart [NovoLOG] See Protocol SUBCUT TIDAC #1 pen 12/24/16 [Rx] Insulin Lispro [Humalog] 4 units SQ ACBREAKFAST 09/02/18 [History] Insulin Lispro [Humalog] 10 units SQ ACDINNER 09/02/18 [History] Insulin Lispro [Humalog] 12 units SQ ACLUNCH 09/02/18 [History] Acetaminophen [Tylenol] 650 mg PO Q4H PRN tablet 09/07/18 [Rx] Clopidogrel [Plavix] 75 mg PO DAILY #30 tablet 09/07/18 [Rx] Labetalol [Normodyne] 200 mg PO BID #60 tablet 09/07/18 [Rx] atorvaSTATin [Lipitor] 20 mg PO BEDTIME #30 tablet 09/07/18 [Rx] Past Medical History HEENT History: Reports: Cataract, Hard of Hearing, Impaired Vision Cardiovascular History: Reports: High Cholesterol, Hypertension Gastrointestinal History: Reports: Chronic Constipation Genitourinary History: Reports: Prostate Disorder Musculoskeletal History: Reports: Other (See Below) Other Musculoskeletal History: left wrist drop Neurological History: Reports: Neuropathy, Diabetic, Seizure, Other (See Below) Other Neuro History: West Nile Virus Encephalitis Psychiatric History: Reports: None Other Psychiatric History: dementia Endocrine/Metabolic History: Reports: Diabetes, Type II Hematologic History: Reports: Anemia Immunologic History: Reports: None Oncologic (Cancer) History: Reports: Prostate 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 Dermatologic History: Reports: Other (See Below) Other Dermatologic History: patchy skin dryness - Infectious Disease History Infectious Disease History: Reports: Chicken Pox, Measles - Past Surgical History HEENT Surgical History: Reports: Adenoidectomy, Cataract Surgery, Tonsillectomy Cardiovascular Surgical History: Reports: None GI Surgical History: Reports: Colonoscopy Male Surgical History: Reports: None Endocrine Surgical History: Reports: None Neurological Surgical History: Reports: None Dermatological Surgical History: Reports: None Social & Family History - Family History Family Medical History: Noncontributory - Caffeine Use Caffeine Use: Reports: Coffee, Tea - Living Situation & Occupation Living situation: Reports: Single ED ROS GENERAL - Review of Systems Review Of Systems: ROS reveals no pertinent complaints other than HPI. ED EXAM GENERAL NO PERIP PULSE - Physical Exam Exam: See Below Exam Limited By: No Limitations General Appearance: Obtunded, Moderate Distress, Obese Eye Exam: Bilateral Eye: EOMI, PERRL (3) Ears: Normal External Exam Nose: Normal Inspection Throat/Mouth: Normal Lips, Other (food particles) Head: Atraumatic, Normocephalic Neck: Normal Inspection Respiratory/Chest: Other (coarse upper left, decreased right) Cardiovascular: Normal Peripheral Pulses, Regular Rate, Rhythm GI/Abdominal: Soft, Abnormal Bowel Sounds (hypo active) Rectal (Males) Exam: Normal Rectal Tone, Other (skin breakdown, perirectal) Extremities: No: Normal Range of Motion Neurological: Slow to Respond, Abnormal Reflexes. No: Normal Cognition Skin Exam: Warm, Diaphoretic Course - Vital Signs Last Recorded V/S: Last Vital Signs Temp 97.1 F 12/29/18 19:30 Pulse 57 L 12/29/18 20:42 Resp 26 H 12/29/18 20:42 BP 132/61 12/29/18 20:42 Pulse Ox - Orders/Labs/Meds Orders: Active Orders 24 hr Category Date Time Status EKG Documentation Completion [RC] URGENT Care 12/29/18 19:39 Active Insert Urinary Catheter [OM.PC] Q24H Care 12/29/18 20:30 Ordered Urinary Catheter Assessment [RC] ASDIRECTED Care 12/29/18 20:31 Active CXR [Chest 1V Frontal] [CR] Urgent Exams 12/29/18 20:43 Taken Chest 1V Frontal [CR] Urgent Exams 12/29/18 19:39 Taken Head wo Cont [CT] Urgent Exams 12/29/18 19:39 Taken CULTURE BLOOD [BC] Stat Lab 12/29/18 19:40 Received CULTURE BLOOD [BC] Stat Lab 12/29/18 20:10 Received Blood Culture x2 Reflex Set [OM.PC] Stat Oth 12/29/18 19:39 Ordered Labs: Laboratory Tests 12/29/18 12/29/18 12/29/18 Range/Units 19:37 19:40 19:40 WBC 11.5 H (5.0-10.0) 10^3/uL RBC 4.98 (4.6-6.2) 10^6/uL Hgb 14.4 (14.0-18.0) g/dL Hct 43.8 (40.0-54.0) % MCV 88.0 (80-100) fL MCH 28.9 (27.0-34.0) pg MCHC 32.9 L (33.0-35.0) g/dL Plt Count 355 D (150-450) 10^3/uL Neut % (Auto) 75.7 H (42.2-75.2) % Lymph % (Auto) 14.0 L (20.5-50.1) % Dillon % (Auto) 7.0 (2-8) % Eos % (Auto) 3.1 H (1.0-3.0) % Baso % (Auto) 0.2 (0.0-1.0) % ABG pH (7.35-7.45) ABG pCO2 (35-45) mmHg ABG pO2 (70-100) mmHg ABG HCO3 (22-26) mmol/L ABG O2 Saturation (95-100) % ABG Base Excess ((-2)-(+3)) mmol/L Gerry Test O2 Delivery Device Sodium 142 (135-145) mmol/L Potassium 4.0 (3.6-5.0) mmol/L Chloride 103 (101-111) mmol/L Carbon Dioxide 29.0 (21.0-31.0) mmol/L Anion Gap 14.0 BUN 22 H (7-18) mg/dL Creatinine 0.7 (0.6-1.3) mg/dL Est Cr Clr Drug Dosing TNP Estimated GFR (MDRD) > 60 BUN/Creatinine Ratio 31.42 Glucose 131 H (74-105) mg/dL POC Glucose 152 H (83-110) mg/dl Lactic Acid (0.5-2.2) mmol/L Calcium 8.9 (8.4-10.2) mg/dl Total Bilirubin 0.6 (0.2-1.0) mg/dL AST 17 (10-42) IU/L ALT 18 (10-60) IU/L Alkaline Phosphatase 92 (42-121) IU/L CK-MB (CK-2) (0.4-4.7) ng/mL Troponin I < 0.02 (0.00-0.02) ng/ml B-Natriuretic Peptide 107 H (0-100) pg/ml Total Protein 7.7 (6.7-8.2) g/dl Albumin 4.0 (3.2-5.5) g/dl Globulin 3.7 Albumin/Globulin Ratio 1.08 Urine Color (YELLOW) Urine Appearance (CLEAR) Urine pH (5.0-9.0) Ur Specific Combs (1.005-1.030) Urine Protein (NEGATIVE) Urine Glucose (UA) (NEGATIVE) Urine Ketones (NEGATIVE) Urine Occult Blood (NEGATIVE) Urine Nitrite (NEGATIVE) Urine Bilirubin (NEGATIVE) Urine Urobilinogen (0.2-1.0) mg/dL Ur Leukocyte Esterase (NEGATIVE) Urine RBC /HPF Urine WBC (0-5/HPF) /HPF Ur Epithelial Cells (NOT SEEN) /HPF Amorphous Sediment (NOT SEEN) /HPF Urine Bacteria (0-FEW/HPF) /HPF Urine Mucus (NOT SEEN) /LPF 12/29/18 12/29/18 12/29/18 Range/Units 19:40 19:40 19:57 WBC (5.0-10.0) 10^3/uL RBC (4.6-6.2) 10^6/uL Hgb (14.0-18.0) g/dL Hct (40.0-54.0) % MCV (80-100) fL MCH (27.0-34.0) pg MCHC (33.0-35.0) g/dL Plt Count (150-450) 10^3/uL Neut % (Auto) (42.2-75.2) % Lymph % (Auto) (20.5-50.1) % Dillon % (Auto) (2-8) % Eos % (Auto) (1.0-3.0) % Baso % (Auto) (0.0-1.0) % ABG pH 7.32 L (7.35-7.45) ABG pCO2 49 H (35-45) mmHg ABG pO2 78 (70-100) mmHg ABG HCO3 24.6 (22-26) mmol/L ABG O2 Saturation 94 L (95-100) % ABG Base Excess -1 ((-2)-(+3)) mmol/L Gerry Test Performed O2 Delivery Device Non rebr mask Sodium (135-145) mmol/L Potassium (3.6-5.0) mmol/L Chloride (101-111) mmol/L Carbon Dioxide (21.0-31.0) mmol/L Anion Gap BUN (7-18) mg/dL Creatinine (0.6-1.3) mg/dL Est Cr Clr Drug Dosing Estimated GFR (MDRD) BUN/Creatinine Ratio Glucose (74-105) mg/dL POC Glucose (83-110) mg/dl Lactic Acid 1.8 (0.5-2.2) mmol/L Calcium (8.4-10.2) mg/dl Total Bilirubin (0.2-1.0) mg/dL AST (10-42) IU/L ALT (10-60) IU/L Alkaline Phosphatase (42-121) IU/L CK-MB (CK-2) 4.50 (0.4-4.7) ng/mL Troponin I (0.00-0.02) ng/ml B-Natriuretic Peptide (0-100) pg/ml Total Protein (6.7-8.2) g/dl Albumin (3.2-5.5) g/dl Globulin Albumin/Globulin Ratio Urine Color (YELLOW) Urine Appearance (CLEAR) Urine pH (5.0-9.0) Ur Specific Combs (1.005-1.030) Urine Protein (NEGATIVE) Urine Glucose (UA) (NEGATIVE) Urine Ketones (NEGATIVE) Urine Occult Blood (NEGATIVE) Urine Nitrite (NEGATIVE) Urine Bilirubin (NEGATIVE) Urine Urobilinogen (0.2-1.0) mg/dL Ur Leukocyte Esterase (NEGATIVE) Urine RBC /HPF Urine WBC (0-5/HPF) /HPF Ur Epithelial Cells (NOT SEEN) /HPF Amorphous Sediment (NOT SEEN) /HPF Urine Bacteria (0-FEW/HPF) /HPF Urine Mucus (NOT SEEN) /LPF 12/29/18 12/29/18 12/29/18 Range/Units 20:16 20:36 20:37 WBC (5.0-10.0) 10^3/uL RBC (4.6-6.2) 10^6/uL Hgb (14.0-18.0) g/dL Hct (40.0-54.0) % MCV (80-100) fL MCH (27.0-34.0) pg MCHC (33.0-35.0) g/dL Plt Count (150-450) 10^3/uL Neut % (Auto) (42.2-75.2) % Lymph % (Auto) (20.5-50.1) % Dillon % (Auto) (2-8) % Eos % (Auto) (1.0-3.0) % Baso % (Auto) (0.0-1.0) % ABG pH (7.35-7.45) ABG pCO2 (35-45) mmHg ABG pO2 (70-100) mmHg ABG HCO3 (22-26) mmol/L ABG O2 Saturation (95-100) % ABG Base Excess ((-2)-(+3)) mmol/L Gerry Test O2 Delivery Device Sodium (135-145) mmol/L Potassium (3.6-5.0) mmol/L Chloride (101-111) mmol/L Carbon Dioxide (21.0-31.0) mmol/L Anion Gap BUN (7-18) mg/dL Creatinine (0.6-1.3) mg/dL Est Cr Clr Drug Dosing Estimated GFR (MDRD) BUN/Creatinine Ratio Glucose (74-105) mg/dL POC Glucose 110 101 (83-110) mg/dl Lactic Acid (0.5-2.2) mmol/L Calcium (8.4-10.2) mg/dl Total Bilirubin (0.2-1.0) mg/dL AST (10-42) IU/L ALT (10-60) IU/L Alkaline Phosphatase (42-121) IU/L CK-MB (CK-2) (0.4-4.7) ng/mL Troponin I (0.00-0.02) ng/ml B-Natriuretic Peptide (0-100) pg/ml Total Protein (6.7-8.2) g/dl Albumin (3.2-5.5) g/dl Globulin Albumin/Globulin Ratio Urine Color Yellow (YELLOW) Urine Appearance Slightly cloudy (CLEAR) Urine pH 7.0 (5.0-9.0) Ur Specific Combs 1.025 (1.005-1.030) Urine Protein 30 H (NEGATIVE) Urine Glucose (UA) Negative (NEGATIVE) Urine Ketones Negative (NEGATIVE) Urine Occult Blood Negative (NEGATIVE) Urine Nitrite Negative (NEGATIVE) Urine Bilirubin Negative (NEGATIVE) Urine Urobilinogen 0.2 (0.2-1.0) mg/dL Ur Leukocyte Esterase Negative (NEGATIVE) Urine RBC 0-5 /HPF Urine WBC 0-5 (0-5/HPF) /HPF Ur Epithelial Cells Rare (NOT SEEN) /HPF Amorphous Sediment Rare (NOT SEEN) /HPF Urine Bacteria Rare (0-FEW/HPF) /HPF Urine Mucus Few H (NOT SEEN) /LPF Meds: Medications Discontinued Medications Generic Name Dose Route Start Last Admin Trade Name Freq PRN Reason Stop Dose Admin Sodium Chloride 1,000 mls @ 100 mls/hr 12/29/18 19:42 12/29/18 19:39 Normal Saline IV 12/30/18 05:41 100 mls/hr .BOLUS ONE Administration Levofloxacin/Dextrose 500 mg/ 100 mls @ 100 mls/hr 12/29/18 20:21 12/29/18 20 :48 Premix IV 12/29/18 21:20 100 mls/hr ONETIME ONE Administration Dextrose/Sodium Chloride 1,000 mls @ 100 mls/hr 12/29/18 20:48 12/29/18 20:39 Dextrose 5%-Normal Saline IV 12/30/18 06:47 100 mls/hr ONETIME ONE Administration Ondansetron HCl Confirm 12/29/18 19:34 12/29/18 19:32 Zofran Administered 12/29/18 19:35 4 mg Dose Administration 4 mg .ROUTE .STK-MED ONE Ondansetron HCl 4 mg 12/29/18 21:51 12/29/18 21:51 Zofran IV 12/29/18 21:52 Not Given ONETIME ONE - Radiology Interpretation Free Text/Narrative:: [facility] - [facility] Final Radiology Report Call: [phone] assistance Online chat: [email or web address] Name: MARKOS GUTIÉRREZ Age: 83Years M Date: 12/29/2018 SSN: -- : [id number] Study: CT HEAD WO Requesting Physician: AUGUSTUS HINSON Images: 155 Addl Studies: Provided Clinical History: Contrast: Without Contrast Medium: Contrast Amount: Contrast Method: Page 1 of 2 EXAM: CT Head Without Contrast EXAM DATE/TIME: 12/29/2018 7:57 PM CLINICAL HISTORY: 83 years old, male; Other: Unresponsive, hypoxia TECHNIQUE: Imaging protocol: Computed tomography of the head without contrast. Radiation optimization: All CT scans at this facility use at least one of these dose optimization techniques: automated exposure control; mA and/or kV adjustment per patient size (includes targeted exams where dose is matched to clinical indication); or iterative reconstruction. COMPARISON: CT Head wo Cont 09/02/2018 8:06 PM FINDINGS: Brain: Age-related atrophy and chronic white matter ischemic changes, with no evidence of an acute intracranial abnormality. No hemorrhage, mass effect or midline shift. Ventricles: The ventricular system demonstrates moderate diffuse compensatory enlargement. Bones/joints: No acute fracture. Sinuses: Visualized sinuses are unremarkable. No fluid levels. Mastoid air cells: Visualized mastoid air cells are well aerated. Soft tissues: No acute changes Vasculature: The vasculature demonstrates diffuse moderate atherosclerotic calcification. IMPRESSION: 1. Age-related atrophy and chronic white matter ischemic changes, with no evidence of an acute intracranial abnormality. MARKOS GUTIÉRREZ | Final Radiology Report CONFIDENTIALITY STATEMENT This report is intended only for use by the referring physician, and only in accordance with law. If you received this in error, call [phone]. Page 2 of 2 2. No hemorrhage, mass effect or midline shift. Thank you for allowing us to participate in the care of your patient. Dictated and Authenticated by: Mike Vail DO 12/29/2018 8:10 PM Central Time ([place] & [place]) [facility] Final Radiology Report Call: [phone] assistance Online chat: [email or web address] Name: MARKOS GUTIÉRREZ Age: 83Years M Date: 12/29/2018 SSN: -- : [id number] Study: XR CHEST 1 VIEW FRONTAL Requesting Physician: AUGUSTUS HINSON Images: 1 Addl Studies: Provided Clinical History: Contrast: Contrast Medium: Contrast Amount: Contrast Method: Page 1 of 2 EXAM: XR Chest, 1 View EXAM DATE/TIME: 12/29/2018 7:41 PM CLINICAL HISTORY: 83 years old, male; Other: Unresponsive, hypoxia TECHNIQUE: Imaging protocol: XR of the chest Views: 1 view. COMPARISON: CR Chest 1V Frontal 09/02/2018 8:31 PM FINDINGS: Lungs: Area of infiltrate present within the right lower lobe. Atelectatic changes are within both lung bases. Pleural space: Unremarkable. No pleural effusion. No pneumothorax. Heart/Mediastinum: The heart demonstrates mild diffuse enlargement. Bones/joints: The thoracic spine demonstrates mild degenerative changes at multiple levels. Soft tissues: The vasculature demonstrates diffuse mild atherosclerotic calcification. IMPRESSION: Area of infiltrate present within the right lower lobe. Thank you for allowing us to participate in the care of your patient. - Re-Assessments/Exams Free Text/Narrative Re-Assessment/Exam: 12/29/18 20:15 Dr Titus accepting of patient, 12/29/18 20:41 [facility] here, continued altered mental status, decreased saturation with any attempt to modify NRB at 15. Intubate prior to tx. Departure - Departure Time of Disposition: 21:15 Disposition: DC/Tfer to Acute Hospital 02 Condition: Undetermined Clinical Impression: Vomiting, Hypoglycemia, Hypoxia, Respiratory distress Altered mental status Qualifiers: Altered mental status type: somnolence Qualified Code(s): R40.0 - Somnolence - Discharge Information *PRESCRIPTION DRUG MONITORING PROGRAM REVIEWED*: Not Applicable *COPY OF PRESCRIPTION DRUG MONITORING REPORT IN PATIENT FABIOLA: Not Applicable Referrals: PCP,Unobtain [Primary Care Provider] - Forms: ED Department Discharge - My Orders Last 24 Hours: My Active Orders 12/29/18 19:39 EKG Documentation Completion [RC] URGENT Chest 1V Frontal [CR] Urgent Head wo Cont [CT] Urgent Blood Culture x2 Reflex Set [OM.PC] Stat 12/29/18 19:40 CULTURE BLOOD [BC] Stat 12/29/18 20:10 CULTURE BLOOD [BC] Stat 12/29/18 20:30 Insert Urinary Catheter [OM.PC] Q24H 12/29/18 20:31 Urinary Catheter Assessment [RC] ASDIRECTED 12/29/18 20:43 CXR [Chest 1V Frontal] [CR] Urgent - Assessment/Plan Last 24 Hours: My Active Orders 12/29/18 19:39 EKG Documentation Completion [RC] URGENT Chest 1V Frontal [CR] Urgent Head wo Cont [CT] Urgent Blood Culture x2 Reflex Set [OM.PC] Stat 12/29/18 19:40 CULTURE BLOOD [BC] Stat 12/29/18 20:10 CULTURE BLOOD [BC] Stat 12/29/18 20:30 Insert Urinary Catheter [OM.PC] Q24H 12/29/18 20:31 Urinary Catheter Assessment [RC] ASDIRECTED 12/29/18 20:43 CXR [Chest 1V Frontal] [CR] Urgent"
[2018-12-29 20:43] VITALS: BP 132/61
[2018-12-29] MEDS ORDERED: Dextrose 5%-0.9% NaCl 1,000 ML IV ONE (20:48)
[2018-12-29] MEDS ORDERED: Ondansetron 4 MG/2 ML SDV IV ONE (21:51)
== END 2018-12-29 21:15 ==
LOC: DL.ED 19:32
DX: E11.649 Type 2 diabetes mellitus with hypoglycemia without coma (principal); R09.02 Hypoxemia; R06.03 Acute respiratory distress; R11.10 Vomiting, unspecified; I10 Essential (primary) hypertension; E78.00 Pure hypercholesterolemia, unspecified; E11.40 Type 2 diabetes mellitus with diabetic neuropathy, unspecified; F03.90 Unspecified dementia, unspecified severity, without behavioral disturbance, psychotic disturbance, mood disturbance, and anxiety; Z86.2 Personal history of diseases of the blood and blood-forming organs and certain disorders involving the immune mechanism; Z88.0 Allergy status to penicillin; Z79.02 Long term (current) use of antithrombotics/antiplatelets; Z79.4 Long term (current) use of insulin
CPT/HCPCS: 36415; 36600; 70450; 71045; 80053; 81001; 82272; 82553; 82803; 82962; 83605; 83880; 84484; 85025; 87040; 93005; 96361; 96365; 96375; 99285; J1956; J2405; J7030; J7042

== ENCOUNTER 2019-04-06 13:07 | Emergency (ER) | payer MEDICARE, OTHER ==
[2019-04-06 13:31] VITALS: BP 145/72; PULSE 77
--- NOTE | 2019-04-06 13:44 | CT ---
EXAMINATION: Head wo Cont SEX: Male AGE: 83 years CLINICAL HISTORY: 83-year-old male with past history of cerebral vascular disease i.e. MRI exam 03 Sep 2018 confirmed "chronic microvascular ischemic white matter disease; left occipital cortical infarction; right posterior thalamic lacunar infarct; subcortical infarct left frontal operculum; and, infarction left caudate body/lenticular form nucleus; acute right mid anterior pontine lacunar INFARCTION". Subsequent CT scan head revealed "chronic white matter ischemic changes but no intracranial hemorrhage or mass effect". Reevaluate please patient with left facial droop "favoring" the left arm. Scan technique: Volume acquisition of data emergency unenhanced CT scan of the head and brain obtained with the patient lying supine on the Siemens multislice scanner [place], [place]. All data archived in the PAC system for storage, reformatting axial/sagittal/coronal planes and study. Comparison CT 29 December and MRI 03 September. Interpretation: Generalized Atrophy. Extensive MULTI-INFARCT ISCHEMIC CHANGES identified throughout both cerebral hemispheres, cerebellum and brainstem that were evident on previous CT exam 29 December 2018 i.e. relatively unchanged. No new signs of supratentorial or posterior fossa mass lesion. Chronic "ballooning" left lateral ventricle. No hydrocephalus. No sign of acute intracerebral/intraventricular/subarachnoid bleed, new edema/mass effect on the surrounding sulci, or abnormal extracerebral/intracranial epidural or subdural hematoma. Uniformly thick bony calvarium. Symmetric clear pneumatization of the paranasal and mastoid sinuses. CONCLUSION: Markedly abnormal but stable and relatively UNCHANGED since comparison CT exam 29 December 2018.
[2019-04-06 13:55] LABS: CHLORIDE,CL 107 mmol/L (101-111); SODIUM,NA 143 mmol/L (135-145)
--- NOTE | 2019-04-06 14:34 | EDM.PDOC ---
ED HPI GENERAL MEDICAL PROBLEM - General Stated Complaint: STROKE Time Seen by Provider: 04/06/19 13:30 Source of Information: Reports: Patient History Limitations: Reports: No Limitations - History of Present Illness INITIAL COMMENTS - FREE TEXT/NARRATIVE: This 83 yo male patient was [facility] today due to a possible stroke. The patient has a history of a CVA, but reportedly had increased symptoms today. The patient was brought directly to the CT scanner due to reports of a stroke. prison staff report that the patient may have been having additional stroke symptoms. The patient does have a history of a stroke effecting his left side. Onset: Today Duration: Constant Location: Reports: Other (jail staff report left sided facil droop and left sided weakness) Quality: Reports: Other Severity: Moderate Improves with: Reports: None Worsens with: Reports: None Context: Reports: Other Associated Symptoms: Reports: No Other Symptoms - Related Data Allergies Allergy/AdvReac Type Severity Reaction Status Date / Time Penicillins Allergy Rash Verified 04/06/19 13:32 Home Meds: Home Meds Diltiazem HCl [Diltiazem 24Hr Cd] 240 mg PO DAILY 10/20/13 [History] Insulin Glarg,Human.Rec.Analog [Lantus] 26 units SQ BEDTIME 10/20/13 [History] Potassium Chloride [Klor-Con M20] 20 meq PO BEDTIME 10/20/13 [History] Lisinopril 20 mg PO BID 11/03/15 [History] Docusate Sodium/Sennosides [Senna Plus] 1 tab PO BEDTIME 12/17/16 [History] Sennosides [Laxative Maximum Strength] 25 mg PO BEDTIME 12/17/16 [History] Ibuprofen [Motrin] 400 mg PO Q8HR #30 tablet 12/20/16 [Rx] Insulin Aspart [NovoLOG] See Protocol SUBCUT TIDAC #1 pen 12/24/16 [Rx] Insulin Lispro [Humalog] 4 units SQ ACBREAKFAST 09/02/18 [History] Insulin Lispro [Humalog] 10 units SQ ACDINNER 09/02/18 [History] Insulin Lispro [Humalog] 12 units SQ ACLUNCH 09/02/18 [History] Acetaminophen [Tylenol] 650 mg PO Q4H PRN tablet 05/14/19 [Rx] Clopidogrel [Plavix] 75 mg PO DAILY #30 tablet 09/07/18 [Rx] Labetalol [Normodyne] 200 mg PO BID #60 tablet 09/07/18 [Rx] atorvaSTATin [Lipitor] 20 mg PO BEDTIME #30 tablet 09/07/18 [Rx] Past Medical History HEENT History: Reports: Cataract, Hard of Hearing, Impaired Vision Other HEENT History: wears glasses Cardiovascular History: Reports: High Cholesterol, Hypertension Respiratory History: Reports: None Gastrointestinal History: Reports: Chronic Constipation Genitourinary History: Reports: Prostate Disorder Musculoskeletal History: Reports: Other (See Below) Other Musculoskeletal History: left wrist drop Neurological History: Reports: Neuropathy, Diabetic, Seizure, Other (See Below) Other Neuro History: West Nile Virus Encephalitis Psychiatric History: Reports: None Other Psychiatric History: dementia Endocrine/Metabolic History: Reports: Diabetes, Type II Hematologic History: Reports: Anemia Immunologic History: Reports: None Oncologic (Cancer) History: Reports: Prostate 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 Dermatologic History: Reports: Other (See Below) Other Dermatologic History: patchy skin dryness - Infectious Disease History Infectious Disease History: Reports: Chicken Pox, Measles - Past Surgical History HEENT Surgical History: Reports: Adenoidectomy, Cataract Surgery, Tonsillectomy Cardiovascular Surgical History: Reports: None GI Surgical History: Reports: Colonoscopy Male Surgical History: Reports: None Endocrine Surgical History: Reports: None Neurological Surgical History: Reports: None Dermatological Surgical History: Reports: None Social & Family History - Family History Family Medical History: Noncontributory - Tobacco Use Smoking Status *Q: Never Smoker Second Hand Smoke Exposure: No - Caffeine Use Caffeine Use: Reports: None - Recreational Drug Use Recreational Drug Use: No - Living Situation & Occupation Living situation: Reports: Single ED ROS GENERAL - Review of Systems Review Of Systems: Comprehensive ROS is negative, except as noted in HPI. ED EXAM, NEURO - Physical Exam Exam: See Below Exam Limited By: No Limitations General Appearance: Alert, WD/WN, No Apparent Distress Eye Exam: Bilateral Eye: EOMI, Normal Inspection, PERRL Ears: Normal External Exam, Normal Canal, Hearing Grossly Normal, Normal TMs Nose: Normal Inspection, Normal Mucosa, No Blood Throat/Mouth: Normal Inspection, Normal Lips, Normal Teeth, Normal Gums, Normal Oropharynx, Normal Voice, No Airway Compromise Head Exam: Atraumatic, Normocephalic Neck: Normal Inspection, Supple, Non-Tender, Full Range of Motion Respiratory/Chest: No Respiratory Distress, Lungs Clear, Normal Breath Sounds, No Accessory Muscle Use, Chest Non-Tender, Prolonged Expiration GI/Abdominal: Normal Bowel Sounds, Soft, Non-Tender, No Organomegaly, No Distention, No Abnormal Bruit, No Mass (Male) Exam: Deferred Rectal (Males) Exam: Deferred Neurological: Alert, Normal Mood/Affect, Abnormal Motor (left sided weakness ( chronic from previous CVA)) Back Exam: Normal Inspection, Full Range of Motion, NT Psychiatric: Normal Affect, Normal Mood Skin Exam: Warm, Dry, Intact, Normal Color, No Rash Course - Vital Signs Last Recorded V/S: Last Vital Signs Temp 36.3 C 04/06/19 13:24 Pulse 77 04/06/19 13:24 Resp 16 04/06/19 13:24 BP 145/72 H 04/06/19 13:24 Pulse Ox 95 04/06/19 13:24 - Orders/Labs/Meds Orders: Active Orders 24 hr Category Date Time Status EKG Documentation Completion [RC] URGENT Care 04/06/19 13:10 Ordered Labs: Laboratory Tests 04/06/19 04/06/19 04/06/19 Range/Units 13:22 13:22 13:23 WBC 10.8 H (5.0-10.0) 10^3/uL RBC 4.55 L (4.6-6.2) 10^6/uL Hgb 13.0 L (14.0-18.0) g/dL Hct 39.7 L (40.0-54.0) % MCV 87.3 (80-100) fL MCH 28.6 (27.0-34.0) pg MCHC 32.7 L (33.0-35.0) g/dL Plt Count 283 (150-450) 10^3/uL Neut % (Auto) 75.1 (42.2-75.2) % Lymph % (Auto) 14.2 L (20.5-50.1) % [place] % (Auto) 8.6 H (2-8) % Eos % (Auto) 1.8 (1.0-3.0) % Baso % (Auto) 0.3 (0.0-1.0) % Sodium 143 (135-145) mmol/L Potassium 4.0 (3.6-5.0) mmol/L Chloride 107 (101-111) mmol/L Carbon Dioxide 28.0 (21.0-31.0) mmol/L Anion Gap 12.0 BUN 32 H (7-18) mg/dL Creatinine 0.8 (0.6-1.3) mg/dL Est Cr Clr Drug Dosing TNP Estimated GFR (MDRD) > 60 BUN/Creatinine Ratio 40.00 Glucose 70 L (74-105) mg/dL POC Glucose 68 L (83-110) mg/dl Calcium 8.9 (8.4-10.2) mg/dl Total Bilirubin 0.6 (0.2-1.0) mg/dL AST 17 (10-42) IU/L ALT 30 (10-60) IU/L Alkaline Phosphatase 94 (42-121) IU/L Troponin I < 0.02 (0.00-0.02) ng/ml Total Protein 7.1 (6.7-8.2) g/dl Albumin 3.7 (3.2-5.5) g/dl Globulin 3.4 Albumin/Globulin Ratio 1.09 Departure - Departure Time of Disposition: 14:36 Disposition: Home, Self-Care 01 Condition: Fair Clinical Impression: Left-sided weakness - Discharge Information *PRESCRIPTION DRUG MONITORING PROGRAM REVIEWED*: Not Applicable *COPY OF PRESCRIPTION DRUG MONITORING REPORT IN PATIENT FABIOLA: Not Applicable Instructions: Weakness, [id number] Care Plan Goals: The patient and jail were advised of the examination, lab and CT results during the visit. The jail was encouraged to continue to monitor the patient for any additional symptoms or concerns. If the patient has any additional symptoms, the patient should either follow-up with his primary care facility or return to the emergency department. Sepsis Event Note - Evaluation Sepsis Screening Result: No Definite Risk - Focused Exam Vital Signs: Vital Signs Temp Pulse Resp BP Pulse Ox 04/06/19 13:24 36.3 C 77 16 145/72 H 95 Date Exam was Performed: 04/06/19 Time Exam was Performed: 14:15 - My Orders Last 24 Hours: My Active Orders 04/06/19 13:10 EKG Documentation Completion [RC] URGENT - Assessment/Plan Last 24 Hours: My Active Orders 04/06/19 13:10 EKG Documentation Completion [RC] URGENT
== END 2019-04-06 15:23 | disposition home or self-care (01) ==
LOC: DL.ED 13:07
DX: R53.1 Weakness (principal); I10 Essential (primary) hypertension; E11.40 Type 2 diabetes mellitus with diabetic neuropathy, unspecified; E78.00 Pure hypercholesterolemia, unspecified; F03.90 Unspecified dementia, unspecified severity, without behavioral disturbance, psychotic disturbance, mood disturbance, and anxiety; Z88.0 Allergy status to penicillin; Z79.4 Long term (current) use of insulin; Z79.02 Long term (current) use of antithrombotics/antiplatelets; Z79.899 Other long term (current) drug therapy
CPT/HCPCS: 36415; 70450; 80053; 82962; 84484; 85025; 93005; 99285-25

== ENCOUNTER 2020-05-23 11:39 | Emergency (ER) | payer MEDICARE, OTHER ==
[2020-05-23 11:56] VITALS: BP 99/61
--- NOTE | 2020-05-23 12:11 | EDM.PDOC ---
ED HPI GENERAL MEDICAL PROBLEM - General Chief Complaint: General Stated Complaint: FLUID BUILD UP IN STOMACH LUNG Time Seen by Provider: 05/23/20 12:05 Source of Information: Reports: Patient, Provider History Limitations: Reports: No Limitations - History of Present Illness INITIAL COMMENTS - FREE TEXT/NARRATIVE: This 84 yo male patient was sent to the ED from the [facility] ([facility]) due to multiple concerns (abdominal distension, pleural effusion and progressive weakness). The patient did have a CT of his chest and abdomen 5 days ago and was in the clinic for a follow-up. 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 Onset: Unknown/Unsure Duration: Day(s):, Constant, Getting Worse Location: Reports: Chest, Abdomen Quality: Reports: Other Severity: Moderate Improves with: Reports: None Worsens with: Reports: None Context: Reports: Other Associated Symptoms: Reports: Nausea/Vomiting, Weakness - Related Data Allergies Allergy/AdvReac Type Severity Reaction Status Date / Time influenza virus vacc Allergy UNKNOWN Verified 05/17/20 11:24 trivalent, split [From Fluzone] Penicillins Allergy Rash Verified 04/11/20 11:22 Home Meds: Home Meds Insulin Glarg,Human.Rec.Analog [Lantus] 26 units SQ BEDTIME 10/20/13 [History] Potassium Chloride [Klor-Con M20] 20 meq PO BEDTIME 10/20/13 [History] Lisinopril 20 mg PO BID 11/03/15 [History] Insulin Lispro [Humalog] 8 units SQ ACDINNER 09/02/18 [History] Acetaminophen [Tylenol] 650 mg PO Q4H PRN tablet 09/07/18 [Rx] Clopidogrel [Plavix] 75 mg PO DAILY #30 tablet 09/07/18 [Rx] Labetalol [Normodyne] 200 mg PO BID #60 tablet 09/07/18 [Rx] atorvaSTATin [Lipitor] 20 mg PO BEDTIME #30 tablet 09/07/18 [Rx] Bisacodyl [Laxative Suppository] 10 mg RECTAL DAILY PRN 04/11/20 [History] Isosorbide Mononitrate [Imdur] 1 tab PO BID 04/11/20 [History] Magnesium Hydroxide [Milk of Magnesia] 2,400 mg PO DAILY PRN 04/11/20 [History] Sennosides [Laxative] 1 tab PO BEDTIME 04/11/20 [History] Vortioxetine Hydrobromide [Trintellix] 1 tab PO DAILY 04/11/20 [History] cloNIDine [Catapres] 0.1 mg PO Q12HR 04/11/20 [History] Past Medical History HEENT History: Reports: Cataract, Hard of Hearing, Impaired Vision Other HEENT History: wears glasses Cardiovascular History: Reports: High Cholesterol, Hypertension Respiratory History: Reports: None Gastrointestinal History: Reports: Chronic Constipation Genitourinary History: Reports: Prostate Disorder Musculoskeletal History: Reports: Other (See Below) Other Musculoskeletal History: left wrist drop Neurological History: Reports: Neuropathy, Diabetic, Seizure, Other (See Below) Other Neuro History: West Nile Virus Encephalitis Psychiatric History: Reports: None Other Psychiatric History: dementia Endocrine/Metabolic History: Reports: Diabetes, Type II Hematologic History: Reports: Anemia Immunologic History: Reports: None Oncologic (Cancer) History: Reports: Prostate 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 Dermatologic History: Reports: Other (See Below) Other Dermatologic History: patchy skin dryness - Infectious Disease History Infectious Disease History: Reports: Chicken Pox, Measles - Past Surgical History HEENT Surgical History: Reports: Adenoidectomy, Cataract Surgery, Tonsillectomy Cardiovascular Surgical History: Reports: None GI Surgical History: Reports: Colonoscopy Male Surgical History: Reports: None Other Male Surgeries/Procedures: prostate removed Endocrine Surgical History: Reports: None Neurological Surgical History: Reports: None Oncologic Surgical History: Reports: None Dermatological Surgical History: Reports: None Social & Family History - Family History Family Medical History: No Pertinent Family History - Caffeine Use Caffeine Use: Reports: None - Living Situation & Occupation Living situation: Reports: Single ED ROS GENERAL - Review of Systems Review Of Systems: Comprehensive ROS is negative, except as noted in HPI. ED EXAM, GENERAL - Physical Exam Exam: See Below Exam Limited By: No Limitations General Appearance: Alert, WD/WN, Mild Distress Eye Exam: Bilateral Eye: EOMI, Normal Inspection, PERRL Ears: Normal External Exam, Normal Canal, Hearing Grossly Normal, Normal TMs Nose: Normal Inspection, Normal Mucosa, No Blood Throat/Mouth: Normal Inspection, Normal Lips, Normal Teeth, Normal Gums, Normal Oropharynx, Normal Voice, No Airway Compromise Head: Atraumatic, Normocephalic Neck: Normal Inspection, Full Range of Motion Respiratory/Chest: No Respiratory Distress, No Accessory Muscle Use, Chest Non- Tender, Decreased Breath Sounds (bilateral lower lobes) Cardiovascular: Normal Peripheral Pulses, Regular Rate, Rhythm GI/Abdominal: Distended, Tender (mild) (Male) Exam: Deferred Rectal (Males) Exam: Deferred Back Exam: Normal Inspection, Full Range of Motion, NT Extremities: Pedal Edema, Other (decreased strength in left upper and left lower extremities) Course - Vital Signs Last Recorded V/S: Last Vital Signs Temp 36.6 C 05/23/20 11:52 Pulse 97 05/23/20 13:17 Resp 20 05/23/20 11:52 BP 99/61 05/23/20 11:52 Pulse Ox 96 05/23/20 11:52 - Orders/Labs/Meds Orders: Active Orders 24 hr Category Date Time Status EKG Documentation Completion [RC] STAT Care 05/23/20 12:50 Active RT Aerosol Therapy [RC] ASDIRECTED Care 05/23/20 12:56 Active CULTURE BLOOD [BC] Stat Lab 05/23/20 12:05 Received UA RFX MARIO AND CULT IF INDIC [URIN] Urgent Lab 05/23/20 11:55 Ordered Dextrose 50% in Water Med 05/23/20 12:55 Active 50 ml IV ASDIRECTED PRN Glucagon,Human Recombinant [GlucaGen] Med 05/23/20 12:55 Active 1 mg IM ASDIRECTED PRN Magnesium Sulfate/D5W [Magnesium Sulfate in D5W 1 GM/ Med 05/23/20 13:00 Active 100 ML] 1 gm in 100 ml IV ONETIME Medication Orders Dextrose/Water (Dextrose 50% In Water) 50 ml IV ASDIRECTED PRN PRN Reason: Hypoglycemia Last Admin: 05/23/20 13:08 Dose: 50 ml Documented by: YAS Glucagon (Glucagen) 1 mg IM ASDIRECTED PRN PRN Reason: Hypoglycemia Magnesium Sulfate/Dextrose (Magnesium Sulfate In D5w 1 Gm/100 Ml) 1 gm in 100 mls @ 100 mls/hr IV ONETIME JAVON Last Admin: 05/23/20 13:09 Dose: 100 mls/hr Documented by: YAS Labs: Laboratory Tests 05/23/20 05/23/20 05/23/20 Range/Units 11:57 12:05 12:05 WBC 11.8 H (5.0-10.0) 10^3/uL RBC 3.74 L (4.6-6.2) 10^6/uL Hgb 10.8 L (14.0-18.0) g/dL Hct 32.9 L (40.0-54.0) % MCV 88.0 (80-100) fL MCH 28.9 (27.0-34.0) pg MCHC 32.8 L (33.0-35.0) g/dL Plt Count 323 (150-450) 10^3/uL Neut % (Auto) 81.2 H (42.2-75.2) % Lymph % (Auto) 8.2 L (20.5-50.1) % [place] % (Auto) 9.5 H (2-8) % Eos % (Auto) 0.9 L (1.0-3.0) % Baso % (Auto) 0.2 (0.0-1.0) % Sodium 136 (136-145) mmol/L Potassium 6.8 H* D (3.5-5.1) mmol/L Chloride 104 (98-107) mmol/L Carbon Dioxide 25 (21-32) mmol/L Anion Gap 13.8 H (7-13) mEq/L BUN 63 H D (7-18) mg/dL Creatinine 1.73 H (0.70-1.30) mg/dL Est Cr Clr Drug Dosing 29.65 mL/min Estimated GFR (MDRD) 38 BUN/Creatinine Ratio 36.4 (No establ ref range) Glucose 214 H (74-99) mg/dL POC Glucose 221 H (83-110) mg/dl Lactic Acid (0.4-2.0) mmol/L Calcium 8.3 L (8.5-10.1) mg/dL Total Bilirubin 0.3 (0.2-1.0) mg/dL AST 25 (15-37) U/L ALT 16 (16-63) U/L Alkaline Phosphatase 84 (46-116) U/L Troponin I (0.000-0.056) ng/mL Total Protein 5.3 L (6.4-8.2) g/dL Albumin 2.2 L (3.4-5.0) g/dL Globulin 3.1 Albumin/Globulin Ratio 0.71 SARS CoV-2 RNA Rapid RADHA (NEGATIVE) 05/23/20 05/23/20 05/23/20 Range/Units 12:05 12:05 12:31 WBC (5.0-10.0) 10^3/uL RBC (4.6-6.2) 10^6/uL Hgb (14.0-18.0) g/dL Hct (40.0-54.0) % MCV (80-100) fL MCH (27.0-34.0) pg MCHC (33.0-35.0) g/dL Plt Count (150-450) 10^3/uL Neut % (Auto) (42.2-75.2) % Lymph % (Auto) (20.5-50.1) % [place] % (Auto) (2-8) % Eos % (Auto) (1.0-3.0) % Baso % (Auto) (0.0-1.0) % Sodium (136-145) mmol/L Potassium (3.5-5.1) mmol/L Chloride (98-107) mmol/L Carbon Dioxide (21-32) mmol/L Anion Gap (7-13) mEq/L BUN (7-18) mg/dL Creatinine (0.70-1.30) mg/dL Est Cr Clr Drug Dosing mL/min Estimated GFR (MDRD) BUN/Creatinine Ratio (No establ ref range) Glucose (74-99) mg/dL POC Glucose (83-110) mg/dl Lactic Acid 1.3 (0.4-2.0) mmol/L Calcium (8.5-10.1) mg/dL Total Bilirubin (0.2-1.0) mg/dL AST (15-37) U/L ALT (16-63) U/L Alkaline Phosphatase (46-116) U/L Troponin I < 0.017 (0.000-0.056) ng/mL Total Protein (6.4-8.2) g/dL Albumin (3.4-5.0) g/dL Globulin Albumin/Globulin Ratio SARS CoV-2 RNA Rapid RADHA Negative (NEGATIVE) Meds: Medications Generic Name Dose Route Start Last Admin Trade Name Freq PRN Reason Stop Dose Admin Dextrose/Water 50 ml 05/23/20 12:55 05/23/20 13:08 Dextrose 50% In Water IV 50 ml ASDIRECTED PRN Administration Hypoglycemia Glucagon 1 mg 05/23/20 12:55 Glucagen IM ASDIRECTED PRN Hypoglycemia Magnesium Sulfate/Dextrose 1 gm in 100 mls @ 100 mls/hr 05/23/20 13:00 05/23/20 13:09 Magnesium Sulfate In D5w 1 Gm/100 Ml IV 100 mls/hr ONETIME JAVON Administration Discontinued Medications Generic Name Dose Route Start Last Admin Trade Name Freq PRN Reason Stop Dose Admin Albuterol 2.5 mg 05/23/20 12:55 05/23/20 13:07 Proventil Neb Soln NEB 05/23/20 12:56 2.5 mg ONETIME ONE Administration Insulin Human Regular 5 unit 05/23/20 12:55 05/23/20 13:06 Humulin R IV 05/23/20 12:56 5 units ONETIME ONE Administration Sodium Polystyrene Sulfonate 45 gm 05/23/20 12:57 05/23/20 13:10 Kayexalate PO 05/23/20 12:58 45 gm NOW ONE Administration Departure - Departure Time of Disposition: 14:15 Disposition: DC/Tfer to Acute Hospital 02 Condition: Fair Clinical Impression: Hyperkalemia, Pleural effusion Abdominal ascites Qualifiers: Ascites type: other type Qualified Code(s): R18.8 - Other ascites - Discharge Information *PRESCRIPTION DRUG MONITORING PROGRAM REVIEWED*: Not Applicable *COPY OF PRESCRIPTION DRUG MONITORING REPORT IN PATIENT FABIOLA: Not Applicable Forms: Interfacility Transfer EMTALA Care Plan Goals: Discussed the patient's history, examination, lab, EKG, CT and treatments with Dr. Martin. Dr. Martin accepted the patient for continued evaluation and treatment as an inpatient at [facility] in [place]. The patient will be transported by [facility]. Sepsis Event Note (ED) - Evaluation Sepsis Screening Result: No Definite Risk - Focused Exam Vital Signs: Vital Signs Temp Pulse Pulse Resp BP Pulse Ox 05/23/20 13:17 97 05/23/20 11:52 36.6 C 69 68 20 99/61 96 - My Orders Last 24 Hours: My Active Orders 05/23/20 11:55 UA RFX MARIO AND CULT IF INDIC [URIN] Urgent 05/23/20 12:05 CULTURE BLOOD [BC] Stat 05/23/20 12:50 EKG Documentation Completion [RC] STAT 05/23/20 12:55 Dextrose 50% in Water 50 ml IV ASDIRECTED PRN Glucagon,Human Recombinant [GlucaGen] 1 mg IM ASDIRECTED PRN 05/23/20 12:56 RT Aerosol Therapy [RC] ASDIRECTED 05/23/20 13:00 Magnesium Sulfate/D5W [Magnesium Sulfate in D5W 1 GM/100 ML] 1 gm in 100 ml IV ONETIME - Assessment/Plan Last 24 Hours: My Active Orders 05/23/20 11:55 UA RFX MARIO AND CULT IF INDIC [URIN] Urgent 05/23/20 12:05 CULTURE BLOOD [BC] Stat 05/23/20 12:50 EKG Documentation Completion [RC] STAT 05/23/20 12:55 Dextrose 50% in Water 50 ml IV ASDIRECTED PRN Glucagon,Human Recombinant [GlucaGen] 1 mg IM ASDIRECTED PRN 05/23/20 12:56 RT Aerosol Therapy [RC] ASDIRECTED 05/23/20 13:00 Magnesium Sulfate/D5W [Magnesium Sulfate in D5W 1 GM/100 ML] 1 gm in 100 ml IV ONETIME
[2020-05-23 12:44] LABS: ANION GAP 13.8 mEq/L (7-13)
[2020-05-23] MEDS ORDERED: Albuterol 0.083% 2.5 MG/3 ML Neb Soln NEB ONE (12:55)
[2020-05-23] MEDS ORDERED: Glucagon,Human Recombinant 1 MG Vial IM PRN (12:55)
[2020-05-23] MEDS ORDERED: 50% Dextrose in Water 50 ML Syringe IV PRN (12:55)
[2020-05-23] MEDS ORDERED: Insulin Regular, Human 100 Units/ML 3 ML Vial IV ONE (12:55)
[2020-05-23] MEDS ORDERED: Sodium Polystyrene Sulfonate 15 GM/60 ML Susp 60 ML Bot PO ONE (12:57)
[2020-05-23] MEDS ORDERED: Magnesium Sulfate/D5W 1 GM/100 ML BAG IV SCH (13:00)
[2020-05-23 13:19] VITALS: PULSE 97
--- NOTE | 2020-05-23 14:06 | CT ---
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 Radical prostatectomy." Scan technique: Volume acquisition of data from the abdomen and pelvis obtained without oral or IV contrast while patient was lying supine on the Siemens multislice scanner [place], [place]. All data archived in the PACS system for storage, reformatting axial/sagittal/coronal planes and study. Interpretation: 1. Asymmetric large dependent subpulmonic pleural effusion left base with underlying lower lobe atelectasis unchanged in volume or appearance since recent 18 May exam. 2. Extensive retroperitoneal lymphadenopathy. 3. Diseased gallbladder. 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 No ductal dilatation. 4. Stomach, spleen, unenhanced pancreas and adrenal glands unremarkable. 5 no sign of renal cortical mass, nephrolithiasis or obstructive uropathy. 6. Densely calcified "cast" normal caliber aorta iliac vessels. 7. No sign of abdominal mass lesion or mechanical bowel obstruction. No free intraperitoneal air. CONCLUSION: Markedly abnormal (pleural effusion, ascites, diseased gallbladder and retroperitoneal lymphadenopathy) as noted on recent exam 18 May 2020.
== END 2020-05-23 15:00 ==
LOC: DL.ED 11:39
DX: R18.8 Other ascites (principal); J90 Pleural effusion, not elsewhere classified; E87.6 Hypokalemia; I10 Essential (primary) hypertension; E11.40 Type 2 diabetes mellitus with diabetic neuropathy, unspecified; E78.00 Pure hypercholesterolemia, unspecified; Z20.822 Contact with and (suspected) exposure to COVID-19; Z88.0 Allergy status to penicillin; Z88.7 Allergy status to serum and vaccine; Z79.4 Long term (current) use of insulin; Z79.02 Long term (current) use of antithrombotics/antiplatelets; Z79.899 Other long term (current) drug therapy
CPT/HCPCS: 36415; 74176; 80053; 82962; 83605; 84484; 85025; 87040; 93005; 94640; 96365; 99284; 99285-25; A9270-GY; J1815-GY; J3475; J7613-GY; U0002